=== PATIENT | female | born 1945 | race Caucasian/White ===

== ENCOUNTER 2019-11-04 15:42 | Outpatient (REF) | payer SELFPAY ==
[2019-11-04 19:14] LABS: Chol HDL Ratio 5.92 mg/dL (0.0-4.40); Cholesterol 284 mg/dL (0-200); Glucose 203 mg/dL (65-115); HDL Cholesterol 48 mg/dL (60-100); Triglycerides 559 mg/dL (0-150)
[2019-11-04 21:07] LABS: Estmated Average Glucose 160; Hemoglobin A1C 7.2 % (4.0-6.0)
[2019-11-04 21:08] LABS: LDL Cholesterol Direct 175 mg/dL (0-100)
== END 2019-11-04 15:43 | disposition home or self-care (01) ==
LOC: LAB 15:42
PROVIDERS: Family Provider Nurse Practitioner Family; PCP Nurse Practitioner Family; Visit Provider Dermatology
DX: Z13.9 Encounter for screening, unspecified (principal)
CPT/HCPCS: 80061; 82947; 83036; 83721

== ENCOUNTER → 2019-11-27 15:26 | Outpatient (BNVA) | payer MEDICARE, SELFPAY | PROVIDERS: Family Provider Nurse Practitioner Family; PCP Nurse Practitioner Family; Visit Provider Nurse Practitioner Family | DX: M25.532 Pain in left wrist (principal); M19.032 Primary osteoarthritis, left wrist | CPT/HCPCS: 73110 ==

== ENCOUNTER → 2019-12-08 10:17 | Outpatient (BNVA) | payer MEDICARE, SELFPAY | PROVIDERS: Family Provider Nurse Practitioner Family; PCP Nurse Practitioner Family; Visit Provider Nurse Practitioner Family | DX: D64.9 Anemia, unspecified (principal); E03.9 Hypothyroidism, unspecified; G56.02 Carpal tunnel syndrome, left upper limb; W57.XXXA Bitten or stung by nonvenomous insect and other nonvenomous arthropods, initial encounter | CPT/HCPCS: 80053; 81001; 83540; 84443; 85025 ==

== ENCOUNTER → 2020-01-28 09:37 | Outpatient (BNVA) | payer MEDICARE, SELFPAY | PROVIDERS: Family Provider Nurse Practitioner Family; PCP Nurse Practitioner Family; Visit Provider Nurse Practitioner Family | DX: R20.0 Anesthesia of skin (principal); E11.59 Type 2 diabetes mellitus with other circulatory complications | CPT/HCPCS: 72040; 83036 ==

== ENCOUNTER 2020-02-26 09:57 | Outpatient (CLI) | payer MEDICARE, SELFPAY ==
--- NOTE | 2020-02-26 10:30 | CT_ITS ---
WS: [id number] CT CERVICAL SPINE TECHNIQUE: Noncontrast CT of the cervical spine with coronal and sagittal reformatted images. CLINICAL INFORMATION: neck pain and arm numbness COMPARISON: None. DLP: 1446.[address] scans at [facility] use at least one of these dose optimization techniques: automat ed exposure control; mA and/or kV adjustment per patient size (includes targeted exams where dose is matched to clinical indication); or iterative reconstruction. FINDINGS: Exaggeration the normal cervical lordosis. Normal C1-2 articulation. No high-grade central canal sten osis. Mild spondylitic changes worse at C4-C6 with osteophytic ridging. C2-C3: Normal. C3-C4: Mild disc osteophytic ridging. Spinal canal and foramen are patent. C4-C5: Mild disc osteophytic ridging. Moderate to severe left and no significant right bony foraminal narrowing. Moderate facet arthropathy. Mild central canal stenosis. C5-C6: Disc osteophytic ridging with severe left and moderate right bony foraminal narrowing. Moderat e facet arthropathy. Mild central canal stenosis. C6-C7: Left eccentric disc osteophyte ridging. Moderate to severe left and no significant right jose inal narrowing. Mild facet arthropathy. Mild central canal stenosis with a small left pericentral dis c osteophyte protrusion. C7-T1: No significant disc bulging. Spinal canal and foramen are patent. Visualized posterior nasopharynx: Normal. Prevertebral soft tissues: Normal. CT/CT cervical spin wo con* [id number] IMPRESSION: 1. Slight exaggeration of the normal cervical lordosis. Mild spondylitic smith es. 2. Disc osteophyte complexes at C4-C5, C5-C6, and C6-C7 with mild central stacey l stenosis at these levels. 3. Moderate to severe bony foraminal narrowing left C4-C5, left C5-C6 ,and lef t C6-C7. 4. Left pericentral disc osteophyte protrusion left C6-C7 with mild central ca nal stenosis.
== END 2020-02-26 09:58 | disposition home or self-care (01) ==
PROVIDERS: Family Provider Nurse Practitioner Family; PCP Nurse Practitioner Family; Visit Provider Nurse Practitioner Family
DX: M54.2 Cervicalgia (principal); R20.0 Anesthesia of skin; M25.78 Osteophyte, vertebrae; M48.02 Spinal stenosis, cervical region
CPT/HCPCS: 72125

== ENCOUNTER → 2020-03-02 11:21 | Outpatient (BNVA) | payer MEDICARE, SELFPAY | PROVIDERS: Family Provider Nurse Practitioner Family; PCP Nurse Practitioner Family; Visit Provider Nurse Practitioner Family | DX: D64.9 Anemia, unspecified (principal); R53.83 Other fatigue | CPT/HCPCS: 82728; 82746; 83540; 85025 ==

== ENCOUNTER → 2020-03-21 11:31 | Outpatient (BNVA) | payer MEDICARE, SELFPAY | PROVIDERS: Family Provider Nurse Practitioner Family; PCP Nurse Practitioner Family; Referring Provider Licensed Practical Nurse; Visit Provider Specialist | DX: M50.020 Cervical disc disorder with myelopathy, mid-cervical region, unspecified level (principal); G56.02 Carpal tunnel syndrome, left upper limb | CPT/HCPCS: 95908 ==

== ENCOUNTER 2020-03-24 07:07 | Outpatient (CLI) | payer MEDICARE, SELFPAY ==
--- NOTE | 2020-03-24 07:19 | NMCV_ITS ---
NM darby perf SPECT r/s* [id number] Dai Ross Age: 74 Gender: F : 1945 Exam Date: 03/24/2020 08:16 Ordering Phys: Rosemary Szymanski MD ([email or web address]) Technologist: FLORY Hatfield Exam Location: [facility] Indications: CORONARY ARTERY DISEASE, CHEST PAIN, FATIGUE, SHORTNESS OF BREATH STRESS TEST Please [facility] IMAGE PROTOCOL Rest/Stress 1 Lexiscan Day Radiopharmaceutical Dose (mCi) Administration Site Administered by Rest: Tc-99m 10.8 IV FLORY Ribeiro Sestamibi Stress:Tc-99m 32.4 IV FLORY Hatfield Sestamiandrae Rest: 24-Mar-2020 60 Discovery 630 Stress: 24-Mar-2020 30 Discovery 630 0.4mg Lexiscan. Images obtained in supine and prone position. SPECT RESULTS Technical Quality: Excellent Raw Data Analysis: Normal Image Corrections: No attenuation or motion correction applied Summed Stress Score: 3 Summed Rest Score: 0 Summed Difference Score: 3 PERFUSION FINDINGS Small area of reversibility noted in the apical region of the left ventricle in the absence of wall motion abnormality it could be apical thinning artifact. This study is negative for ischemia. EKG segment will be documented separately. FUNCTIONAL RESULTS (calculated via Gated SPECT) Stress Image LV EF (%): 72 Stress EDV (mL):60 TID: 1.06 Stress ESV (mL):17 Rest Image LV EF (%): 72 FUNCTIONAL FINDINGS: There is normal left ventricular systolic function. IMPRESSIONS Small area of reversibility noted in the apical region of the left ventricle in the absence of wall motion abnormality it could be apical thinning artifact. This study is negative for ischemia. EKG segment will be documented separately. Rosemary Szymanski MD (Electronically Signed) Final Date: 25 March 2020 13:58 S
--- NOTE | 2020-03-24 07:19 | ECG_ITS ---
[facility] Test Date: 2020-03-24 Pat Name: Dai Ross Department: Room: Gender: Female Card Grader: : 1945 Requested By: Rosemary Szymanski Order Number: [id number] Twila MD: Rosemary Szymanski M.D. Interpretive Statements NAME OF STUDY: LEXISCAN SESTAMIBI STRESS TEST INDICATION: CAD/CHEST PAIN, NOTE: Please note that this is the electrocardiogram portion of the Lexiscan/Sestamibi stress test. The perfusion scan will be documented separately. DATA: Baseline heart rate was 49 beats per minute. Baseline blood pressure was 196/88 millimeters of mercury. Target heart rate was 148. Maximum heart rate achieved was 100. which was 67 % of the predicted target heart rate. Maximum blood pressure was 219/101 millimeters of mercury. The reason for ending the test was completion of the protocol. The patient did not experience any symptoms. ELECTROCARDIOGRAM: BASELINE: Sinus bradycardia. Normal axis. Inferolateral ST-T changes nonspecific abnormal. No arrhythmia noted. EXERCISE: After Lexiscan injection, no ST-T changes suggestive of ischemic noted. No arrhythmia noted. CONCLUSION: Please note due to baseline abnormality of the EKG specificity and sensitivity of the EKG portion of LexiScan MIBI stress test will be low 1. EKG not suggestive of ischemia 2. Lexiscan injection unremarkable. 3. Perfusion scan will be documented separately. Electronically Signed On 03-31-2020 22:21:58 CDT by Rosemary Szymanski M.D. [id number]
[2020-03-24 07:29] VITALS: BMI 27.6
[2020-03-24] MEDS: regadenoson 0.4 Mg/5 ml Syringe IVP (08:57)
[2020-03-24 09:13] VITALS: BP 182/83; PULSE 97
== END 2020-03-24 07:08 | disposition home or self-care (01) ==
PROVIDERS: Family Provider Nurse Practitioner Family; PCP Nurse Practitioner Family; Visit Provider Internal Medicine Cardiovascular Disease
DX: I25.10 Atherosclerotic heart disease of native coronary artery without angina pectoris (principal); R07.9 Chest pain, unspecified; R53.83 Other fatigue; R06.02 Shortness of breath
CPT/HCPCS: 78452; 93017; A9500; J2785

== ENCOUNTER 2020-04-05 12:40 | Outpatient (CLI) | payer MEDICARE, SELFPAY ==
--- NOTE | 2020-04-05 13:00 | MR_ITS ---
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 COMPARISON: 02/26/2020 Mild increase in the cervical lordosis. No marrow edema or fracture. Increased T2 signal in the central cervical cord begins at the mid C2 level. Intermittently visualize d increased T2 signal of the cervical cord into the upper thoracic cord. Increased signal extends at least to T5. Increased signal measures up to 2 mm in diameter and is most significant at the C5-T1 le tremaine. Craniocervical junction, C1 and C2 relationship, odontoid process and soft tissues are normal. C2-C3: Normal. C3-C4: Normal. C4-C5: Small central disc protrusion. Osteophytic ridging and mild central and bilateral foraminal st enosis. C5-C6: Diffuse osteophytic ridging and disc bulging. Quality of examination is limited which is proba larry due to lordosis of the patient. There is at least mild central and bilateral foraminal stenosis. Suspect moderate stenosis at the foramen but is difficult to quantify. C6-C7: Diffuse osteophytic ridging and annular disc bulging. Disc osteophyte complex LEFT paracentral extends into the foramen. There is at least moderate central and foraminal stenosis. C7-T1: No stenosis appreciated. Limited evaluation of the paraspinal soft tissues. MR/MR cervical spin wo con* [id number] IMPRESSION: 1. Quality of this examination is limited. 2. 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 The ent tommie syrinx is not evident as it extends into the thoracic cord. 3. Multilevel central and foraminal stenoses beginning at C4-5 through C6-7. M ost significant stenosis appears to be at C5-6 and C6-7. Stenosis difficult to quantify due to quality of examination.
--- NOTE | 2020-04-05 13:45 | XR_ITS ---
WS: [id number] LATERAL CERVICAL SPINE: 3 view. Lateral radiographs are performed in upright neutral, flexion and extension to the patient's toleranc e. HISTORY: Neck pain COMPARISON: 01/28/2020 Marked increase in cervical lordosis. Mild disc space narrowing throughout. Endplate osteophytes at a ll levels. Diffuse osteopenia. With flexion and extension no instability. XR/XR cervical spine fl/ex [id number] IMPRESSION: Increase in cervical lordosis with no instability.
== END 2020-04-05 12:41 | disposition home or self-care (01) ==
LOC: RADWPI 12:43
PROVIDERS: Family Provider Nurse Practitioner Family; PCP Nurse Practitioner Family; Visit Provider Licensed Practical Nurse
DX: M50.020 Cervical disc disorder with myelopathy, mid-cervical region, unspecified level (principal); M40.50 Lordosis, unspecified, site unspecified; M48.02 Spinal stenosis, cervical region
CPT/HCPCS: 72040; 72141

== ENCOUNTER → 2020-04-20 10:52 | Outpatient (BNVA) | payer MEDICARE, SELFPAY | PROVIDERS: Family Provider Nurse Practitioner Family; PCP Nurse Practitioner Family; Visit Provider Licensed Practical Nurse | DX: M50.020 Cervical disc disorder with myelopathy, mid-cervical region, unspecified level (principal); G95.0 Syringomyelia and syringobulbia; M48.02 Spinal stenosis, cervical region; M47.12 Other spondylosis with myelopathy, cervical region; G56.02 Carpal tunnel syndrome, left upper limb | CPT/HCPCS: 99214 ==

== ENCOUNTER 2020-04-28 08:25 | Outpatient (CLI) | payer MEDICARE, SELFPAY ==
--- NOTE | 2020-04-28 08:45 | MR_ITS ---
WS: [id number] MRI CERVICAL SPINE, with and without contrast. HISTORY: Multilevel syrinx COMPARISON: 04/05/2020. MRI cervical spine performed with and without contrast. Moderate increase in cervical lordosis. Multilevel facet joint arthritis, disc space narrowing and os teophytosis. Syrinx beginning in the central cord at the C2 level is intermittently visualized throughout the cerv ical cord into the upper thoracic cord at least to the level of T3-4. The syrinx is very small calibe r at the T2 level and better visualized on the prior study. Slightly lobulated syrinx posterior to th e C4-5 and C5-6 levels is the area widest diameter near 3 mm. Diameter of 3 mm is noted C5 level and also T1. No interval progression. No mass or abnormal enhancement. Craniocervical junction, C1 and C2 relationship, odontoid process and soft tissues are normal. C2-C3: Normal. C3-C4: Normal. C4-C5: Mild osteophytic ridging and small central disc protrusion. Mild bilateral foraminal and centr al stenosis. C5-C6: Diffuse osteophytic ridging with annular disc bulging and a central protrusion. Mild central a nd bilateral foraminal stenosis. C6-C7: Diffuse osteophytic ridging and annular disc bulging. LEFT paracentral disc osteophyte complex with mild encroachment upon the thecal sac. Moderate central and bilateral foraminal stenosis. C7-T1: Normal. Paraspinal soft tissue are normal. Mild ectopia the cerebellar tonsils. Normal enhancement. MR/MR cervical spine wo/w [id number] IMPRESSION: 1. Multifocal syrinx beginning at the level of C2 into the upper thoracic cord is similar to the prior study of 04/05/2020. No mass or abnormal enhancement. L argest diameter 3 mm. 2. Multilevel mild to moderate central and bilateral foraminal stenosis with n o progression. Most significant stenosis at C5-6 and C6-7 as described on the p rior study also.
--- NOTE | 2020-04-28 09:30 | MR_ITS ---
WS: [id number] MRI THORACIC SPINE with and without contrast. HISTORY: Multilevel Syrinx COMPARISON: None available. TECHNIQUE: Multiplanar sequences are performed in sagittal and axial planes. Study performed with and without contrast. Scoliosis and RIGHT convex curvature of the mid to upper thoracic spine. Increase in kyphosis. Multilevel syrinx extending through the cervical cord continues into the thoracic cord. 5 mm diameter of the the syrinx which continues from T1 to T4. Syrinx is reidentified at the T4-5 level through T6 . There is a very small amount of increased signal centrally in the cord at T7 and T8 and also distal ly at the T11 level which I believe is extension of the syrinx throughout nearly the entire cord. Zeb y small caliber syrinx distally. No abnormal enhancement or tumor is identified. Conus tapers normall y and ends at the L1 level. T1-2: Facet arthropathy with no stenosis. T2-3: Facet arthropathy with no stenosis. T3-4: Normal. T4-5: Normal. T5-6: Normal. T6-7: Central to LEFT paracentral moderate-sized disc protrusion encroaching upon the ventral thecal sac with no cord contact. T7-8: Facet arthritis without stenosis. T8-9: Moderate-sized RIGHT paracentral disc protrusion without cord contact. Moderate bilateral fora alphonse stenosis. T9-10: Facet joint arthritis. Moderate bilateral foraminal stenosis. T10-11: Normal. T11-12: Mild annular disc bulging and facet arthritis. Disc osteophyte disease at L1-2 and L2-3 without significant central stenosis. Large hiatal hernia. T he entire stomach is nearly intrathoracic. Mild atherosclerosis and ectasia thoracic aorta. MR/MR thoracic spine wo/w [id number] IMPRESSION: 1. Nearly contiguous multilevel thoracic cord syrinx. Multifocal areas of syri nx noted with the largest component in the upper thoracic cord measuring 5 mm d iameter. 2. No severe central stenosis. 3. Moderate bilateral foraminal stenosis at T8-9 and T9-10. 4. No enhancing tumor. 5. Moderate-sized LEFT paracentral disc protrusion at T6-7 without cord contac t. 6. Moderate size RIGHT paracentral disc protrusion at T8-9 without cord contac t.
[2020-04-28 09:39] LABS: Blood Urea Nitrogen 17 mg/dL (8-23)
== END 2020-04-28 08:26 | disposition home or self-care (01) ==
PROVIDERS: PCP Nurse Practitioner Family; Visit Provider Licensed Practical Nurse
DX: G95.0 Syringomyelia and syringobulbia (principal); M48.04 Spinal stenosis, thoracic region; M51.24 Other intervertebral disc displacement, thoracic region; M48.02 Spinal stenosis, cervical region
CPT/HCPCS: 36415; 72156; 72157; 82565; 84520; A9579

== ENCOUNTER → 2020-05-03 11:59 | Outpatient (BNVA) | payer MEDICARE, SELFPAY | PROVIDERS: PCP Nurse Practitioner Family; Visit Provider Licensed Practical Nurse | DX: M19.90 Unspecified osteoarthritis, unspecified site (principal); G95.0 Syringomyelia and syringobulbia; M50.020 Cervical disc disorder with myelopathy, mid-cervical region, unspecified level; M48.02 Spinal stenosis, cervical region; M47.12 Other spondylosis with myelopathy, cervical region; G56.02 Carpal tunnel syndrome, left upper limb | CPT/HCPCS: 99214 ==

== ENCOUNTER 2020-06-09 06:00 | Outpatient (RCR) | payer MEDICARE, SELFPAY | END 2020-07-09 23:59 | disposition home or self-care (01) | LOC: WPT 06:00 | PROVIDERS: PCP Nurse Practitioner Family; Referring Provider Licensed Practical Nurse; Visit Provider Licensed Practical Nurse | DX: M50.020 Cervical disc disorder with myelopathy, mid-cervical region, unspecified level (principal); M48.02 Spinal stenosis, cervical region; M47.892 Other spondylosis, cervical region | CPT/HCPCS: 97163; 97530 ==

== ENCOUNTER → 2020-06-29 14:33 | Outpatient (BNVA) | payer MEDICARE, SELFPAY | PROVIDERS: PCP Nurse Practitioner Family; Visit Provider Nurse Practitioner Family | DX: I10 Essential (primary) hypertension (principal); F41.9 Anxiety disorder, unspecified; E11.59 Type 2 diabetes mellitus with other circulatory complications; E78.2 Mixed hyperlipidemia; E55.9 Vitamin D deficiency, unspecified; F32.9 Major depressive disorder, single episode, unspecified | CPT/HCPCS: 80053; 80061; 81003; 82306; 83036; 84443; 85025 ==

== ENCOUNTER → 2020-07-08 10:31 | Outpatient (BNVA) | payer MEDICARE, SELFPAY | PROVIDERS: PCP Nurse Practitioner Family; Visit Provider Nurse Practitioner Family | DX: Z11.59 Encounter for screening for other viral diseases (principal) | CPT/HCPCS: 87635 ==

== ENCOUNTER → 2020-08-12 08:46 | Outpatient (BNVA) | payer MEDICARE, SELFPAY | PROVIDERS: PCP Nurse Practitioner Family; Visit Provider Nurse Practitioner Family | DX: E55.9 Vitamin D deficiency, unspecified (principal); I10 Essential (primary) hypertension; E78.2 Mixed hyperlipidemia; E11.59 Type 2 diabetes mellitus with other circulatory complications | CPT/HCPCS: 80053; 80061; 81003; 82306; 83036; 84443; 85025 ==

== ENCOUNTER 2020-10-03 09:38 | Outpatient (CLI) | payer MEDICARE, SELFPAY ==
--- NOTE | 2020-10-03 09:45 | CT_ITS ---
WS: [id number] CT HEAD NONCONTRAST HISTORY: J32.9 - Chronic sinusitis, unspecified TECHNIQUE: Contiguous axial imaging performed through the brain in 2.5 mm imaging. Bone and soft tiss ue windows. Sagittal and coronal reformats reviewed. All CT scans at [facility] use at le ast one of these dose optimization techniques: automated exposure control; mA and/or kV adjustment pe r patient size (includes targeted exams where dose is matched to clinical indication); or iterative r econstruction. DLP: 856.13 mGy.cm COMPARISON: 12/15/2005 No acute intracranial hemorrhage, midline shift or mass effect. Very mild atrophy and mild chronic microvascular ischemic disease. Mild progression of microvascular disease since 2005. No large infarcts. Ventricles: Normal size with no hydrocephalus. Paranasal sinuses: As visualized are clear. Mastoid air cells: Well pneumatized. Calvarium and scalp: Skull is intact with no soft tissue edema or swelling. CT/CT head wo con* [id number] IMPRESSION: 1. No acute intracranial hemorrhage or edema. 2. Mild atrophy and mild chronic microvascular ischemic disease. 3. No significant sinus disease.
== END 2020-10-03 09:39 | disposition home or self-care (01) ==
LOC: RAD 09:42
PROVIDERS: PCP Nurse Practitioner Family; Visit Provider Nurse Practitioner Family
DX: J32.9 Chronic sinusitis, unspecified (principal); I67.82 Cerebral ischemia; G31.9 Degenerative disease of nervous system, unspecified
CPT/HCPCS: 70450

== ENCOUNTER → 2020-12-01 00:01 | Outpatient (BNVA) | payer MEDICARE, SELFPAY | PROVIDERS: PCP Nurse Practitioner Family; Visit Provider Nurse Practitioner Family | DX: E03.9 Hypothyroidism, unspecified (principal); I10 Essential (primary) hypertension; E55.9 Vitamin D deficiency, unspecified; E78.2 Mixed hyperlipidemia; D64.9 Anemia, unspecified; E11.59 Type 2 diabetes mellitus with other circulatory complications | CPT/HCPCS: 80053; 80061; 81003; 82306; 82607; 82746; 83036; 83550; 84443; 85025 ==

== ENCOUNTER 2021-02-03 22:51 | Emergency (ER) | payer MEDICARE, SELFPAY ==
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
[2021-02-03 23:01] VITALS: BP 158/103; PULSE 75; RESP 18; TEMP 36.2; O2SAT 97; BMI 25.4
[2021-02-03 23:14] LABS: Basophils # 0.1 10^3/uL (0.0-0.1); Basophils % 0.7 %; Eosinophils # 0.4 10^3/uL (0.0-0.8); Eosinophils % 5.9 %; Hematocrit 40.4 % (37.0-47.0); Lymphocytes # 1.8 10^3/uL (0.8-4.8); Lymphocytes % 24.7 %; Mean Corpuscular HGB Conc 32.2 g/dL (30.0-36.0); Mean Corpuscular Hemoglobin 26.7 pg (28.0-34.0); Mean Platelet Volume 9.4 fL (7.4-10.4); Monocytes # 0.7 10^3/uL (0.2-0.9); Neutrophils # 4.25 10^3/uL (1.8-7.7); Neutrophils % 58.7 %; Nucleated Red Blood Cells % 0 %; Platelet Count 286 10^3/cmm (130-400); Red Blood Count 4.87 10^6/uL (4.1-5.3); Red Cell Distribution Width 17.2 % (12.1-15.1); White Blood Count 7.2 10^3/uL (4.0-10.0)
[2021-02-03] MEDS: iodixanol 320 mg/mL 100mL Btl IV (23:17)
[2021-02-03 23:30] LABS: Alanine Aminotransferase 18 U/L (0-33); Albumin Level 4.6 g/dL (3.5-5.2); Alkaline Phosphatase 113 IU/L (35-105); Anion Gap 17.9 (5-19); Aspartate Amino Transferase 22 U/L (0-32); Blood Urea Nitrogen 21 mg/dL (8-23); Calcium 9.2 mg/dL (8.5-10.5); Carbon Dioxide 22 mmol/L (22-29); Chloride 104 mmol/L (98-107); Globulin 2.4 g/dL (1.3-4.6); Glucose 191 mg/dL (65-115); Osmolality Calculated 298 mOsm/kg (285-295); Potassium 3.9 mmol/L (3.5-5.1); Sodium 140 mmol/L (136-145); Total Bilirubin 0.2 mg/dL (0.15-1.2)
[2021-02-03 23:59] VITALS: BP 145/93; PULSE 79; RESP 18; O2SAT 97
== END 2021-02-04 00:01 | disposition home or self-care (01) ==
PROVIDERS: Emergency Provider Emergency Medicine; PCP Nurse Practitioner Family
DX: S13.4XXA Sprain of ligaments of cervical spine, initial encounter (principal); Z79.02 Long term (current) use of antithrombotics/antiplatelets; Z79.84 Long term (current) use of oral hypoglycemic drugs; I25.10 Atherosclerotic heart disease of native coronary artery without angina pectoris; E11.9 Type 2 diabetes mellitus without complications; I10 Essential (primary) hypertension; E78.2 Mixed hyperlipidemia; V89.2XXA Person injured in unspecified motor-vehicle accident, traffic, initial encounter
CPT/HCPCS: 70450; 71045; 71260; 72125; 74177; 80053; 85025; 99283; Q9967

== ENCOUNTER → 2021-02-10 11:57 | Outpatient (BNVA) | payer MEDICARE, SELFPAY | PROVIDERS: PCP Nurse Practitioner Family; Visit Provider Nurse Practitioner Family | DX: D64.9 Anemia, unspecified (principal); J02.9 Acute pharyngitis, unspecified; H65.93 Unspecified nonsuppurative otitis media, bilateral; I25.10 Atherosclerotic heart disease of native coronary artery without angina pectoris; E55.9 Vitamin D deficiency, unspecified; E78.2 Mixed hyperlipidemia; E03.9 Hypothyroidism, unspecified; E11.9 Type 2 diabetes mellitus without complications | CPT/HCPCS: 80053; 82728; 83550; 85025; 87070 ==

== ENCOUNTER 2021-04-05 14:29 | Outpatient (CLI) | payer MEDICARE, SELFPAY ==
[2021-04-06 13:07] LABS: Lyme AB Screen <0.90 index
[2021-04-09 15:22] LABS: E. Chaffeensis AB IGG <1:64; E. Chaffeensis AB IGM <1:20
[2021-04-11 17:16] LABS: RMSF IGG NOT DETECTED; RMSF IGM NOT DETECTED
[2021-04-12 17:32] LABS: Francisella Tularensis DA <1:20 titer
== END 2021-04-05 14:30 | disposition home or self-care (01) ==
PROVIDERS: PCP Nurse Practitioner Family; Visit Provider Nurse Practitioner Family
DX: T14.8XXA Other injury of unspecified body region, initial encounter (principal); W57.XXXA Bitten or stung by nonvenomous insect and other nonvenomous arthropods, initial encounter
CPT/HCPCS: 36415; 86000; 86618; 86666; 86757

== ENCOUNTER 2021-04-06 13:01 | Emergency (ER) | payer MEDICARE, SELFPAY ==
[2021-04-06 13:50] VITALS: BP 131/74; PULSE 70; RESP 16; TEMP 37.1; O2SAT 98; BMI 24.3
[2021-04-06 16:54] LABS: Basophils % 0.6 %; Eosinophils # 0.5 10^3/uL (0.0-0.8); Eosinophils % 8.3 %; Hemoglobin 13.1 g/dL (11.5-15.3); Lymphocytes # 2.1 10^3/uL (0.8-4.8); Lymphocytes % 33.5 %; Mean Corpuscular Hemoglobin 27.8 pg (28.0-34.0); Mean Corpuscular Volume 86.9 fL (81-99); Mean Platelet Volume 9.5 fL (7.4-10.4); Monocytes # 0.6 10^3/uL (0.2-0.9); Monocytes % 9.4 %; Neutrophils # 3.03 10^3/uL (1.8-7.7); Nucleated Red Blood Cells % 0 %; Platelet Count 318 10^3/cmm (130-400); Red Blood Count 4.72 10^6/uL (4.1-5.3); Red Cell Distribution Width 14.4 % (12.1-15.1); White Blood Count 6.3 10^3/uL (4.0-10.0)
[2021-04-06 17:03] LABS: Alanine Aminotransferase 11 U/L (0-33); Albumin Level 4.4 g/dL (3.5-5.2); Alkaline Phosphatase 104 IU/L (35-105); Anion Gap 16.3 (5-19); Aspartate Amino Transferase 15 U/L (0-32); Blood Urea Nitrogen 12 mg/dL (8-23); Calcium 9.8 mg/dL (8.5-10.5); Carbon Dioxide 25 mmol/L (22-29); Chloride 101 mmol/L (98-107); Globulin 3.1 g/dL (1.3-4.6); Glucose 108 mg/dL (65-115); Osmolality Calculated 286 mOsm/kg (285-295); Potassium 4.3 mmol/L (3.5-5.1); Sodium 138 mmol/L (136-145); Total Bilirubin 0.4 mg/dL (0.15-1.2); Total Protein 7.5 g/dL (6.6-8.7)
--- NOTE | 2021-04-06 21:11 | ED_ITS ---
HPI - General Adult General: Chief complaint: General Medical Stated complaint: HTN Time Seen by Provider: 04/06/21 21:11 History of Present Illness: HPI narrative: Patient is a 75-year-old female comes to the ED with high blood pressure. Patient says that her blood pressure medications were changed yesterday and that last night she was having high blood pressure and was unable to sleep or rest well. She was getting blood pressure readings of a systolic around 200 and a diastolic around 100 at home. Patient says she has been struggling with elevated blood pressures for months now and her doctors are dry to get it under control. She has similar episodes like this over the past couple months and they usually occur at night where she has an elevated blood pressure and she starts feeling a little bit of chest pressure and nausea. Yesterday she was prescribed carvedilol and she took her first dose of it last night that is when she started feeling sick to her stomach. Here in the ED she feels nauseous and has a headache and is also complaining of some mild chest pain. She says the chest pain started last night and she describes it as a pressure on the left lateral side of chest. She rates the chest pain a 5 out of 10 currently. Patient took her daily 81 mg aspirin today and she also takes Plavix. She says the chest pain has been going on for couple days and started when she was at rest. She has some clonidine that she is supposed to take it home whenever she gets elevated blood pressure but she did not take it today. Patient says she did take her nightly dose of valsartan while in the ED waiting to be seen. Associated symptoms: Reports chest pain, headache(s) and nausea; Deny dyspnea, rash, palpitations or vomiting Review of Systems Const: Denies: fever(s), chills or fatigue Eyes: Denies: change in vision or eye discomfort ENMT: Denies: throat pain, odynophagia, nasal discharge or nasal congestion Card: Reports: chest pain; Denies: palpitations, edema, swelling of feet/ankles, dyspnea on exertion or orthopnea Resp: Denies: dyspnea, productive cough or non-productive cough GI: Reports: nausea; Denies: abdominal pain, vomiting, diarrhea, constipation or hematochezia : Denies: flank pain, dysuria or hematuria Musc: Denies: neck pain, back pain or extremity swelling Skin/Breast: Denies: rash or new lesions Neuro: Reports: headache(s); Denies: numbness in extremities or weakness in extremities PFSH ED PFSH: Medical History Anemia Anxiety and depression Patient has been taking Xanax BID for a few months. This was started to help with anxiety that may be associated with elevated blood pressures. She is doing well with blood pressures now, and wants to work on cutting back on Xanax. She is concerned about the medication's risk of becoming habit forming. Arteriosclerotic heart disease Bronchitis CAD (coronary artery disease) Cervical disc disorder with myelopathy of mid-cervical region Chest pain Chronic sinusitis Diabetes mellitus, type II Essential hypertension Patient has cardiac history and has in the past several months had episodes with elevated BP. The spikes occur mainly at night. She was given Xanax to help with anxiety related to blood pressure and this has helped. Fatigue Hiatal hernia Hypothyroid Patient has history of hypothyroid and takes daily Levothyroxine. She lenard washington takes 25mcg daily. Mixed hyperlipidemia Patient has CAD and history of elevated lipids. She is taking medications as ordered. Oral herpes simplex infection Osteoarthritis cervical spine Otitis media Pharyngitis Stenosis of cervical spine with myelopathy Symptoms of urinary tract infection Syrinx of spinal cord Tick bite Tick bite Vitamin D deficiency Patient has history of Vitamin D deficiency. Surgical History H/O heart artery stent Angioplasty with placement of 3 stents in the mid and left anterior descending. History of colonoscopy S/P hemorrhoidectomy S/P hysterectomy S/P tonsillectomy Family History Mother Diabetes Hypertension Father Hypertension Other Cancer H/O heart artery stent Social History Alcohol intake: never Household members: spouse Marital status: Current occupational status: retired History of recent travel: No Elizabeth/Spiritism: Sabianism Physical Exam Const: COMMON NORMALS: no acute distress, patient oriented x3 and alert GENERAL APPEARANCE: cooperative and comfortable HENMT: COMMON NORMALS: normocephalic HEAD & SCALP: normocephalic MOUTH: Normal oral and palatal mucosa present THROAT: posterior oropharynx normal and uvula midline Neck/C-Spine: COMMON NORMALS: supple GENERAL: Yes normal visual inspection Resp: COMMON NORMALS: normal respiratory effort, No retractions, No use of accessory muscles and clear to auscultation bilaterally EFFORT & INSPECTION: Yes able to speak in complete sentences, No tachypneic, No respiratory distress and No labored AUSCULTATION: clear to auscultation bilaterally Cardio: COMMON NORMALS: regular rate, regular rhythm, S1 normal heart sound present, S2 normal heart sound present, No gallops present (Cardio), No clicks present (Cardio), No murmurs present (Cardio) and Peripheral pulses 2+ throughout RATE: regular rate RHYTHM: regular rhythm HEART SOUNDS: S1 normal heart sound present and S2 normal heart sound present PERIPHERAL PULSES: Peripheral pulses 2+ throughout GI: COMMON NORMALS: Normal to inspection, nondistended, normoactive bowel sounds present, Soft to palpation, non-tender and no masses PALPATION: Yes Soft to palpation : COMMON NORMALS: Yes no CVA tenderness BLADDER/KIDNEY EXAM: Yes no CVA tenderness Back/Pelvis: COMMON NORMALS: no CVA tenderness Extremity: COMMON NORMALS: normal to inspection Neuro: COMMON NORMALS: patient oriented x3 and moves all extremities SENSORIUM/ORIENTATION: Yes alert Skin: GENERAL SKIN EXAM: dry skin Course Reevaluation(s): Reevaluation #1: Patient's blood pressure went down to 139/89 she says her symptoms resolved and she feels a lot better. Patient was not given any meds while here in the ED, but states she took her nightly dose of valsartan while in the waiting room just before she was called back into the ED. Time: 22:07 Vital Signs: Vital signs: Vital Signs Temperature 97.7 F 04/06/21 21:22 Pulse Rate 60 04/06/21 22:53 Respiratory Rate 15 04/06/21 22:53 Blood Pressure 131/62 04/06/21 22:53 Pulse Oximetry 97 04/06/21 22:53 MDM - General Adult MDM Narrative: Medical decision making narrative: Patient is a 75-year-old female comes to the ED with an episode of elevated blood pressure. Patient says PCP has been struggling to get her blood pressure controlled. When she has elevated blood pressure she feels a headache, nausea and some mild chest pain. Exam showed a nontoxic and healthy appearing female no acute distress or pain. Her blood pressure when she got back into her room here in the ED was 203/100. Rest of her vitals are stable. Exam was benign. CBC and CMP were unremarkable. Troponin negative. EKG showed normal sinus rhythm with no ST segment elevation or depression seen. CT of head showed no acute findings. Chest x-ray showed no acute findings. Patient took her nightly dose of valsartan while in the waiting room of the ED before she was called back into the room. Her blood pressure dropped back down and was 139/89 while she was in the ED room and she said her symptoms had completely resolved. Patient diagnosed with hypertensive urgency and noncardiac chest pain. She was told to contact her PCP tomorrow morning to discuss blood pressure medication management. She does have some clonidine to use as needed for elevated blood pressure and I told her to make sure to use that if her blood pressure starts getting significantly elevated. Return ED precautions given. Patient understood and agree with plan. Lab Data: Attestation: I reviewed the patient's lab results. Labs: Lab Results 04/06/21 04/06/21 04/06/21 Range/Units 16:22 16:22 16:22 WBC 6.3 (4.0-10.0) 10^3/ uL RBC 4.72 (4.1-5.3) 10^6/u L Hgb 13.1 (11.5-15.3) g/dL Hct 41.0 (37.0-47.0) % MCV 86.9 (81-99) fL MCH 27.8 L (28.0-34.0) pg MCHC 32.0 (30.0-36.0) g/dL RDW 14.4 (12.1-15.1) % Plt Count 318 (130-400) 10^3/c mm MPV 9.5 (7.4-10.4) fL Neut % (Auto) 48.0 % Lymph % (Auto) 33.5 % Kaufman % (Auto) 9.4 % Eos % (Auto) 8.3 % Baso % (Auto) 0.6 % Neut # (Auto) 3.03 (1.8-7.7) 10^3/u L Lymph # (Auto) 2.1 (0.8-4.8) 10^3/u L Kaufman # (Auto) 0.6 (0.2-0.9) 10^3/u L Eos # (Auto) 0.5 (0.0-0.8) 10^3/u L Baso # (Auto) 0.0 (0.0-0.1) 10^3/u L Nucleated RBC % (a uto) 0 % Nucleated RBCs # 0.0 /100WBC Sodium 138 (136-145) mmol/L Potassium 4.3 (3.5-5.1) mmol/L Chloride 101 (98-107) mmol/L Carbon Dioxide 25 (22-29) mmol/L Anion Gap 16.3 (5-19) BUN 12 (8-23) mg/dL Creatinine 0.7 (0.5-0.9) mg/dL GFR Calculation Not Reportable Glucose 108 (65-115) mg/dL Calculated Osmolal ity 286 (285-295) mOsm/k g Calcium 9.8 (8.5-10.5) mg/dL Total Bilirubin 0.4 (0.15-1.2) mg/dL AST 15 (0-32) U/L ALT 11 (0-33) U/L Alkaline Phosphata se 104 (35-105) IU/L Troponin T Gen 5 n g/L 8 (0-10) ng/L Total Protein 7.5 (6.6-8.7) g/dL Albumin 4.4 (3.5-5.2) g/dL Globulin 3.1 (1.3-4.6) g/dL 04/06/21 Range/Units 21:28 WBC (4.0-10.0) 10^3/ uL RBC (4.1-5.3) 10^6/u L Hgb (11.5-15.3) g/dL Hct (37.0-47.0) % MCV (81-99) fL MCH (28.0-34.0) pg MCHC (30.0-36.0) g/dL RDW (12.1-15.1) % Plt Count (130-400) 10^3/c mm MPV (7.4-10.4) fL Neut % (Auto) % Lymph % (Auto) % Kaufman % (Auto) % Eos % (Auto) % Baso % (Auto) % Neut # (Auto) (1.8-7.7) 10^3/u L Lymph # (Auto) (0.8-4.8) 10^3/u L Kaufman # (Auto) (0.2-0.9) 10^3/u L Eos # (Auto) (0.0-0.8) 10^3/u L Baso # (Auto) (0.0-0.1) 10^3/u L Nucleated RBC % (a uto) % Nucleated RBCs # /100WBC Sodium (136-145) mmol/L Potassium (3.5-5.1) mmol/L Chloride (98-107) mmol/L Carbon Dioxide (22-29) mmol/L Anion Gap (5-19) BUN (8-23) mg/dL Creatinine (0.5-0.9) mg/dL GFR Calculation Glucose (65-115) mg/dL Calculated Osmolal ity (285-295) mOsm/k g Calcium (8.5-10.5) mg/dL Total Bilirubin (0.15-1.2) mg/dL AST (0-32) U/L ALT (0-33) U/L Alkaline Phosphata se (35-105) IU/L Troponin T Gen 5 n g/L 10 (0-10) ng/L Total Protein (6.6-8.7) g/dL Albumin (3.5-5.2) g/dL Globulin (1.3-4.6) g/dL Imaging Data^: CT Head: Attestation: I personally reviewed and interpreted this imaging study as follows: Radiologist's impression: [address] [address] [address] Scan Report Signed Patient: Dai Ross V Unit #: [id number] : 1945 Age/Sex: 75 / F ADM Date: 04/06/21 Loc: ER Room/Bed: Attending Dr: Ordering Provider/Ordering MD: Stone Jennings Date of Service: 04/06/21 Procedure(s): CT head wo con* [id number] Accession Number(s): [id number] Report Number: [id number] PROCEDURE INFORMATION: Exam: CT Head Without Contrast Exam date and time: 04/06/2021 9:26 PM Age: 75 years old Clinical indication: Pain; Headache; Patient HX: LOPEZ with hypertension. ; Additional info: Hypertensive urgency with headache TECHNIQUE: Imaging protocol: Computed tomography of the head without contrast. Radiation optimization: All CT scans at this facility use at least one of these dose optimization techniques: automated exposure control; mA and/or kV adjustment per patient size (includes targeted exams where dose is matched to clinical indication); or iterative reconstruction. COMPARISON: 1. CT head wo con* [id number] 2021-02-03 23:[address] head wo con* [id number] 2020-10-03 10:50 RADIATION DOSE METRICS: Total DLP (mGy-cm): 919.72 FINDINGS: Brain: Normal. No hemorrhage. Unremarkable white matter. No mass effect. Cerebral ventricles: No ventriculomegaly. Paranasal sinuses: Visualized sinuses are unremarkable. No fluid levels. Mastoid air cells: Visualized mastoid air cells are well aerated. Bones/joints: Unremarkable. No acute fracture. Soft tissues: Unremarkable. CT/CT head wo con* [id number] IMPRESSION: No acute intracranial abnormality. Radiation Dose CTDIVOL = (mGy): DLP = 919.72 (mGy-cm) Dictated By: Navarro Richardson MD Signed By: Navarro Richardson MD Signed Date/Time: 04/06/212158 DD/ 56 CXR: Attestation: I personally reviewed and interpreted this imaging study as follows: Radiologist's impression: [address] [address] XRay Report Signed Patient: Dai Ross V Unit #: [id number] : 1945 Age/Sex: 75 / F ADM Date: 04/06/21 Loc: ER Room/Bed: Attending Dr: Ordering Provider/Ordering MD: Stone Jennings Date of Service: 04/06/21 Procedure(s): XR chest 1V portable [id number] Accession Number(s): [id number] Report Number: [id number] PROCEDURE INFORMATION: Exam: XR Chest Exam date and time: 04/06/2021 9:34 PM Age: 75 years old Clinical indication: Pain; Chest pressure; Prior surgery; Surgery type: Stents; Additional info: Central chest pressure. Hypertension TECHNIQUE: Imaging protocol: XR of the chest. Views: 1 view. COMPARISON: 1. CT chest abd pel w con* 2021-02-03 23:18 2. CR XR chest 1V portable [id number] 2021-02-03 23:04 3. CR Chest 1 [place] [id number] 2019-05-12 16:13 4. CR Chest 2 views* [id number] 2017-07-22 13:52 FINDINGS: Lungs: Bilateral medial lower lobe atelectasis adjacent to the hernia. Pleural spaces: Unremarkable. No pleural effusion. No pneumothorax. Heart/Mediastinum: Large hiatal hernia. Bones/joints: Unremarkable. XR/XR chest 1V portable [id number] IMPRESSION: Large hiatal hernia. Dictated By: Navarro Richardson MD Signed By: Navarro Richardson MD Signed Date/Time: 04/06/212203 DD/ 01 EKG Data^: EKG 1: Attestation: I personally reviewed and interpreted this EKG as follows: EKG interpretation date: 04/06/21 Interpretation: Normal sinus rhythm, 75 bpm, no ST segment elevation or depression seen. Computer generated interpretation: Head CT 04/06/21 21:26 IMPRESSION: No acute intracranial abnormality. Radiation Dose CTDIVOL = (mGy): DLP = 919.72 (mGy-cm) Chest X-Ray 04/06/21 21:34 IMPRESSION: Large hiatal hernia. Discharge Plan Discharge Patient Disposition: Home Clinical Impression: Hypertensive urgency, Non-cardiac chest pain Condition: Stable Prescriptions: No Action clonidine HCl 0.1 mg tablet 0.1 mg PO .PRN 30 Days Qty: 10 RF: 0 gabapentin 100 mg capsule 100 mg PO TID RF: 0 doxycycline monohydrate 100 mg capsule 100 mg PO BID 10 Days Qty: 20 RF: 0 pravastatin 80 mg tablet 80 mg PO DAILY Qty: 90 RF: 3 levothyroxine 25 mcg tablet 25 mcg PO DAILY Qty: 90 RF: 1 clopidogrel 75 mg tablet 75 mg PO DAILY Qty: 90 RF: 1 naproxen [Naprosyn] 500 mg tablet 500 mg PO BID PRN (Reason: pain) Qty: 20 RF: 0 levocetirizine 5 mg tablet 5 mg PO DAILY RF: 0 turmeric 400 mg Capsule 400 mg PO DAILY RF: 0 metformin 500 mg tablet 500 mg PO BID RF: 0 carvedilol 3.125 mg tablet 3.125 mg PO BID RF: 0 valsartan 160 mg tablet 160 mg PO DAILY RF: 0 Discharge Orders: Discharge ED (Routine); Ordered 04/06/21 Ordered By: Stone Jennings Referrals: SANJAY Frye, B[facility]ER [Primary Care Provider] - Discharge Diet: Regular Discharge Activity: Increase activity as tolerated Patient Instructions: Hypertensive Crisis (ED), Noncardiac Chest Pain (ED) Activity Restrictions/Additional Instructions: Contact your PCP tomorrow morning to discuss your blood pressure meds and the newly prescribed Carvedilol and symptoms after taking it. Continue taking all home medications as prescribed. Return to the ER or your medical provider if condition worsens. Please read and understand discharge instructions. Thank you for choosing [facility] for your healthcare needs today. Please realize this is an emergency room and that we are providing you with a medical screening exam and this may not be complete and all inclusive of all the testing and or work up that you may need to determine your ailment or severity of your illness. It is very important that you follow up as instructed or that you return to the Emergency Department should you have concerns or if your condition changes or worsens in any way. Coding Level of Care Code ED Teletypewriter Installer for Alessandro Medina Exam Comprehensive
[2021-04-06 21:12] VITALS: BP 208/107; PULSE 72; RESP 18; O2SAT 98
[2021-04-06 21:22] VITALS: BP 203/100; PULSE 72; RESP 16; TEMP 36.5; O2SAT 96
--- NOTE | 2021-04-06 21:26 | CTR_ITS ---
PROCEDURE INFORMATION: Exam: CT Head Without Contrast Exam date and time: 04/06/2021 9:26 PM Age: 75 years old Clinical indication: Pain; Headache; Patient HX: LOPEZ with hypertension. ; Additional info: Hypertensive urgency with headache TECHNIQUE: Imaging protocol: Computed tomography of the head without contrast. Radiation optimization: All CT scans at this facility use at least one of these dose optimization techniques: automated exposure control; mA and/or kV adjustment per patient size (includes targeted exams where dose is matched to clinical indication); or iterative reconstruction. COMPARISON: 1. CT head wo con* [id number] 2021-02-03 23:[address] head wo con* [id number] 2020-10-03 10:50 RADIATION DOSE METRICS: Total DLP (mGy-cm): 919.72 FINDINGS: Brain: Normal. No hemorrhage. Unremarkable white matter. No mass effect. Cerebral ventricles: No ventriculomegaly. Paranasal sinuses: Visualized sinuses are unremarkable. No fluid levels. Mastoid air cells: Visualized mastoid air cells are well aerated. Bones/joints: Unremarkable. No acute fracture. Soft tissues: Unremarkable. CT/CT head wo con* [id number] IMPRESSION: No acute intracranial abnormality. Radiation Dose CTDIVOL = (mGy): DLP = 919.72 (mGy-cm)
--- NOTE | 2021-04-06 21:34 | XRR_ITS ---
PROCEDURE INFORMATION: Exam: XR Chest Exam date and time: 04/06/2021 9:34 PM Age: 75 years old Clinical indication: Pain; Chest pressure; Prior surgery; Surgery type: Stents; Additional info: Central chest pressure. Hypertension TECHNIQUE: Imaging protocol: XR of the chest. Views: 1 view. COMPARISON: 1. CT chest abd pel w con* 2021-02-03 23:18 2. CR XR chest 1V portable [id number] 2021-02-03 23:04 3. CR Chest 1 [place] [id number] 2019-05-12 16:13 4. CR Chest 2 views* [id number] 2017-07-22 13:52 FINDINGS: Lungs: Bilateral medial lower lobe atelectasis adjacent to the hernia. Pleural spaces: Unremarkable. No pleural effusion. No pneumothorax. Heart/Mediastinum: Large hiatal hernia. Bones/joints: Unremarkable. XR/XR chest 1V portable [id number] IMPRESSION: Large hiatal hernia.
[2021-04-06] MEDS: ondansetron 2 mg/ML SDV 2 mL 4 MG IVP (21:43)
[2021-04-06 21:47] LABS: Troponin T (5th) Once 8 ng/L (0-10)
[2021-04-06 21:53] VITALS: BP 139/89; PULSE 62; RESP 20; O2SAT 98
[2021-04-06 21:55] LABS: Troponin T (5th) Once 10 ng/L (0-10)
[2021-04-06 22:53] VITALS: BP 131/62; PULSE 60; RESP 15; O2SAT 97
== END 2021-04-06 22:59 | disposition home or self-care (01) ==
PROVIDERS: Physician Assistant; Absent Provider Internal Medicine Cardiovascular Disease; Emergency Provider Physician Assistant; PCP Nurse Practitioner Family
DX: I16.0 Hypertensive urgency (principal); R07.89 Other chest pain; I25.10 Atherosclerotic heart disease of native coronary artery without angina pectoris; E11.9 Type 2 diabetes mellitus without complications; I10 Essential (primary) hypertension; E03.9 Hypothyroidism, unspecified; E78.2 Mixed hyperlipidemia; Z79.84 Long term (current) use of oral hypoglycemic drugs; Z95.5 Presence of coronary angioplasty implant and graft
CPT/HCPCS: 36415; 70450; 71045; 80053; 84484; 85025; 96374; 99284; J2405

== ENCOUNTER 2021-06-13 07:43 | Outpatient (CLI) | payer MEDICARE, SELFPAY ==
[2021-06-13 07:56] VITALS: BMI 24.0
--- NOTE | 2021-06-13 08:42 | ECG_ITS ---
[facility] Test Date: 2021-06-13 Pat Name: Dai Ross Department: Room: Gender: Female Flavorings Compounder: : 1945 Requested By: Sammie Tovar Order Number: [id number] Twila MD: Rina Akhtar M.D. Interpretive Statements NAME OF STUDY: LEXISCAN SESTAMIBI STRESS TEST INDICATION: Fatigue and angina PROCEDURE: At the baseline, the blood pressure was 131/86 mmHg with a heart rate of 52 bpm. The electrocardiogram showed sinus bradycardia, normal axis. Baseline artifact. Nonspecific ST depression. The Lexiscan was infused over a period of 20 seconds. A total of 0.4 milligrams of Lexiscan was infused. The stress phase was continued for a total of 5 minutes. Heart rate at the end of the stress phase was 77 bpm with a blood pressure of 135/73 mmHg. The EKG at the peak infusion revealed sinus rhythm with no significant ST-T wave changes. The study was terminated due to protocol completion. Sestamibi was injected 20 seconds after the Lexiscan infusion. Blood pressure at the end of the recovery phase was 143/61 mmHg with a heart rate of 66 beats per minute. CONCLUSION: 1. No significant EKG changes with the LexiScan infusion. 2. No LexiScan induced chest pain or cardiac arrhythmia. 3. Normal blood pressure and heart rate response. 4. Sestamibi/sestamibi perfusion scan pending; see separate report. Electronically Signed On 06-14-2021 17:01:27 CDT by Rina Akhtar M.D. [id number]
--- NOTE | 2021-06-13 08:43 | NMCV_ITS ---
NM darby perf SPECT r/s* [id number] Dai Ross Age: 75 Gender: F : 1945 Exam Date: 06/13/2021 09:01 Ordering Phys: Sammie Tovar Technologist: FLORY Hatfield Exam Location: [facility] Indications: SHORTNESS OF BREATH STRESS TEST Please see separate stress test report in [facility] for full findings IMAGE PROTOCOL Rest/Stress 1 Lexiscan Day Radiopharmaceutical Dose (mCi) Administration Site Administered by Rest: Tc-99m 11.0 IV FLORY Hatfield Sestamibi Stress:Tc-99m 32.3 IV Keli Coppola, FLORY Sestamibi Rest: 13-Jun-2021 60 Discovery 630 Stress: 13-Jun-2021 30 Discovery 630 0.4mg Lexiscan. Images obtained in supine and prone position. SPECT RESULTS Technical Quality: Excellent Raw Data Analysis: Normal Image Corrections: No attenuation or motion correction applied Summed Stress Score: 1 Summed Rest Score: 0 Summed Difference Score: 1 PERFUSION FINDINGS Very small size perfusion abnormality of mild severity of apical inferior wall on stress images. FUNCTIONAL RESULTS (calculated via Gated SPECT) Stress Image LV EF (%): 83 Stress EDV (mL):53 TID: 1.07 Stress ESV (mL):9 FUNCTIONAL FINDINGS: The left ventricle is normal in size. Transient Ischemia Dilatation of 1.1. There is normal left ventricular systolic function. The left ventricular ejection fraction is normal with a value of 83%. There is normal left ventricular wall thickening with no regional wall motion abnormality. IMPRESSIONS 1. Very small sized reversible perfusion abnormality of mild severity of apical inferior wall. 2. This may represent small area of ischemia in LAD/RCA artery territory. However attenuation artifact cannot be completely ruled out. 3. Overall left ventricular systolic function is normal without regional wall motion abnormalities. 4. The left ventricular ejection fraction is normal with a value of 83%. 5. Scan indicates low risk for cardiac events. Rina Akhtar MD (Electronically Signed) Final Date: 14 June 2021 17:22 S
[2021-06-13] MEDS: regadenoson 0.4 Mg/5 ml Syringe IVP (09:49)
[2021-06-13 09:50] VITALS: BP 143/61; PULSE 66
== END 2021-06-13 07:44 | disposition home or self-care (01) ==
PROVIDERS: PCP Nurse Practitioner Family; Visit Provider Nurse Practitioner Family
DX: R53.83 Other fatigue (principal); R06.02 Shortness of breath
CPT/HCPCS: 78452; 93017; A9500; J2785

== ENCOUNTER → 2021-10-09 13:33 | Outpatient (BNVA) | payer MEDICARE, SELFPAY | PROVIDERS: PCP Nurse Practitioner Family; Visit Provider Nurse Practitioner Family | DX: R05.9 Cough, unspecified (principal) | CPT/HCPCS: 87635 ==

== ENCOUNTER → 2021-11-16 11:01 | Outpatient (BNVA) | payer MEDICARE, SELFPAY | PROVIDERS: PCP Nurse Practitioner Family; Visit Provider Nurse Practitioner Family | DX: E55.9 Vitamin D deficiency, unspecified (principal); E78.2 Mixed hyperlipidemia; E03.9 Hypothyroidism, unspecified; I10 Essential (primary) hypertension; E11.9 Type 2 diabetes mellitus without complications | CPT/HCPCS: 80053; 80061; 81003; 82306; 83036; 84443; 85025 ==

== ENCOUNTER → 2022-01-31 10:21 | Outpatient (BNVA) | payer MEDICARE, SELFPAY | PROVIDERS: PCP Nurse Practitioner Family; Visit Provider Family Medicine | DX: Z11.59 Encounter for screening for other viral diseases (principal); Z13.820 Encounter for screening for osteoporosis; G95.0 Syringomyelia and syringobulbia; M48.00 Spinal stenosis, site unspecified; M54.9 Dorsalgia, unspecified | CPT/HCPCS: 80074 ==

== ENCOUNTER → 2022-04-17 09:14 | Outpatient (BNVA) | payer MEDICARE, SELFPAY | PROVIDERS: PCP Nurse Practitioner Family; Visit Provider Nurse Practitioner Family | DX: E03.9 Hypothyroidism, unspecified (principal); E11.59 Type 2 diabetes mellitus with other circulatory complications; U09.9 Post COVID-19 condition, unspecified; R53.83 Other fatigue | CPT/HCPCS: 80053; 83036; 84443; 85025 ==

== ENCOUNTER → 2022-05-09 10:05 | Outpatient (BNVA) | payer MEDICARE, SELFPAY | PROVIDERS: Visit Provider Nurse Practitioner | DX: R30.0 Dysuria (principal); R53.83 Other fatigue | CPT/HCPCS: 81000; 85651; 86038; 86140; 86431; 87086 ==

== ENCOUNTER → 2022-06-05 11:35 | Outpatient (BNVA) | payer MEDICARE, SELFPAY | PROVIDERS: Visit Provider Podiatrist Foot & Ankle Surgery | DX: B35.1 Tinea unguium (principal); M79.671 Pain in right foot; E78.2 Mixed hyperlipidemia; E11.8 Type 2 diabetes mellitus with unspecified complications; Z79.84 Long term (current) use of oral hypoglycemic drugs | CPT/HCPCS: 36415; 82977; 83615; 84450; 84460; 99204 ==

== ENCOUNTER 2022-12-27 09:18 | Outpatient (CLI) | payer MEDICARE, SELFPAY ==
--- NOTE | 2022-12-27 09:30 | MR_ITS ---
WS: [id number] MRI THORACIC SPINE WITHOUT CONTRAST TECHNIQUE: Sagittal T1, T2 and STIR imaging. Axial T2 imaging. Noncontrast imaging obtained. CLINICAL INFORMATION: G95.0 - Syringomyelia and syringobulbia COMPARISON: MRI April 28, 2020 FINDINGS: Moderate thoracic kyphosis. Mild thoracic curve. No acute compression. No high-grade central canal st enosis. Stable syrinx visualized in the thoracic cord. This originates in the cervical cord and exten ds to the T4 level. Short segment of normal cord with additional syrinx at the T5 level extending thr ough T6. Small amount of signal in the central cord extending through T11. Syrinx measures 4-5 mm in maximum dimension in the upper thoracic cord T1-T4. A few small disc protrusions are unchanged. LEFT pericentral protrusion T6-T7 and RIGHT pericentral p rotrusion at T8-T9 are unchanged. Moderate bony foraminal narrowing bilateral T8-T9, LEFT T9-T10, and LEFT T10-T11.Moderate facet arthr opathy lower thoracic spine. Large esophageal hiatal hernia. Intrathoracic stomach. Anterior wedging at T10 with mild loss vertebral body height anteriorly. This is new from previous bu t has a chronic appearance with endplate Schmorl's node. Mild disc osteophyte complexes T12-L2. Elyse l caliber thoracic aorta. Adrenal glands are normal. Lobulated lesion adjacent to the spleen and adre nal gland appears stable since 2011 and may represent a small splenule or a thrombosed splenic artery aneurysm. This measures approximately 15 mm. MR/MR thoracic spin wo con* [id number] IMPRESSION: 1. Stable thoracic cord syrinx most prominent in the upper thoracic cord measu ring 4-5 mm in maximum dimension at T1-T4 is unchanged. 2. Discontinuous syrinx at T4-T6 level with central signal abnormalities exten ding to T11 is unchanged. 3. Small disc protrusions at T6-T7 and T8-T9 are stable. 4. Anterior wedging with mild chronic compression at T10 vertebral body is new from previous but has a chronic appearance with endplate Schmorl's node. 5. No other significant changes. 6. Large esophageal hiatal hernia with intrathoracic stomach.
== END 2022-12-27 09:19 | disposition home or self-care (01) ==
PROVIDERS: Visit Provider Nurse Practitioner
DX: G95.0 Syringomyelia and syringobulbia (principal); R29.898 Other symptoms and signs involving the musculoskeletal system; M51.24 Other intervertebral disc displacement, thoracic region; M51.04 Intervertebral disc disorders with myelopathy, thoracic region
CPT/HCPCS: 72146; 80053; 80061; 85025

== ENCOUNTER → 2023-03-18 14:07 | Outpatient (BNVA) | payer MEDICARE, SELFPAY | PROVIDERS: PCP Nurse Practitioner; Visit Provider Nurse Practitioner | DX: E11.9 Type 2 diabetes mellitus without complications (principal); E03.9 Hypothyroidism, unspecified; N39.0 Urinary tract infection, site not specified | CPT/HCPCS: 81000; 83036; 84443; 85025 ==

== ENCOUNTER → 2023-04-01 16:27 | Outpatient (BNVA) | payer MEDICARE, SELFPAY | PROVIDERS: PCP Nurse Practitioner; Visit Provider Nurse Practitioner | DX: N39.0 Urinary tract infection, site not specified (principal) | CPT/HCPCS: 81000 ==

== ENCOUNTER → 2023-04-16 16:35 | Outpatient (BNVA) | payer MEDICARE, SELFPAY | PROVIDERS: PCP Nurse Practitioner; Visit Provider Nurse Practitioner Women's Health | DX: R32 Unspecified urinary incontinence (principal); N95.2 Postmenopausal atrophic vaginitis | CPT/HCPCS: 81000; 87086 ==

== ENCOUNTER → 2023-06-07 16:37 | Outpatient (BNVA) | payer MEDICARE, SELFPAY | PROVIDERS: PCP Nurse Practitioner; Visit Provider Nurse Practitioner | DX: R30.9 Painful micturition, unspecified (principal) | CPT/HCPCS: 81000 ==

== ENCOUNTER → 2023-07-08 13:34 | Outpatient (BNVA) | payer MEDICARE, SELFPAY | PROVIDERS: PCP Nurse Practitioner; Referring Provider Nurse Practitioner; Visit Provider Surgery | DX: K52.9 Noninfective gastroenteritis and colitis, unspecified (principal); R10.9 Unspecified abdominal pain | CPT/HCPCS: 99204 ==

== ENCOUNTER 2023-07-11 15:44 | Outpatient (CLI) | payer MEDICARE, SELFPAY | END 2023-07-11 15:45 | disposition home or self-care (01) | PROVIDERS: PCP Nurse Practitioner; Visit Provider Surgery | DX: K52.9 Noninfective gastroenteritis and colitis, unspecified (principal) | CPT/HCPCS: 82274 ==

== ENCOUNTER 2023-07-16 09:12 | Day surgery (SDC) | payer MEDICARE, SELFPAY ==
[2023-07-16 09:31] VITALS: BP 133/78; PULSE 70; RESP 17; TEMP 36.4; O2SAT 96
[2023-07-16 09:32] VITALS: BMI 24.0
[2023-07-16] MEDS: sodium chloride 0.9% 1,000 ML 30 ML IV (09:36)
--- NOTE | 2023-07-16 09:55 | W.PM.OPSUD ---
Surgery/Procedure H&P Update DATE OF PROCEDURE: July 16, 2023 DATE H&P PERFORMED: 07/08/23 H&P UPDATE INFORMATION: I have reviewed H&P completed within last 30 days, Changes to prior documentation as noted here, H&P to be scanned into chart and H&P is in [facility] [place] on date indicated PLANNED PROCEDURE: Operation Date: 07/16/23 10:35 Proposed Procedures p Colonoscopy g0121,Z12.11(Not Applicable) - Navarro Sepulveda MD
--- NOTE | 2023-07-16 09:59 | ANES.PREANE2 ---
Pre-Anesthetic Assessment Height/Weight: Height 1.63 m Weight 63.503 kg Temp Pulse Resp BP Pulse Ox O2 Del Method 97.6 F 70 17 133/78 96 Room Air 07/16/23 09:31 07/16/23 09:31 07/16/23 09:31 07/16/23 09:31 07/16/23 09:31 07/16/23 09:31 Preop Diagnosis: screening Operation Date: 07/16/23 10:35 Proposed Procedures p Colonoscopy [id number],Z12.11(Not Applicable) - Navarro Sepulveda MD Was Beta Mustapha taken within 24 hours: N/A Was Clonidine taken within 24 hours: N/A Last intake: Intake Last Liquid Date 07/15/23 Last Liquid Time 00:00 Last Solid Date 07/14/23 Last Solid Time 18:00 Social No alcohol and No tobacco Exam alert, oriented x 3, clear to auscultation bilaterally and regular rate & rhythm Airway Submandibular: within normal limits Cervical ROM: within normal limits Mallampati: Class II Dentition: chipped Pulmonary Sleep Apnea bronchitis havent had any issues in a while CV/HEM Coronary Artery Disease and Hypertension stents x2 18 years ago None reported Hepatic None reported GI None reported Metabolic Diabetes Mellitus (II), Hyperlipidemia and Thyroid Disease [facility] None reported Neuropsych Anxiety Anesthetic Plan ASA status: 3 Anesthesia: MAC Risk of > 500 ml blood loss (7ml/kg in children): No Medications/Allergies Home Medications Medication Instructions Recorded Confirmed Last Taken Type gabapentin 100 mg capsule 100 mg PO BID 03/31/21 07/16/23 07/15/23 History cpap #1 ea 04/17/21 07/08/23 Unknown Rx nitroglycerin 0.4 mg sublingual 0.4 mg sublingual Q5M PRN Chest 04/20/21 07/16/23 Unknown History tablet Pain blood sugar diagnostic #50 ea 04/17/22 07/08/23 Unknown Rx blood-glucose meter #1 ea 04/17/22 07/08/23 Unknown Rx pravastatin 80 mg tablet 80 mg PO DAILY #90 tabs 10/10/22 07/16/23 07/15/23 Rx buspirone 5 mg tablet 5 mg PO BID 07/12/23 07/16/23 07/15/23 History clopidogrel 75 mg tablet 75 mg PO DAILY 07/12/23 07/16/2307/12/23 History levothyroxine 25 mcg tablet 25 mcg PO DAILY 07/12/23 07/16/23 07/15/23 History metformin 500 mg tablet 500 mg PO DAILY 07/12/23 07/16/23 07/14/23 History valsartan 160 mg tablet 160 mg PO BID 07/12/23 07/16/23 07/15/23 History Allergies Allergy/AdvReac Type Severity Reaction Status Date / Time erythromycin base Allergy Mild RASH Verified 07/16/23 09:27 Penicillins Allergy Mild rash Verified 07/16/23 09:27 Current Medications Generic Name Dose Route Start Last Admin Trade Name Freq PRN Reason Stop Dose Admin Sodium Chloride 1,000 mls @ 30 mls/hr 07/16/23 09:30 07/16/23 09:36 Sodium Chloride 0.9% IV 30 mls/hr .Q24H PRAVIN Administration PFSH Anesthesia Medical History Acute bacterial sinusitis Acute carpal tunnel syndrome of left wrist Anemia Anxiety about health Anxiety and depression Arteriosclerotic heart disease Bronchitis CAD (coronary artery disease) Carpal tunnel syndrome Cervical disc disorder with myelopathy of mid-cervical region Chest pain Chronic sinusitis Diabetes mellitus, type II Essential hypertension Fatigue Hiatal hernia Hypothyroid Lower respiratory infection Mixed hyperlipidemia Patient has CAD and history of elevated lipids. She is taking medications as ordered. Oral herpes simplex infection Osteoarthritis cervical spine Otitis media Pharyngitis Sleep apnea Stenosis of cervical spine with myelopathy Symptoms of urinary tract infection Syrinx of spinal cord Tick bite Tick bite Vitamin D deficiency Patient has history of Vitamin D deficiency. Surgical History H/O heart artery stent Angioplasty with placement of 3 stents in the mid and left anterior descending. History of colonoscopy S/P hemorrhoidectomy S/P hysterectomy S/P tonsillectomy Family History Mother Diabetes Hypertension Father Hypertension Other Cancer H/O heart artery stent Social History Smoking and tobacco/nicotine status: never used tobacco/nicotine Alcohol intake: never Substance/Drug Use: never Household members: spouse Marital status: Current occupational status: retired Do you think of yourself as: Straight/Heterosexual Elizabeth/Uatsdin: Restorationist Data Anesthesia Cardiac Studies: Sestamibi Stress Test (Cardiology) 06/13/21
[2023-07-16 11:09] VITALS: BP 99/59; PULSE 56; RESP 12; TEMP 36.1; O2SAT 99
[2023-07-16 11:23] VITALS: BP 124/67; PULSE 55; RESP 16; O2SAT 98
--- NOTE | 2023-07-16 12:14 | ANE.PACU2 ---
Inpatient post-anesthesia follow up: Airway intact: Yes Vital signs: Temperature 97 F Pulse Rate 55 Respiratory Rate 16 Blood Pressure 124/67 Pulse Oximetry 98 Oxygen Delivery Me thod Room Air Oxygen Flow Rate Fraction of Inspir ed Oxygen Hydration adequate: Yes Nausea and vomiting: No Pain level: 1 Mental status: Baseline
== END 2023-07-16 11:40 | disposition home or self-care (01) ==
PROVIDERS: PCP Nurse Practitioner; Visit Provider Surgery
PROC: 0DJD8ZZ Inspection of Lower Intestinal Tract, Via Natural or Artificial Opening Endoscopic (ICD-10-PCS; CPT 45378; principal; 2023-07-16 10:35)
DX: Z12.11 Encounter for screening for malignant neoplasm of colon (principal); K64.8 Other hemorrhoids; K62.1 Rectal polyp; G47.30 Sleep apnea, unspecified; I25.10 Atherosclerotic heart disease of native coronary artery without angina pectoris; I10 Essential (primary) hypertension; Z95.5 Presence of coronary angioplasty implant and graft; E11.9 Type 2 diabetes mellitus without complications; E78.5 Hyperlipidemia, unspecified; Z79.84 Long term (current) use of oral hypoglycemic drugs; E78.2 Mixed hyperlipidemia
CPT/HCPCS: 45380; 88305; J2704; J7030

== ENCOUNTER 2023-07-22 07:58 | Outpatient (CLI) | payer MEDICARE, SELFPAY ==
--- NOTE | 2023-07-22 08:30 | US_ITS ---
WS: [id number] Complete ABDOMINAL ULTRASOUND HISTORY: abdominal pain COMPARISON: None available. Liver: 13.7 cm in length. Normal size with mild coarse echotexture. No mass or bile duct dilatation. Portal Vein: Normal hepatopetal flow with monophasic waveform. Gallbladder: Mildly contracted gallbladder. No stones or wall thickening. CBD: 0.3 cm Pancreas: Partially obscured. Right kidney: 9.8 cm x 3.9 x 4.4 cm. Cortex: 1.3 cm. Normal size and echogenicity. No hydronephrosis or mass. Left kidney: 9.1 cm x 3.5 cm x 3.8 cm. Cortex: 1.2 cm. Normal size and echogenicity. No hydronephrosis or mass. Spleen: 10.2 cm in length. Normal. Aorta and IVC: Unremarkable abdominal aorta and IVC. Impression: 1. Negative gallbladder. 2. No renal obstruction. 3. No abnormality identified.
== END 2023-07-22 07:59 | disposition home or self-care (01) ==
LOC: RAD 08:04
PROVIDERS: PCP Nurse Practitioner; Visit Provider Surgery
DX: R10.9 Unspecified abdominal pain (principal)
CPT/HCPCS: 76700

== ENCOUNTER → 2023-07-30 10:48 | Outpatient (BNVA) | payer MEDICARE, SELFPAY | PROVIDERS: PCP Nurse Practitioner; Visit Provider Surgery | DX: Z09 Encounter for follow-up examination after completed treatment for conditions other than malignant neoplasm (principal) | CPT/HCPCS: 99213 ==

== ENCOUNTER → 2023-09-24 14:42 | Outpatient (BNVA) | payer MEDICARE, SELFPAY | PROVIDERS: PCP Nurse Practitioner Family; Visit Provider Nurse Practitioner Family | DX: J06.9 Acute upper respiratory infection, unspecified (principal); J22 Unspecified acute lower respiratory infection; R39.89 Other symptoms and signs involving the genitourinary system; R31.9 Hematuria, unspecified | CPT/HCPCS: 81003; 87086 ==

== ENCOUNTER → 2023-09-27 13:28 | Outpatient (BNVA) | payer MEDICARE, SELFPAY | PROVIDERS: PCP Nurse Practitioner Family; Visit Provider Nurse Practitioner Family | DX: R06.2 Wheezing (principal); H10.10 Acute atopic conjunctivitis, unspecified eye; J22 Unspecified acute lower respiratory infection; K44.9 Diaphragmatic hernia without obstruction or gangrene | CPT/HCPCS: 71046 ==

== ENCOUNTER → 2023-10-15 12:51 | Outpatient (BNVA) | payer MEDICARE, SELFPAY | PROVIDERS: PCP Nurse Practitioner Family; Visit Provider Podiatrist Foot & Ankle Surgery | DX: E11.59 Type 2 diabetes mellitus with other circulatory complications (principal); B35.3 Tinea pedis; B35.1 Tinea unguium; M79.671 Pain in right foot; Z79.84 Long term (current) use of oral hypoglycemic drugs | CPT/HCPCS: 36415; 83036; 99213 ==

== ENCOUNTER → 2023-10-22 12:24 | Outpatient (BNVA) | payer MEDICARE, SELFPAY | PROVIDERS: PCP Nurse Practitioner Family; Visit Provider Podiatrist Foot & Ankle Surgery | DX: B35.1 Tinea unguium (principal); L60.0 Ingrowing nail | CPT/HCPCS: 11750; A6219 ==

== ENCOUNTER → 2023-11-05 11:08 | Outpatient (BNVA) | payer MEDICARE, SELFPAY | PROVIDERS: PCP Nurse Practitioner Family; Visit Provider Podiatrist Foot & Ankle Surgery | DX: B35.1 Tinea unguium (principal) | CPT/HCPCS: 99213 ==

== ENCOUNTER → 2023-12-17 08:41 | Outpatient (BNVA) | payer MEDICARE, SELFPAY | PROVIDERS: PCP Nurse Practitioner Family; Visit Provider Nurse Practitioner Family | DX: R53.83 Other fatigue (principal); E55.9 Vitamin D deficiency, unspecified; E78.2 Mixed hyperlipidemia; E03.9 Hypothyroidism, unspecified; I10 Essential (primary) hypertension; E11.59 Type 2 diabetes mellitus with other circulatory complications; E11.9 Type 2 diabetes mellitus without complications | CPT/HCPCS: 80053; 80061; 81003; 82306; 83036; 84443; 85025 ==

== ENCOUNTER 2023-12-30 06:00 | Outpatient (RCR) | payer MEDICARE, SELFPAY | END 2024-01-07 23:59 | disposition home or self-care (01) | LOC: WPT 06:00 | PROVIDERS: PCP Nurse Practitioner Family; Visit Provider Nurse Practitioner Family | DX: S22.000D Wedge compression fracture of unspecified thoracic vertebra, subsequent encounter for fracture with routine healing (principal); X58.XXXD Exposure to other specified factors, subsequent encounter | CPT/HCPCS: 97161 ==

== ENCOUNTER 2024-02-12 13:34 | Outpatient (CLI) | payer MEDICARE, SELFPAY ==
--- NOTE | 2024-02-12 14:00 | XR_ITS ---
WS: [id number] DEXA (DUAL ENERGY X-RAY ABSORPTIOMETRY) Bone mineral density was performed using a Unight machine. HISTORY: Z13.820 - Encounter for screening for osteoporosis COMPARISON: None available. Lumbar spine BMD (L1-L4): 1.443 g/cm2 T score: 2.2 Z score: 4.1 Total hip BMD: Left: 0.805 g/cm2. T score: -1.6 Z score: 0.3 Right: 0.766 g/cm2. T score: -1.9 Z score: 0.0 10 year probability of a major osteoporotic fracture is XR/XR DEXA axial skeleton* 58035 IMPRESSION: OSTEOPENIA based upon the WHO classification for females.
== END 2024-02-12 13:35 | disposition home or self-care (01) ==
LOC: RAD 13:34
PROVIDERS: PCP Nurse Practitioner Family; Visit Provider Nurse Practitioner Family
DX: Z13.820 Encounter for screening for osteoporosis (principal); M85.80 Other specified disorders of bone density and structure, unspecified site; Z78.0 Asymptomatic menopausal state
CPT/HCPCS: 77080

== ENCOUNTER → 2024-03-11 10:05 | Outpatient (BNVA) | payer MEDICARE, SELFPAY | PROVIDERS: PCP Nurse Practitioner Family; Visit Provider Nurse Practitioner Family | DX: Z86.11 Personal history of tuberculosis (principal) | CPT/HCPCS: 71046 ==

== ENCOUNTER 2024-04-06 15:17 | Outpatient (CLI) | payer MEDICARE, SELFPAY ==
--- NOTE | 2024-04-06 15:30 | CT_ITS ---
WS: [id number] CT ABDOMEN AND PELVIS WITH CONTRAST HISTORY: R10.2 - Pelvic and perineal pain TECHNIQUE: Imaging performed of the abdomen and pelvis with IV contrast. Single phase imaging of the abdomen. Coronal and sagittal reformats are submitted. All CT scans at [facility] use at [address] one of these dose optimization techniques: automated exposure control; mA and/or kV adjustment per patient size (includes targeted exams where dose is matched to clinical indication); or iterative re construction. IV CONTRAST: Omnipaque 350; 100 mL IV. Oral contrast: Yes. DLP: 345.23 mGy.cm COMPARISON: 02/03/2021 Lower thorax: Lung bases are slightly hyperinflated. No mass or nodule. Heart is normal size. Very la rge hiatal hernia. The stomach is nearly completely intrathoracic. There is oral contrast retained wi thin the intrathoracic portion of the stomach. Does not appear to be an obstruction through the GE ju nction. Hiatal hernia has increased since the prior exam. Liver/biliary system: Normal size with no intrahepatic dilatation. Gallbladder: Gallbladder normally distended. There is slight increased attenuation towards the neck o f the gallbladder which could potentially be a stone. This is really only seen on the axial imaging. No adjacent inflammatory changes. No bile duct dilatation. Pancreas: Normal size pancreas. Pancreatic duct through the pancreatic head is very minimally promine nt but similar to 02/03/2021. No mass is identified. The common bile duct is normal. No pancreatic atr ophy. Spleen: Normal size spleen. No mass or infarct. Adrenal glands: Normal. Right kidney: Normal size kidney. Too small to characterize hypodensity lower pole. Extrarenal pelvis . Left kidney: Normal. Aorta: Mild atherosclerosis with no aneurysm. Lymphadenopathy: None. Free fluid: None. GI tract: No small bowel obstruction. Mild constipation and fecal retention. The appendix is not iden tified but there are no secondary findings of appendicitis. Minimal diverticular disease. Mild wall t hickening at the sigmoid may be due to under distention. There is no pericolonic stranding. Abdominal wall: Unremarkable abdominal wall. No hernia. Pelvis: Prior hysterectomy. No pelvic mass identified. There is no free fluid. There is some very mil d increased vascularity through the vagina which has progressed since 02/03/2021 of uncertain signific ance. This can be evaluated by pelvic examination. Bones: Advanced degenerative changes and scoliosis in the lumbar spine. 10% anterior wedging of T10 i s new since 02/03/2021. Progression of degenerative scoliosis. CT/CT abdomen pelvis w con* [id number] IMPRESSION: 1. No acute abdominal or pelvic abnormalities are identified. 2. Large hiatal hernia. The stomach is nearly completely intrathoracic. 3. No GI tract obstruction. 4. Mild atherosclerosis aorta. 5. Mild hyperemia of the vagina cuff. This can be further evaluated by pelvic exam. 6. There is no ascites or adenopathy. 7. Age-indeterminate T10 10% compression fracture. New since 02/03/2021.
[2024-04-06 16:00] LABS: Blood Urea Nitrogen 22 mg/dL (8-23)
[2024-04-06] MEDS: iohexol 350 mg/mL 500 mL Btl (per mL) PO (16:21)
[2024-04-06] MEDS: iohexol 350 mg/mL 500 mL Btl (per mL) IV (16:41)
== END 2024-04-06 15:18 | disposition home or self-care (01) ==
LOC: RAD 15:17
PROVIDERS: PCP Nurse Practitioner Family; Visit Provider Nurse Practitioner Family
DX: K44.9 Diaphragmatic hernia without obstruction or gangrene (principal); R19.8 Other specified symptoms and signs involving the digestive system and abdomen; K31.0 Acute dilatation of stomach; K59.09 Other constipation; Z90.710 Acquired absence of both cervix and uterus; N76.89 Other specified inflammation of vagina and vulva; M41.56 Other secondary scoliosis, lumbar region; M48.54XA Collapsed vertebra, not elsewhere classified, thoracic region, initial encounter for fracture
CPT/HCPCS: 74177; 82565; 84520; Q9967

== ENCOUNTER → 2024-05-25 15:53 | Outpatient (BNVA) | payer MEDICARE, SELFPAY | PROVIDERS: PCP Nurse Practitioner Family; Visit Provider Nurse Practitioner Family | DX: R30.0 Dysuria (principal) | CPT/HCPCS: 81003; 87086 ==

== ENCOUNTER → 2024-10-22 08:44 | Outpatient (BNVA) | payer MEDICARE, SELFPAY | PROVIDERS: PCP Nurse Practitioner Family; Visit Provider Student in an Organized Health Care Education/Training Program | DX: K46.9 Unspecified abdominal hernia without obstruction or gangrene (principal); R03.0 Elevated blood-pressure reading, without diagnosis of hypertension; R12 Heartburn | CPT/HCPCS: 99204 ==

== ENCOUNTER 2024-11-03 08:09 | Day surgery (SDC) | payer MEDICARE, SELFPAY ==
--- NOTE | 2024-11-03 08:30 | ECG_ITS ---
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
[2024-11-03 08:33] VITALS: BP 158/73; PULSE 61; RESP 17; TEMP 36.2; O2SAT 98; BMI 23.6
--- NOTE | 2024-11-03 08:45 | W.PM.OPSUD ---
Surgery/Procedure H&P Update DATE OF PROCEDURE: November 03, 2024 DATE H&P PERFORMED: 10/22/24 H&P UPDATE INFORMATION: I have reviewed H&P completed within last 30 days, I have examined patient prior to procedure and No changes to prior documentation PLANNED PROCEDURE: Operation Date: 11/03/24 09:30 Proposed Procedures p EGD [id number], R12(Not Applicable) - Felipe Escobedo MD
--- NOTE | 2024-11-03 08:52 | P.ANESASSM_ITS ---
Pre-Anesthetic Assessment Height/Weight: Height 1.63 m Weight 62.596 kg Temp Pulse Resp BP Pulse Ox O2 Del Method 97.1 F L 61 17 158/73 98 Room Air 11/03/24 08:33 11/03/24 08:33 11/03/24 08:33 11/03/24 08:33 11/03/24 08:33 11/03/24 08:33 Operation Date: 11/03/24 09:30 Proposed Procedures p EGD [id number], R12(Not Applicable) - Felipe Escobedo MD Familial anesthetic complications: none Was Clonidine taken within 24 hours: N/A Last intake: Intake Last Liquid Date 11/02/24 Last Liquid Time 20:00 Last Solid Date 11/02/24 Last Solid Time 20:00 Exam alert, oriented x 3, clear to auscultation bilaterally and regular rate & rhythm Airway Mallampati: Class II Dentition: chipped Comments: Comments: Pt. states teeth break easily. Pulmonary Sleep Apnea Pt. unable to tolerate CPAP CV/HEM Coronary Artery Disease, Hypertension and Myocardial Infarction (Cardiac stents in 19 yrs ago. Denies CP/SOB w/exertion. ) None reported Hepatic None reported GI Hernia Metabolic Diabetes Mellitus and Thyroid Disease (Hypothyroid) [facility] Osteoarthritis/DJD Neuropsych Anxiety and Depression Anesthetic Plan ASA status: 3 Anesthesia: MAC Risk of > 500 ml blood loss (7ml/kg in children): No Medications/Allergies Home Medications ?Medication ?Instructions ?Recorded ?Confirmed ?Last Taken ?Type blood sugar diagnostic #50 ea 04/17/22 10/22/24 Unk nown Rx blood-glucose meter #1 ea 04/17/22 10/22/24 Unkn own Rx inhalational spacing device (Chava #1 ea 10/04/23 Unknown Rx Aerosol [place] Enhancer spacer) blood sugar diagnostic #50 ea 10/18/23 10/22/24 Unk nown Rx pravastatin 80 mg tablet 80 mg PO DAILY #90 tabs 04/0 06/0211/03/24 11/02/24 Rx estradiol 0.01% (0.1 mg/gram) 1 appful vaginal DAILY # 42.5 grams 05/20/24 11/03/24 2 Weeks Ago Rx vaginal cream (Estrace) ~10/20/24 valacyclovir 1 gram tablet 1,000 mg PO DAILY PRN fever 09/10/24 11/03/24 Unknown Rx blister 30 days #30 tabs clopidogrel 75 mg tablet 75 mg PO DAILY 11/02/2410/1110/28/24 History levocetirizine 5 mg tablet 5 mg PO DAILY PRN Allergy S ymptoms 11/02/24 11/03/24 11/02/24 History levothyroxine 25 mcg tablet 25 mcg PO DAILY 11/02/24 0 11/03/24 11/02/24 History metformin 500 mg tablet 500 mg PO DAILY 11/02/2411/01/24 History valsartan 160 mg tablet 160 mg PO DAILY 11/02/2411/02/24 History Allergies Allergy/AdvReac Type Severity Reaction Status Date / Time erythromycin base Allergy Mild RASH Verified 10/22/24 08:45 Penicillins Allergy Mild rash Verified 10/22/24 08:45 [facility] Anesthesia Medical History (Updated 10/22/24 @ 09:43 by Felipe Escobedo MD) Enrolled in chronic care management Influenza vaccine needed Pharyngitis Chest pressure Recurrent cold sores Nasal sore Large hiatal hernia Hyperemia Pelvic pain History of treatment for tuberculosis Post-menopausal Weakness Palpitations Generalized weakness Chronic back pain Compression fracture of thoracic vertebra Deformity of toenail Allergic conjunctivitis Wheezing Lower respiratory infection Upper respiratory infection Sensation of pressure in bladder area Acute bacterial sinusitis Anxiety about health Sleep apnea Tick bite Tick bite Otitis media Bronchitis Oral herpes simplex infection Chronic sinusitis Symptoms of urinary tract infection Syrinx of spinal cord Chest pain CAD (coronary artery disease) Osteoarthritis cervical spine 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 Diabetes mellitus, type II Mixed hyperlipidemia Patient has CAD and history of elevated lipids. She is taking medications as ordered. Arteriosclerotic heart disease Hypothyroid Hiatal hernia Essential hypertension Anxiety and depression (~04/10/24) Surgical History (Updated 10/22/24 @ 08:50 by ANGELES Champagne) History of cataract surgery Status post cataract surgery History of colonoscopy S/P tonsillectomy S/P hysterectomy S/P hemorrhoidectomy H/O heart artery stent Angioplasty with placement of 3 stents in the mid and left anterior descending. Family History Mother Diabetes Hypertension Father Hypertension Other Cancer H/O heart artery stent Social History Smoking and tobacco/nicotine status: former use of tobacco/nicotine Data Anesthesia 11/03/24 08:30 11/03/24 08:30 Cardiac Studies: 2 Sestamibi Stress Test (Cardiology) 06/13
[2024-11-03 08:55] LABS: Basophils # 0.1 10^3/uL (0.0-0.1); Basophils % 0.7 %; Eosinophils # 0.4 10^3/uL (0.0-0.8); Eosinophils % 4.3 %; Hematocrit 44.2 % (36-47); Lymphocytes % 23.2 %; Mean Corpuscular HGB Conc 33.3 g/dL (30-55); Mean Corpuscular Hemoglobin 30.5 pg (27-33); Mean Corpuscular Volume 91.7 fl (85-98); Mean Platelet Volume 10.4 fL (7.4-10.4); Monocytes # 0.8 10^3/uL (0.2-0.9); Monocytes % 9.8 %; Neutrophils % 61.7 %; Nucleated Red Blood Cells % 0 %; Platelet Count 198 10^3/cmm (157-399); Red Blood Count 4.82 10^6/uL (3.85-5.65); Red Cell Distribution Width 13.5 % (12.1-15.1); White Blood Count 8.59 10^3/uL (3.29-11.43)
[2024-11-03 10:02] LABS: Blood Urea Nitrogen 25 mg/dL (8-23); Calcium 9.4 mg/dL (8.5-10.5); Carbon Dioxide 24 mmol/L (22-29); Chloride 105 mmol/L (98-107); Creatinine Clr Calc Pharmacy 53.7902; Glucose 123 mg/dL (65-115); Osmolality Calculated 294 mOsm/kg (285-295); Sodium 139 mmol/L (136-145)
[2024-11-03 10:05] LABS: Anion Gap 14.6 (5-19); Potassium 4.6 mmol/L (3.5-5.1)
[2024-11-03 10:46] VITALS: BP 150/77; PULSE 70; RESP 16; TEMP 36.2; O2SAT 100
[2024-11-03 11:15] VITALS: BP 124/59; PULSE 65; RESP 16; O2SAT 99
== END 2024-11-03 11:21 | disposition home or self-care (01) ==
PROVIDERS: Anesthesiology; PCP Nurse Practitioner Family; Visit Provider Student in an Organized Health Care Education/Training Program
PROC: 0DJ08ZZ Inspection of Upper Intestinal Tract, Via Natural or Artificial Opening Endoscopic (ICD-10-PCS; principal; 2024-11-03 09:30)
DX: K29.50 Unspecified chronic gastritis without bleeding (principal); K44.9 Diaphragmatic hernia without obstruction or gangrene; G47.30 Sleep apnea, unspecified; I25.10 Atherosclerotic heart disease of native coronary artery without angina pectoris; I10 Essential (primary) hypertension; R12 Heartburn; Z95.5 Presence of coronary angioplasty implant and graft; I25.2 Old myocardial infarction; E11.9 Type 2 diabetes mellitus without complications; E03.9 Hypothyroidism, unspecified; E78.2 Mixed hyperlipidemia; F41.9 Anxiety disorder, unspecified; F32.A Depression, unspecified; Z79.899 Other long term (current) drug therapy; Z79.84 Long term (current) use of oral hypoglycemic drugs; Z88.0 Allergy status to penicillin; Z88.1 Allergy status to other antibiotic agents; Z79.890 Hormone replacement therapy; Z87.891 Personal history of nicotine dependence
CPT/HCPCS: 36415; 43239; 80048; 85025; 88305; 93005; J2704

== ENCOUNTER → 2024-11-16 11:19 | Outpatient (BNVA) | payer MEDICARE, SELFPAY | PROVIDERS: PCP Nurse Practitioner Family; Visit Provider Student in an Organized Health Care Education/Training Program | DX: Z09 Encounter for follow-up examination after completed treatment for conditions other than malignant neoplasm (principal) | CPT/HCPCS: 99213 ==

== ENCOUNTER → 2024-11-26 08:11 | Outpatient (BNVA) | payer MEDICARE, SELFPAY | PROVIDERS: PCP Nurse Practitioner Family; Visit Provider Nurse Practitioner Family | DX: D64.9 Anemia, unspecified (principal); F41.9 Anxiety disorder, unspecified; F32.9 Major depressive disorder, single episode, unspecified; I10 Essential (primary) hypertension; I25.10 Atherosclerotic heart disease of native coronary artery without angina pectoris; E78.2 Mixed hyperlipidemia; E11.59 Type 2 diabetes mellitus with other circulatory complications; E03.9 Hypothyroidism, unspecified; E55.9 Vitamin D deficiency, unspecified; Z78.0 Asymptomatic menopausal state; M85.80 Other specified disorders of bone density and structure, unspecified site | CPT/HCPCS: 80053; 80061; 81003; 82306; 82728; 83036; 83550; 84443; 85025; 87086 ==

== ENCOUNTER → 2024-12-01 11:52 | Outpatient (BNVA) | payer MEDICARE, SELFPAY | PROVIDERS: PCP Nurse Practitioner Family; Visit Provider Nurse Practitioner Family | DX: D64.9 Anemia, unspecified (principal); F32.9 Major depressive disorder, single episode, unspecified; F41.9 Anxiety disorder, unspecified; E55.9 Vitamin D deficiency, unspecified; Z78.0 Asymptomatic menopausal state; M85.80 Other specified disorders of bone density and structure, unspecified site | CPT/HCPCS: 82306; 83550; 84443 ==

== ENCOUNTER → 2024-12-02 10:05 | Outpatient (BNVA) | payer MEDICARE, SELFPAY | PROVIDERS: PCP Nurse Practitioner Family; Visit Provider Internal Medicine Cardiovascular Disease | DX: I25.118 Atherosclerotic heart disease of native coronary artery with other forms of angina pectoris (principal); I10 Essential (primary) hypertension; E78.2 Mixed hyperlipidemia; E11.59 Type 2 diabetes mellitus with other circulatory complications; F41.9 Anxiety disorder, unspecified; F32.9 Major depressive disorder, single episode, unspecified; R53.83 Other fatigue; Z87.891 Personal history of nicotine dependence; Z79.84 Long term (current) use of oral hypoglycemic drugs | CPT/HCPCS: 99214 ==

== ENCOUNTER 2025-01-15 08:28 | Outpatient (CLI) | payer MEDICARE, SELFPAY ==
[2025-01-15 08:33] VITALS: BMI 23.5
--- NOTE | 2025-01-15 08:33 | ECG_ITS ---
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 Interpretive Statements Lung unchanged pre/post procedure; Intraprocedure shortess of breath; Symptoms resoled by discharge PROCEDURE: At the baseline, the EKG revealed normal sinus rhythm with a diffuse nonspecific T wave changes.. The baseline heart was 64 bpm with a blood pressue of 154/85 mm of Hg Lexiscan was infused over a period of 20 seconds. A total of 0.4 milligrams of Lexiscan was infused. The stress phase was continued for a total of 5 minutes. Heart rate at the end of the stress phase was 75 bpm with a blood pressure 147/69 mm of Hg. The EKG at the peak infusion revealed no significant changes. Sestamibi was injected 20 seconds after the Lexiscan infusion. Heart rate at the end of the recovery phase was 69 bpm with a blood pressure of 153/65 mm of Hg. CONCLUSION: 1. No significant EKG changes with the LexiScan infusion 2. No LexiScan induced chest pain or cardiac arrhythmia 3. Normal blood pressure and heart rate response 4. Sestamibi/sestamibi perfusion scan pending; see separate report. Electronically Signed On 01-18-2025 11:30:43 CDT by Rambo Pete M.D. [email or web address] [id number]
--- NOTE | 2025-01-15 08:34 | NMCV_ITS ---
NM darby perf SPECT r/s* [id number] Dai Ross Age: 79 Gender: F : 1945 Exam Date: 01/15/2025 09:54 Ordering Phys: Rambo Pete MD ([email or web address]) Technologist: FLORY Mueller Exam Location: [facility] Indications: cp STRESS TEST [facility] IMAGE PROTOCOL Rest/Stress 1 Lexiscan Day Radiopharmaceutical Dose (mCi) Administration Site Administered by Rest: Tc-99m 11 IV eVro Maldonado SURGICAL PATHOLOGIST Sestamibi Stress:Tc-99m 32.8 IV Vero Maldonado SURGICAL PATHOLOGIST Sestamibi Rest: 15-Jan-2025 60 Discovery 630 Stress: 15-Jan-2025 30 Discovery 630 0.4mg Lexiscan. Supine position only as patient was unable to lay prone. SPECT RESULTS Technical Quality: Good Raw Data Analysis: Normal Image Corrections: No attenuation or motion correction applied Summed Stress Score: 6 Summed Rest Score: 2 Summed Difference Score: 4 PERFUSION FINDINGS Moderate area of moderately decreased tracer uptake involving the apical inferior, apical septal and LV apex with significant reversibility FUNCTIONAL RESULTS (calculated via Gated SPECT) Stress Image LV EF (%): 88 Stress EDV (mL):42 TID: 0.91 Stress ESV (mL):5 FUNCTIONAL FINDINGS: Segmental wall motion analysis revealing no gross wall motion abnormalities IMPRESSIONS 1. Myocardial perfusion imaging revealing moderate area of reversible defect involving the apical inferior, apical septal and LV apex suggesting myocardial scarring with ischemia in distribution of the distal LAD/right coronary artery. 2. Normal LV ejection fraction of 88% 3. LV wall motion analysis revealing no gross wall motion abnormalities. 4. Normal LV volume. Compared to the study from 06/13/2021, the ischemic burden appears to be more Dr Rambo Pete MD [facility] (Electronically Signed) Final Date: 15 Jan 2025 23:50 S
[2025-01-15] MEDS: regadenoson 0.4 Mg/5 ml Syringe IVP (10:18)
[2025-01-15 10:31] VITALS: BP 153/65; PULSE 69
--- NOTE | 2025-01-15 13:30 | USCV_ITS ---
Dai Ross Age: 79 Gender: F : 1945 Exam Date: 01/15/2025 09:04 Ordering Phys: Rambo Pete MD ([email or web address]) Technologist: Exam Location: [facility] Indication: cp sob BP: 125 / 70 HR: 800 Rhythm: Sinus Technical Quality: MEASUREMENTS (Male / Female) Normal Values 2D ECHO LV Diastolic Diameter PLAX 3.3 cm 4.2 - 5.9 / 3.9 - 5.3 cm IVS Diastolic Thickness 1.4 cm 0.6 - 1.0 / 0.6 - 0.9 cm IVS Systolic Thickness 1.4 cm LVPW Diastolic Thickness 1.1 cm 0.6 - 1.0 / 0.6 - 0.9 cm LVPW Systolic Thickness 1.7 cm LVOT Diameter 2.0 cm LV Ejection Fraction 2D Teich 61.9 % LV Ejection Fraction MOD 4C 66.6 % LV Ejection Fraction MOD 2C 78.1 % LV Ejection Fraction 2C AL 77.9 % LA Diameter 2.8 cm RA Systolic Volume 4C AL 14.9 ml RA Systolic Volume 4C MOD 14.3 ml LA Sys Volume AL 32.1 cm cubed LA Sys Volume Index AL 19.0 cm cubed/m squared Aorta at Sinotubular Diameter 2.3 cm IVC Diameter 1.3 cm M-MODE LA Ao Ratio MM 1.0 AV Cusp Separation MM 1.7 cm DOPPLER AV Peak Velocity 101.7 cm/s LVOT Peak Velocity 92.0 cm/s AV Area Cont Eq vti 4.6 cm squared AV Area Cont Eq pk 2.8 cm squared MV Peak Velocity 107.0 cm/s MV Area PHT 3.8 cm squared Mitral E to A Ratio 0.9 TV Peak Velocity 200.5 cm/s TR Peak Velocity 277.0 cm/s TR Peak Gradient 30.7 mmHg TV Peak E Velocity 63.0 cm/s PV Peak Velocity 101.0 cm/s FINDINGS Left Ventricle Normal left ventricular size and systolic function, EF 78%. Mild left ventricular hypertrophy. No regional wall motion abnormalities. Grade I/IV diastolic dysfunction (abnormal relaxation filling pattern), normal to mildly elevated filling pressures. Right Ventricle The right ventricle is normal in size and function. Right Atrium The right atrium is normal in size. Left Atrium Mildly increased left atrial size. Mitral Valve Structurally normal mitral valve. Aortic Valve Mild aortic valve regurgitation. Tricuspid Valve No gross abnormalities noted Pulmonic Valve Trace pulmonary valve regurgitation. Pericardium Normal pericardium without effusion. Aorta Normal ascending aorta dimension. IVC Normal inferior vena cava. CONCLUSIONS Normal left ventricular size and systolic function, EF 78%. Mild left ventricular hypertrophy. No regional wall motion abnormalities. Grade I/IV diastolic dysfunction (abnormal relaxation filling pattern), normal to mildly elevated filling pressures. Mildly increased left atrial size. Mild aortic valve regurgitation. Trace pulmonary valve regurgitation. There is no pericardial effusion. There are no intracardiac masses. Compared to the study from 06/02/2019, there is no significant change Dr Rambo Pete MD [facility] (Electronically Signed) Final Date: 18 Jan 2025 09:53 S
== END 2025-01-15 08:29 | disposition home or self-care (01) ==
LOC: CDL 08:29
PROVIDERS: PCP Nurse Practitioner Family; Visit Provider Internal Medicine Cardiovascular Disease
DX: R07.9 Chest pain, unspecified (principal); R06.09 Other forms of dyspnea; I25.118 Atherosclerotic heart disease of native coronary artery with other forms of angina pectoris; I51.7 Cardiomegaly; R93.1 Abnormal findings on diagnostic imaging of heart and coronary circulation; I35.1 Nonrheumatic aortic (valve) insufficiency
CPT/HCPCS: 36415; 78452; 93017; 93306; 96374; A9500; J2785

== ENCOUNTER → 2025-04-05 08:14 | Outpatient (BNVA) | payer MEDICARE, SELFPAY | PROVIDERS: PCP Nurse Practitioner Family; Visit Provider Nurse Practitioner Family | DX: E11.59 Type 2 diabetes mellitus with other circulatory complications (principal); I10 Essential (primary) hypertension; E78.2 Mixed hyperlipidemia; E03.9 Hypothyroidism, unspecified; E55.9 Vitamin D deficiency, unspecified; R53.83 Other fatigue; D64.9 Anemia, unspecified; Z78.0 Asymptomatic menopausal state; M85.80 Other specified disorders of bone density and structure, unspecified site; I25.118 Atherosclerotic heart disease of native coronary artery with other forms of angina pectoris | CPT/HCPCS: 80053; 80061; 81003; 82306; 82607; 82728; 82746; 83036; 83550; 83735; 84100; 84443; 85025; 87086 ==

== ENCOUNTER → 2025-04-13 11:43 | Outpatient (BNVA) | payer MEDICARE, SELFPAY | PROVIDERS: PCP Nurse Practitioner Family; Visit Provider Nurse Practitioner Family | DX: R39.9 Unspecified symptoms and signs involving the genitourinary system (principal) | CPT/HCPCS: 81003 ==

== ENCOUNTER → 2025-04-23 11:19 | Outpatient (BNVA) | payer MEDICARE, SELFPAY | PROVIDERS: PCP Nurse Practitioner Family; Referring Provider Nurse Practitioner Family; Visit Provider Internal Medicine | DX: E11.59 Type 2 diabetes mellitus with other circulatory complications (principal); E03.9 Hypothyroidism, unspecified; E55.9 Vitamin D deficiency, unspecified | CPT/HCPCS: 99204 ==

== ENCOUNTER → 2025-07-15 13:55 | Outpatient (BNVA) | payer MEDICARE, SELFPAY | PROVIDERS: PCP Nurse Practitioner Family; Visit Provider Internal Medicine Cardiovascular Disease | DX: I10 Essential (primary) hypertension (principal); R94.39 Abnormal result of other cardiovascular function study; R58 Hemorrhage, not elsewhere classified | CPT/HCPCS: 36415; 80048; 85025; 85610 ==

== ENCOUNTER 2025-07-20 13:09 | Observation (INO) | payer MEDICARE, SELFPAY ==
[2025-07-20] VITALS (9 sets, daily range): BP systolic 99–180; BP diastolic 65–85; PULSE 56–72; RESP 17–19; TEMP 36.4–36.7; O2SAT 95–100; BMI 24.3; BMI 24.5
--- NOTE | 2025-07-20 13:10 | XRR_ITS ---
PROCEDURE INFORMATION: Exam: XR Chest Exam date and time: 07/20/2025 01:21 PM Age: 80 years old Clinical indication: Pain; Angina pectoris; Additional info: Chest pain TECHNIQUE: Imaging protocol: Radiologic exam of the chest. Views: 1 view. COMPARISON: CR XR chest 2V* [id number] 03/11/2024 11:01 AM FINDINGS: Lungs: Low lung volumes. Pleural spaces: Unremarkable. No pleural effusion. No pneumothorax. Heart/Mediastinum: Large hiatal hernia with air-fluid level. Vasculature: Atherosclerotic vascular disease. Bones/joints: Osteopenia. Degenerative changes of the spine. XR/XR chest 1V portable [id number] IMPRESSION: 1. Large hiatal hernia with air-fluid level. 2. No airspace disease.
--- NOTE | 2025-07-20 13:10 | ECG_ITS ---
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 Measurements Intervals [place] Rate: 61 P: 33 KS: 163 QRS: 31 QRSD: 90 T: 66 QT: 385 QTc: 388 Interpretive Statements SINUS RHYTHM Compared to ECG 11/03/2024 09:00:48 Sinus bradycardia no longer present Electronically Signed On 07-21-2025 20:20:50 SPEECH AND HEARING CLINIC DIRECTOR by oLn Woodard M.D. [id number]
--- OUTSIDE RECORDS SUMMARY | 2025-07-20 13:16 | XMS_ITS | Encounter Summary ---
Author Organization [facility] Address [address] [place] [address] Care Team Providers Care Boiler House Operator Name Role Phone Be Frye SERVICE SHOP FOREMAN Primary Care Provider [phone] Encounter Details Date Type Department Care Team (Late st Contact Info) Description 09/11/2023 Telephone [facility] Neurology [address] [place] [id number] Terrance Pal MD [address] [place] [address] Social History Tobacco Use Types Packs/Day Years Used Date Smoking Tobacco: Never Smokeless Tobacco: Never Alcohol Use Standard Drinks/Week Comments No 0 (1 standard drink = 0.6 oz pur e alcohol) Comments Unknown Sex and Gender Information Value Date Recorded Sex Assigned at Not on file Legal Sex Female 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
--- OUTSIDE RECORDS SUMMARY | 2025-07-20 13:16 | XMS_ITS | Clinical Summary ---
Author Organization Jailyn Medrano [facility] Address [address] [place] [address] Phone Care Team Providers Care Lockstitch Waistband Setter Name Role Phone Uday Be MURDOCK Primary Care Provider [phone] Allergies Active Allergy Reactions Criticality Noted Date Comments Penicillins Anaphylaxis High 03/25/2013 Medications clopidogrel (PLAVIX) 75 mg Oral Tab Take 75 mg by mouth daily. Active levothyroxine 50 mcg Oral tablet Take 50 mcg by mouth daily tacker elastic band. Active aspirin (ECOTRIN EC) 81 mg Tablet, Delayed Release (E.C.) Take 81 mg by mouth daily. Active valsartan (DIOVAN) 80 mg tablet Take 80 mg by mouth 2 times daily. Active metFORMIN (GLUCOPHAGE) 500 mg tablet Take 500 mg by mouth 2 times daily with meals. Active gabapentin (NEURONTIN) 100 mg capsuleIndicati ons:Syrinx of spinal cord (CMS/HCC) Take 1 Capsule (100 mg) by mouth 3 times daily. 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 01/26/2017 Acquired hypothyroidism 01/26/2017 Social History Tobacco Use Types Packs/Day Years Used Date Smoking Tobacco: Never Smokeless Tobacco: Never Alcohol Use Standard Drinks/Week Comments No 0 (1 standard drink = 0.6 oz pur e alcohol) Comments No Sex and Gender Information Value Date Recorded Sex Assigned at Not on file Legal Sex 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 Gender Identity Not on file Sexual Orientation Not on file Last Filed Vital Signs Vital Sign Reading Time Taken Comments Blood Pressure 165/79 03/07/2021 11:00 AM CDT Pulse 68 03/07/2021 11:00 AM CDT Temperature 35.9 C (96.6 F) 03/07/2021 11:00 AM CDT Respiratory Rate 18 03/07/2021 11:00 AM CDT Oxygen Saturation 100% 03/07/2021 11:00 AM CDT Inhaled Oxygen Concentration - - Weight 66.9 kg (147 lb 6.4 oz) 03/07/2021 11:00 AM CDT Height 162.6 cm (5' 4 ) 03/07/2021 11:00 AM CDT Body Mass Index 25.3 03/07/2021 11:00 AM CDT Plan of Treatment Health Maintenance Due Date Last Done Comments DIABETES ANNUAL FOOT EXAM 1965 DIABETES ANNUAL RETINAL EXAM 1965 DIABETES HBA1C Q 6 MONTHS 1965 DIABETES MICROALBUMIN ANNUAL SCREEN 1965 LDL CHOLESTEROL ANNUAL 1965 DTAP/TDAP/TD VACCINES (1 - Tdap) 1966 PNEUMOCOCCAL VACCINE 50+ YEARS (1 of 2 - PCV) 06/20/19 66 ZOSTER VACCINE (1 of 2) 1997 OSTEOPOROSIS SCREENING 2012 RSV VACCINE (60+ or ) (1 - 1-dose 75+ series) 2022 INFLUENZA VACCINE (#1) 2025 [place] [address] Advance Directives For more information, please contact: [phone] * Full Code (Latest Code Status on File) Date Activated Date Inactivated Comments 01/26/2017 4:09 PM 01/27/2017 7:22 PM Care Teams Lockstitch Waistband Setter Relationship Specialty Start Date End Date Be Frye APRN PCP - General Nurse Practitioner Family 05/09/19
--- OUTSIDE RECORDS SUMMARY | 2025-07-20 13:16 | XMS_ITS | Clinical Summary ---
Author Organization Jailyn Med[facility] Address [address] [facility] [address] [place] [address] Phone Care Team Providers Care Wind Turbine Design Engineer Name Role Phone Be Frye APRN Primary Care Provider [phone] Allergies Active Allergy Reactions Criticality Noted Date Comments Penicillins Anaphylaxis High 03/25/2013 Medications clopidogreL (PLAVIX) 75 mg Tablet Take 75 mg by mouth daily. Active levothyroxine 50 mcg tablet Take 50 mcg by mouth daily in the morning. Active pravastatin (PRAVACHOL) 80 mg tablet Take 80 mg by mouth daily with supper. Active pantoprazole sodium (PROTONIX ORAL) Take by mouth. Active aspirin (ANKITA CHEWABLE) 81 mg Tablet, Chewable Take 81 mg by mouth daily. Active SITagliptin phosphate (JANUVIA) 25 mg Tablet Take 25 mg by mouth daily with breakfast. Active valsartan (DIOVAN) 160 mg tablet Take 160 mg by mouth daily. 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 Gender Identity Not on file Sexual Orientation Not on file Last Filed Vital Signs Vital Sign Reading Time Taken Comments Blood Pressure 123/102 04/01/2025 5:15 PM CDT Pulse 65 04/01/2025 5:15 PM CDT Temperature 36.1 C (97 F) 04/01/2025 4:00 PM CDT Respiratory Rate 17 04/01/2025 5:15 PM CDT Oxygen Saturation 96% 04/01/2025 5:15 PM CDT Inhaled Oxygen Concentration - - Weight 65 kg (143 lb 6.4 oz) 04/01/2025 4:00 PM CDT Height 162.6 cm (5' 4 ) 04/01/2025 4:00 PM CDT Body Mass Index 24.61 04/01/2025 4:00 PM CDT Plan of Treatment Health Maintenance Due Date Last Done Comments DIABETES ANNUAL FOOT EXAM 1965 DIABETES ANNUAL RETINAL EXAM 1965 DIABETES HBA1C Q 6 MONTHS 1965 DIABETES MICROALBUMIN ANNUAL SCREEN 1965 LDL CHOLESTEROL ANNUAL 1965 DTAP/TDAP/TD VACCINES (1 - Tdap) 1966 PNEUMOCOCCAL VACCINE 50+ YEA RS (1 of 2 - PCV) 1966 ZOSTER VACCINE (1 of 2) 1997 OSTEOPOROSIS SCREENING 2012 RSV VACCINE (60+ or ) (1 - 1-dose 75+ series) 2022 INFLUENZA VACCINE (#1) 2025 09/18/2023, 2021 COVID-19 Vaccine (3 - season) 2025, 11/23/2020 Medical Devices Implanted Type Area Lease Operator Device Identifier Shelf Expiration Date Model / Serial / Lot Iol Tecnix Eyhance 17.5/Bcnvx Hdrphb Acrl Hill Edge Implanted:Qty: 1 on 11/22/2021 by Lion Soto MD at [facility] Lens Right: Posterior Chamber 03/03/2024 [id number] / [id number] / Description:Joelle vasquez Vision Tecnis Eyhance IOL with Tecnis Simplicity Delivery System. DIB00. [employer] Iol Tecnis Eyhance 18.0/ Bcnvx Hdrphb Acrl Hill Edge Implanted:Qty: 1 on 12/27/2021 by Lion Soto MD at [facility] Lens Left: Eye 07/06/2024 / [id number] / Description:IOL TECNIS EYHAN CE 26.5/ BCNVX HDRPHB ACRL HILL EDGE/MODEL DIB00/MANUFACTURED BY [employer] VISION/DIOPTER +18/[id number] Stent Stent Heart Insurance [address] MEDICARE HMO Advance Directives For more information, please contact: [phone] * Full Code (Latest Code Status on File) Date Activated Date Inactivated Comments 12/27/2021 1:26 PM 12/27/2021 5:16 PM * Full Code Date Activated Date Inactivated Comments 11/22/2021 9:45 AM 11/22/2021 2:08 PM Care Teams Wind Turbine Design Engineer Relationship Specialty Start Date End Date Be Frye APRN PCP - General Nurse Practitioner Family 05/09/19
--- OUTSIDE RECORDS SUMMARY | 2025-07-20 13:16 | XMS_ITS | Encounter Summary ---
Author Organization [facility] Address [address] [place] [address] Care Team Providers Care Natural Remedy Consultant Name Role Phone Be Fyre APRN Primary Care Provider [phone] Encounter Details Date Type Department Care Team (Latest Contact Info) Description 07/10/2002 Outpatient Historical [facility] [address] [place] [address] Non-Staff, Physician NO ADDRESS ON FILE DIZZINESS AND GIDDINESS (Primary Dx) Social History Tobacco Use Types Packs/Day Years Used Date Smoking Tobacco: Never Assessed Comments Unknown Sex and Gender Information Value Date Recorded Sex Assigned at Not on file Legal Sex Female 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
--- NOTE | 2025-07-20 13:50 | ED_ITS ---
HPI - Chest Pain 2 General: Chief Complaint: Chest Pain Stated Complaint: CP and High Blood Pressure Time Seen by Provider: 07/20/25 13:34 History of Present Illness: 80-year-old female presents emergency ro om with intermittent chest pain. She said her intermittent progressive worsening chest pain for the last several days it was constant last night she gets a feeling of pressure worsened by exertion. She had a positive stress test earlier this year and she tells me she is scheduled to have an angiogram in about 3 weeks. She states the symptoms have gotten progressively worse. She has a known history of coronary disease has previously had stents placed in the past she is currently taking Plavix and aspirin despite this is having his escalating episodes of chest pain. She did get relief with sublingual nitro. Pain last night which had become intense enough at 1 point felt like she was going to pass out. She this mostly resolved at this time. Associated symptoms: Deny abdominal pain, dyspnea or fever(s) Related Data Home Medications ?Medication ?Instructions ?Recorded ?Confirmed levocetirizine 5 mg tablet 5 mg PO DAILY PRN allergies 07/20/25 07/20/25 levothyroxine 25 mcg tablet 25 mcg PO QAM 07/20/2508/03 sitagliptin phosphate 25 mg tablet 25 mg PO DAILY 07/1007/20/25 (Janna) Previous Rx's ?Medication ?Instructions ?Recorded blood sugar diagnostic #50 ea 04/17/22 blood-glucose meter #1 ea 04/17/22 inhalational spacing device (Chava #1 ea 10/04/23 Aerosol Yancey Enhancer spacer) blood sugar diagnostic (OneTouch #50 ea 04/06/25 Verio test strips) estradiol 0.01% (0.1 mg/gram) See Rx Instructions .Rou te 06/28/25 vaginal cream .COMPLEX #42.5 grams nitroglycerin 0.4 mg sublingual 0.4 mg sublingual Q5M PRN chest 07/15/25 tablet pain #25 tabs valsartan 80 mg tablet 80 mg PO DAILY 30 days #30 t abs 07/21/25 aspirin 81 mg tablet,delayed 81 mg PO DAILY 90 days #9 0 tabs 07/22/25 release atorvastatin 40 mg tablet 80 mg (2 x 40 mg) PO DAILY 9 0 days 07/22/25 #90 tabs clopidogrel 75 mg tablet 75 mg PO DAILY 90 days #90 t abs 07/22/25 Allergies Allergy/AdvReac Type Severity Reaction Status Date / Time erythromycin base Allergy Mild RASH Verified 07/20/25 13:24 Penicillins Allergy Mild rash Verified 07/20/25 13:24 Review of Systems 2 Const: Denies: fever(s) or chills Card: Reports: chest pain and dyspnea on exertion; Denies: edema or swelling of feet/ankles Resp: Denies: dyspnea GI: Denies: abdominal pain : Denies: dysuria, urinary frequency or urinary urgency Musc: Denies: neck pain or back pain Skin/Breast: Denies: rash PFSH ED 2 PFSH: Medical History Otitis media Symptoms of urinary tract infection Disorder of right eustachian tube Bronchitis Enrolled in chronic care management Influenza vaccine needed Pharyngitis Chest pressure Recurrent cold sores Nasal sore Large hiatal hernia Hyperemia Pelvic pain History of treatment for tuberculosis Post-menopausal Weakness Palpitations Generalized weakness Chronic back pain Compression fracture of thoracic vertebra Deformity of toenail Allergic conjunctivitis Wheezing Lower respiratory infection Upper respiratory infection Sensation of pressure in bladder area Acute bacterial sinusitis Anxiety about health Sleep apnea Tick bite Tick bite Oral herpes simplex infection Chronic sinusitis Syrinx of spinal cord Chest pain CAD (coronary artery disease) 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 Type 2 diabetes mellitus with other circulatory complication, without long-term current use of insulin Mixed hyperlipidemia Patient has CAD and history of elevated lipids. She is taking medications as ordered. Arteriosclerotic heart disease Hypothyroidism, unspecified type Hiatal hernia Essential hypertension Anxiety and depression (~04/10/24) Surgical History History of cataract surgery Status post cataract surgery History of colonoscopy S/P tonsillectomy S/P hysterectomy S/P hemorrhoidectomy H/O heart artery stent Angioplasty with placement of 3 stents in the mid and left anterior descending. Family History Mother Diabetes Hypertension Father Hypertension Other Cancer H/O heart artery stent Social History Smoking and tobacco/nicotine status: former use of tobacco/nicotine Physical Exam 2 Const: GENERAL APPEARANCE: cooperative ORIENTATION/CONSCIOUSNESS: Yes awake, Yes oriented to person, Yes oriented to place and Yes oriented to time HENMT: COMMON NORMALS: normocephalic, atraumatic and hearing grossly normal bilaterally HEAD & SCALP: normocephalic and atraumatic Resp: COMMON NORMALS: normal respiratory effort, No retractions, No use of accessory muscles and clear to auscultation bilaterally AUSCULTATION: clear to auscultation bilaterally Cardio: COMMON NORMALS: regular rate, regular rhythm and No murmurs present (Cardio) RATE: regular rate RHYTHM: regular rhythm GI: COMMON NORMALS: Soft to palpation and No hepatosplenomegaly present A USCULTATION: Yes normoactive bowel sounds PALPATION: Yes Soft to palpation, No Tenderness to palpation present (GI), No Guarding due to palpation present (GI) and Yes No hepatosplenomegaly present Extremity: COMMON NORMALS: normal to inspection, capillary refill normal, no clubbing, cyanosis or edema, no calf tenderness and no pedal edema Neuro: SENSORIUM/ORIENTATION: Yes oriented to person, Yes oriented to place and Yes oriented to time Skin: COMMON NORMALS: no rashes or lesions noted GENERAL SKIN EXAM: no rashes or lesions noted Course 2 Vital Signs: Vital signs: Vital Signs Temperature 98.0 F 07/22/25 07:39 Pulse Rate 69 07/22/25 10:13 Respiratory Rate 14 07/22/25 10:13 Blood Pressure 118/42 07/22/25 10:13 Pulse Oximetry 96 07/22/25 10:13 Oxygen Delivery Me thod Room Air 07/22/25 04:00 MDM - Chest Pain Medical Decision Making No acute ST changes noted on EKG troponins are normal. Patient's symptoms are very concerning she describes an escalating angina with unstable angina at rest now. Started on heparin and topical nitro discussed with hospitalist and discussed with cardiology will admit consult cardiology. She is evidently scheduled for an upcoming angiogram but probably will need to have it done sooner. Orders written. Medical Records I reviewed the patient's medical records. Lab Data I reviewed the patient's lab results. 07/22/25 05:55 07/22/25 05:55 Radiology Impressions Chest X-Ray 07/20/25 13:10 IMPRESSION: 1. Large hiatal hernia with air-fluid level. 2. No airspace disease. Laboratory Results WBC 5.95 10^3/uL (3.29-11.43) 07/20/25 13:40 RBC 4.71 10^6/uL (3.85-5.65) 07/20/25 13:40 Hgb 13.90 g/dL (11.27-16.99) 07/20/25 13:40 Hct 41.8 % (36-47) 07/20/25 13:40 MCV 88.7 fl (85-98) 07/20/25 13:40 MCH 29.5 pg (27-33) 07/20/25 13:40 MCHC 33.3 g/dL (30-55) 07/20/25 13:40 RDW 13.2 % (12.1-15.1) 07/20/25 13:40 Plt Count 286 10^3/cmm (157-399) 07/20/25 13:40 MPV 9.2 fL (7.4-10.4) 07/20/25 13:40 Neut % (Auto) 53.7 % 07/20/25 13:40 Lymph % (Auto) 26.6 % 07/20/25 13:40 Weston % (Auto) 11.1 % 07/20/25 13:40 Eos % (Auto) 7.1 % 07/20/25 13:40 Baso % (Auto) 1.0 % 07/20/25 13:40 Neut # (Auto) 3.20 10^3/uL (1.8-7.7) 07/20/25 13:40 Lymph # (Auto) 1.6 10^3/uL (0.8-4.8) 07/20/25 13:40 Weston # (Auto) 0.7 10^3/uL (0.2-0.9) 07/20/25 13:40 Eos # (Auto) 0.4 10^3/uL (0.0-0.8) 07/20/25 13:40 Baso # (Auto) 0.1 10^3/uL (0.0-0.1) 07/20/25 13:40 Nucleated RBC % (auto) 0 % 07/20/25 13:40 Nucleated RBCs # 0.0 /100WBC 07/20/25 13:40 Sodium 139 mmol/L (136-145) 07/20/25 13:40 Potassium 4.2 mmol/L (3.5-5.1) 07/20/25 13:40 Chloride 105 mmol/L (98-107) 07/20/25 13:40 Carbon Dioxide 21 mmol/L (22-29) L 07/20/25 13:40 Anion Gap 17.2 (5-19) 07/20/25 13:40 BUN 19 mg/dL (8-23) 07/20/25 13:40 Creatinine 0.8 mg/dL (0.5-0.9) 07/20/25 13:40 GFR Calculation Not Reportable 07/20/25 13:40 Glucose 157 mg/dL (65-115) H 07/20/25 13:40 Estimat Average Glucose 143 07/20/25 13:40 Hemoglobin A1c 6.6 % (4.0-6.0) H 07/20/25 13:40 Calculated Osmolality 294 mOsm/kg (285-295) 07/20/25 13:40 Calcium 9.7 mg/dL (8.5-10.5) 07/20/25 13:40 Total Bilirubin 0.3 mg/dL (0.15-1.2) 07/20/25 13:40 AST 17 U/L (0-32) 07/20/25 13:40 ALT 14 U/L (0-33) 07/20/25 13:40 Alkaline Phosphatase 96 U/L (35-105) 07/20/25 13:40 Troponin T Baseline 11 ng/L (0-10) H 07/20/25 13:40 Troponin T 120 Minute 10.02 ng/L (0-10) H 07/20/25 15:27 Delta Troponin T -0.98 ABS# (0-10) L 07/20/25 15:27 Total Protein 7.0 g/dL (6.6-8.7) 07/20/25 13:40 Albumin 4.7 g/dL (3.5-5.2) 07/20/25 13:40 Globulin 2.3 g/dL (1.3-4.6) 07/20/25 13:40 Triglycerides 347 mg/dL (0-150) H 07/20/25 13:40 Cholesterol 274 mg/dL (0-200) H 07/20/25 13:40 LDL Cholesterol, Calc 152 mg/dL (50-129) H 07/20/25 13:40 HDL Cholesterol 53 mg/dL (60-100) L 07/20/25 13:40 LDL/HDL Ratio 2.87 RATIO (0.00-3.22) 07/20/25 13:40 Cholesterol/HDL Ratio 5.17 mg/dL (0.0-4.40) H 07/20/25 13:40 TSH 4.34 uIU/mL (0.27-4.20) H 07/20/25 13:40 All radiology interpretation(s) finalized by discharge EKG Data EKG 1: I personally reviewed and interpreted this EKG as follows: Prior EKG tracings: available for review Interpretation: EKG 07/20/2025 1349. Sinus rhythm rate of 61. Poth 163 QTc [address] changes noted no ST depression or elevation. Compared to EKG 11/03/2024 no significant change Discharge Plan Discharge Patient Disposition: Admitted As Inpatient Admit Provider: Lawson Bell Clinical Impression: Unstable angina, Abnormal cardiovascular stress test Condition: Stable Coding Level of Care Code ED Propulsion Systems Engineer for Chg Fwd Heart Score HEART Score Components History: Highly Suspicious EKG: Non-specific Changes Age: 65 or more yrs Risk Factors: >/=3 Risk Factors Troponin: Baseline Trop <16 ng/L HEART Score RESULT HEART Score: 7
[2025-07-20 13:52] LABS: Hematocrit 41.8 % (36-47); Hemoglobin 13.90 g/dL (11.27-16.99); Mean Corpuscular HGB Conc 33.3 g/dL (30-55); Mean Corpuscular Hemoglobin 29.5 pg (27-33); Mean Corpuscular Volume 88.7 fl (85-98); Nucleated Red Blood Cells % 0 %; Platelet Count 286 10^3/cmm (157-399); Red Blood Count 4.71 10^6/uL (3.85-5.65); White Blood Count 5.95 10^3/uL (3.29-11.43)
[2025-07-20 14:12] LABS: Alanine Aminotransferase 14 U/L (0-33); Albumin Level 4.7 g/dL (3.5-5.2); Alkaline Phosphatase 96 U/L (35-105); Anion Gap 17.2 (5-19); Aspartate Amino Transferase 17 U/L (0-32); Blood Urea Nitrogen 19 mg/dL (8-23); Calcium 9.7 mg/dL (8.5-10.5); Carbon Dioxide 21 mmol/L (22-29); Chloride 105 mmol/L (98-107); Creatinine Clr Calc Pharmacy 53.6003; Globulin 2.3 g/dL (1.3-4.6); Glucose 157 mg/dL (65-115); Osmolality Calculated 294 mOsm/kg (285-295); Potassium 4.2 mmol/L (3.5-5.1); Sodium 139 mmol/L (136-145); Total Protein 7.0 g/dL (6.6-8.7)
[2025-07-20 14:13] LABS: Troponin(5th) Baseline 11 ng/L (0-10)
[2025-07-20] MEDS: nitroglycerin 1 gm/inch oint Pkt 1 INCH TOPICAL (14:58)
--- NOTE | 2025-07-20 15:10 | ECG_ITS ---
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 Measurements Intervals [place] Rate: 58 P: 47 WI: 172 QRS: 36 QRSD: 85 T: 66 QT: 417 QTc: 412 Interpretive Statements SINUS BRADYCARDIA Compared to ECG 07/20/2025 13:49:56 NO SIGNIFICANT CHANGE Electronically Signed On 07-25-2025 17:48:24 MANAGER CARDIOLOGY by Lon Woodard M.D. [email or web address]
[2025-07-20 15:58] LABS: Troponin 5 2HR 10.02 ng/L (0-10); Troponin 5 2HR Delta -0.98 ABS# (0-10)
--- NOTE | 2025-07-20 16:06 | PM.HP ---
Documented by User: Nita Smith NP 07/20/25 17:07 Providers/Chief Complaint Admitting Physician: Lawson Bell MD Primary Care Provider: ANTONI Griffin Chief Complaint: CP and High Blood Pressure History of Present Illness Dai Ross is a 80 year old female with known past medical history of atherosclerotic heart disease w/PCI of left and descending artery in 2001, CAD, HTN, hyperlipidemia, hypothyroidism, DM2, and GERD. Ms. Ross presents to [facility] ED with a chief complaint of chest pain and elevated blood pressure. Patient states that she has been having chest pressure over the past few days and reports that it has been noticeably worse with exertion. She also states she has been having an increase in anxiety over the last few months. Patient states that she had severe chest pain over night and was relieved slightly with sublingual nitro. Patient currently on plavix and aspirin. Patient noted to have a positive stress test in December and was scheduled for an cardiac angiogram in 3 weeks. Patient received nitro paste, PO aspirin, and a heparin drip was started while in ED. Cardiolody consulted. CBC, Troponin, CMP,EKG obtained and reviewed. Patient to be transferred to cardiac step down unit for continued care. Review of Systems Const: Denies: fever(s) or chills Card: Reports: chest pain and dyspnea on exertion; Denies: edema or swelling of feet/ankles Resp: Denies: dyspnea GI: Denies: abdominal pain, nausea, vomiting or diarrhea : Denies: dysuria, urinary frequency or urinary urgency Musc: Denies: neck pain or back pain Skin/Breast: Denies: rash Psych: Reports: anxiety All/Imm: Denies: acute wheezing Medications/Allergies Home Medications ?Medication ?Instructions ?Recorded ?Confirmed ?Last Taken ?Type blood sugar diagnostic #50 ea 04/17/22 07/20/25 Unknown Rx blood-glucose meter #1 ea 04/17/22 07/20/25 Unknown Rx inhalational spacing device (Chava #1 ea 10/04/23 07/20/25 Unknown Rx Aerosol Tama Enhancer spacer) blood sugar diagnostic (OneTouch #50 ea 04/06/25 07/20/25 Unknown Rx Verio test strips) valsartan 80 mg tablet 80 mg PO DAILY 30 days #30 tabs 05/26/25 07/20/25 07/20/25 Rx pravastatin 80 mg tablet 80 mg PO DAILY #90 tabs 05/28/25 07/20/25 07/20/25 Rx estradiol 0.01% (0.1 mg/gram) See Rx Instructions .Route 06/28/25 07/20/25 Unknown Rx vaginal cream .COMPLEX #42.5 grams nitroglycerin 0.4 mg sublingual 0.4 mg sublingual Q5M PRN chest 07/15/25 07/20/25 Unknown Rx tablet pain #25 tabs clopidogrel 75 mg tablet 75 mg PO DAILY 07/20/25 07/20/25 07/20/25 History levocetirizine 5 mg tablet 5 mg PO DAILY PRN allergies 07/20/25 07/20/25 Unknown History levothyroxine 25 mcg tablet 25 mcg PO QAM 07/20/25 07/20/25 07/20/25 History sitagliptin phosphate 25 mg tablet 25 mg PO DAILY 07/20/25 07/20/25 07/20/25 History (Janna) Allergies Allergy/AdvReac Type Severity Reaction Status Date / Time erythromycin base Allergy Mild RASH Verified 07/20/25 13:24 Penicillins Allergy Mild rash Verified 07/20/25 13:24 PFSH Acute PFSH: Medical History Otitis media Symptoms of urinary tract infection Disorder of right eustachian tube Bronchitis Enrolled in chronic care management Influenza vaccine needed Pharyngitis Chest pressure Recurrent cold sores Nasal sore Large hiatal hernia Hyperemia Pelvic pain History of treatment for tuberculosis Post-menopausal Weakness Palpitations Generalized weakness Chronic back pain Compression fracture of thoracic vertebra Deformity of toenail Allergic conjunctivitis Wheezing Lower respiratory infection Upper respiratory infection Sensation of pressure in bladder area Acute bacterial sinusitis Anxiety about health Sleep apnea Tick bite Tick bite Oral herpes simplex infection Chronic sinusitis Syrinx of spinal cord Chest pain CAD (coronary artery disease) 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 Type 2 diabetes mellitus with other circulatory complication, without long-term current use of insulin Mixed hyperlipidemia Patient has CAD and history of elevated lipids. She is taking medications as ordered. Arteriosclerotic heart disease Hypothyroidism, unspecified type Hiatal hernia Essential hypertension Anxiety and depression (~04/10/24) Surgical History History of cataract surgery Status post cataract surgery History of colonoscopy S/P tonsillectomy S/P hysterectomy S/P hemorrhoidectomy H/O heart artery stent Angioplasty with placement of 3 stents in the mid and left anterior descending. Family History Mother Diabetes Hypertension Father Hypertension Other Cancer H/O heart artery stent Social History Smoking and tobacco/nicotine status: never used tobacco/nicotine Vitals/I&O/Wt Last Vital Signs Temp 97.6 F 07/20/25 13:20 Pulse 61 07/20/25 15:49 Resp 17 07/20/25 13:20 BP 169/75 07/20/25 15:49 Pulse Ox 100 07/20/25 15:49 07/20/25 07/20/25 07/20/25 06:59 14:59 22:59 Intake Total 0 / 0 Balance 0 / 0 Weight last 48 hrs Weight 64.41 kg Physical Exam Const: COMMON NORMALS: no acute distress, patient oriented x3, healthy appearing and well nourished HENMT: COMMON NORMALS: normocephalic and moist oral mucous membranes HEAD & SCALP: normocephalic Eye: COMMON NORMALS: Equal, round and reactive pupils present PUPIL: Yes Equal, round and reactive pupils present Neck/C-Spine: COMMON NORMALS: no JVD Lymph: LYMPHATIC: no lymphadenopathy noted Resp: COMMON NORMALS: normal respiratory effort and clear to auscultation bilaterally AUSCULTATION: clear to auscultation bilaterally Cardio: COMMON NORMALS: no JVD, regular rate, regular rhythm, S1 normal heart sound present, S2 normal heart sound present and Peripheral pulses 2+ throughout RATE: regular rate RHYTHM: regular rhythm HEART SOUNDS: S1 normal heart sound present and S2 normal heart sound present PERIPHERAL PULSES: Peripheral pulses 2+ throughout GI: COMMON NORMALS: Normal to inspection, nondistended, normoactive bowel sounds present Extremity: COMMON NORMALS: normal to inspection, full ROM and no clubbing, cyanosis or edema Neuro: COMMON NORMALS: patient oriented x3 and CN's II-XII intact bilaterally Psych: COMMON NORMALS: cooperative, normal affect and speech normal SPEECH: Yes normal speech Skin: COMMON NORMALS: no rashes or lesions noted and turgor normal GENERAL SKIN EXAM: no rashes or lesions noted and turgor normal Data 07/20/25 13:40 07/20/25 13:40 A&P Assessment and plan 1. Unstable angina: 2. Essential hypertension: 3. Mixed hyperlipidemia: 4. Type 2 diabetes mellitus with other circulatory complication, without long-term current use of insulin: 5. Hypothyroid: 6. Anxiety and depression: Plan: Unstable Angina -Abnormal stress test 01/31, anticipated cardio angiogram in 3 weeks. -Cardiology consulted, heart catheterization planned for tomorrow morning -NPO -Cardiac monitoring, Serial troponins -Heparin drip initiated -As needed nitro, morphine, ordered Hypertension, uncontrolled - Admitting blood pressure 160/77 - Resume home medications: May auto substitute losartan 25 mg daily. - As needed hydralazine for SBP greater than 160 Mixed hyperlipidemia CAD - Continue cardioprotective medication including statin, plavix, and aspirin - Pending lipid panel - History of cardiac stent x 3 in 2001 DM type II, [id number] - Holding home medications - History of hypoglycemia - Low-dose sliding scale insulin, POC, hypoglycemic protocols - Pending A1c Hypothyroidism - Continue home medication levothyroxine - TSH pending Anxiety/depression - Not currently on home medication history of buspirone use -As needed hydroxyzine CODE STATUS: Full code VTE prophylaxis: Heparin drip GI prophylaxis: PPI PDMP PDMP Reviewed: Not Reviewed Coding Level of Care Code Acute Code for Chg Fwd Diagnoses Unstable angina I20.0 Essential hypertension I10 Mixed hyperlipidemia E78.2 Type 2 diabetes mellitus with other circulatory complication, without long-term current use of insulin E11.59 Diabetes mellitus complication detail: with other circulatory complications Diabetes mellitus complication status: with circulatory complication Diabetes mellitus intermediate insulin use: without manager terminal use Hypothyroid E03.9 Anxiety and depression F41.9; F32.A Documented by User: Beth Pean NP 07/20/25 17:11 Providers/Chief Complaint Chief Complaint: CP and High Blood Pressure Medications/Allergies Home Medications ?Medication ?Instructions ?Recorded ?Confirmed ?Last Taken ?Type blood sugar diagnostic #50 ea 04/17/22 07/20/25 Unknown Rx blood-glucose meter #1 ea 04/17/22 07/20/25 Unknown Rx inhalational spacing device (Chava #1 ea 10/04/23 07/20/25 Unknown Rx Aerosol Tama Enhancer spacer) blood sugar diagnostic (OneTouch #50 ea 04/06/25 07/20/25 Unknown Rx Verio test strips) valsartan 80 mg tablet 80 mg PO DAILY 30 days #30 tabs 05/26/25 07/20/25 07/20/25 Rx pravastatin 80 mg tablet 80 mg PO DAILY #90 tabs 05/28/25 07/20/25 07/20/25 Rx estradiol 0.01% (0.1 mg/gram) See Rx Instructions .Route 06/28/25 07/20/25 Unknown Rx vaginal cream .COMPLEX #42.5 grams nitroglycerin 0.4 mg sublingual 0.4 mg sublingual Q5M PRN chest 07/15/25 07/20/25 Unknown Rx tablet pain #25 tabs clopidogrel 75 mg tablet 75 mg PO DAILY 07/20/25 07/20/25 07/20/25 History levocetirizine 5 mg tablet 5 mg PO DAILY PRN allergies 07/20/25 07/20/25 Unknown History levothyroxine 25 mcg tablet 25 mcg PO QAM 07/20/25 07/20/25 07/20/25 History sitagliptin phosphate 25 mg tablet 25 mg PO DAILY 07/20/25 07/20/25 07/20/25 History (Januvia) Allergies Allergy/AdvReac Type Severity Reaction Status Date / Time erythromycin base Allergy Mild RASH Verified 07/20/25 13:24 Penicillins Allergy Mild rash Verified 07/20/25 13:24 PFSH Acute PFSH: Medical History Otitis media Symptoms of urinary tract infection Disorder of right eustachian tube Bronchitis Enrolled in chronic care management Influenza vaccine needed Pharyngitis Chest pressure Recurrent cold sores Nasal sore Large hiatal hernia Hyperemia Pelvic pain History of treatment for tuberculosis Post-menopausal Weakness Palpitations Generalized weakness Chronic back pain Compression fracture of thoracic vertebra Deformity of toenail Allergic conjunctivitis Wheezing Lower respiratory infection Upper respiratory infection Sensation of pressure in bladder area Acute bacterial sinusitis Anxiety about health Sleep apnea Tick bite Tick bite Oral herpes simplex infection Chronic sinusitis Syrinx of spinal cord Chest pain CAD (coronary artery disease) 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 Type 2 diabetes mellitus with other circulatory complication, without long-term current use of insulin Mixed hyperlipidemia Patient has CAD and history of elevated lipids. She is taking medications as ordered. Arteriosclerotic heart disease Hypothyroidism, unspecified type Hiatal hernia Essential hypertension Anxiety and depression (~04/10/24) Surgical History History of cataract surgery Status post cataract surgery History of colonoscopy S/P tonsillectomy S/P hysterectomy S/P hemorrhoidectomy H/O heart artery stent Angioplasty with placement of 3 stents in the mid and left anterior descending. Family History Mother Diabetes Hypertension Father Hypertension Other Cancer H/O heart artery stent Social History Smoking and tobacco/nicotine status: never used tobacco/nicotine Data 07/20/25 13:40 07/20/25 13:40 A&P Assessment and plan 1. Unstable angina: 2. Essential hypertension: 3. Mixed hyperlipidemia: 4. Type 2 diabetes mellitus with other circulatory complication, without long-term current use of insulin: 5. Hypothyroid: 6. Anxiety and depression: Plan: Unstable Angina -Abnormal stress test 01/31, anticipated cardio angiogram in 3 weeks. - Admitting Troponin T 11 - Cardiology consulted, heart catheterization planned for tomorrow morning - NPO - Cardiac monitoring, Serial troponins - Heparin drip initiated - As needed nitro, morphine, ordered Hypertension, uncontrolled - Admitting blood pressure 160/77 - Resume home medications: May auto substitute losartan 25 mg daily. - As needed hydralazine for SBP greater than 160 Mixed hyperlipidemia CAD - Continue cardioprotective medication including statin, plavix, and aspirin - Pending lipid panel - History of cardiac stent x 3 in 2001 DM type II, [id number] - Holding home medications - History of hypoglycemia - Low-dose sliding scale insulin, POC, hypoglycemic protocols - Pending A1c Hypothyroidism - Continue home medication levothyroxine - TSH pending Anxiety/depression - Not currently on home medication history of buspirone use - As needed hydroxyzine CODE STATUS: Full code VTE prophylaxis: Heparin drip GI prophylaxis: PPI PDMP PDMP Reviewed: Not Reviewed Attestations Medical Necessity Statement*: Admitting for unstable angina, Cardiology consultation, and heart cath Coding Level of Care Code Acute Code for [facility] Fwd Diagnoses Unstable angina I20.0 Essential hypertension I10 Mixed hyperlipidemia E78.2 Type 2 diabetes mellitus with other circulatory complication, without long-term current use of insulin E11.59 Diabetes mellitus complication detail: with other circulatory complications Diabetes mellitus complication status: with circulatory complication Diabetes mellitus intermediate insulin use: without intermediate use Hypothyroid E03.9 Anxiety and depression F41.9; F32.A
--- NOTE | 2025-07-20 17:03 | P.CONIM_ITS ---
<Statement entered by Lon Woodard MD - 07/20/25 19:59> Patient was evaluated and cared for in conjunction with an advanced practice practitioner. I personally examined the patient and reviewed the chart and all pertinent data including imaging, telemetry, and laboratory results. I discussed the patient in detail with the advanced practice practitioner. Please see their note for complete consult note, testing results and agreed upon plan of care for the patient. Patient still chest pain free this evening on my exam. [facility] in am. for UA Providers/Reason For Consult 2 Consulting Physician/Specialty*: Dr. Woodard, cardiology Reason for Consult*: Chest pain, abnormal stress test Attending Physician: Beth Pena NP Primary Care Provider: ANTONI Griffin History of Present Illness History of Present Illness Dai Ross is a 80 year old female with past medical history of CAD (PCI to the LAD in 2001), hypertension, type 2 diabetes, YASH. She presented to the emergency room this afternoon due to chest pain that has been exertional intermittent over the last several days. She notes substernal chest pain described as pressure, sometimes present on awakening from sleep, tightness in her jaws with diaphoresis and nausea during exertion. She is currently chest pain-free. EKG shows sinus rhythm with no ischemic ST or T wave changes. Normal renal function. She has an EGD this past November that did not show any pathology or bleeding. She underwent Lexiscan stress test in January of this year which showed moderate ischemia in the distal LAD/RCA territory, echocardiogram showed LVEF 78% at that time. She was recently seen by Dr. Szymanski a few days ago, coronary angiogram was planned. Due to worsening severity and frequency of her symptoms she came to the emergency room. Troponin series: 11?>10. Medications/Allergies Home Medications ?Medication ?Instructions ?Recorded ?Confirmed ?Last Taken ?Type blood sugar diagnostic #50 ea 04/17/22 07/20/25 Unk nown Rx blood-glucose meter #1 ea 04/17/22 07/20/25 Unkn own Rx inhalational spacing device (Chava #1 ea 10/04/23 Unknown Rx Aerosol [place] Enhancer spacer) blood sugar diagnostic (OneTouch #50 ea 04/06/2507/20 Unknown Rx Verio test strips) valsartan 80 mg tablet 80 mg PO DAILY 30 days #30 t abs 05/26/25 07/20/25 07/20/25 Rx pravastatin 80 mg tablet 80 mg PO DAILY #90 tabs 05/1007/20/25 07/20/25 Rx estradiol 0.01% (0.1 mg/gram) See Rx Instructions .Rou te 06/28/25 07/20/25 Unknown Rx vaginal cream .COMPLEX #42.5 grams nitroglycerin 0.4 mg sublingual 0.4 mg sublingual Q5M PRN chest 07/15/25 07/20/25 Unknown Rx tablet pain #25 tabs clopidogrel 75 mg tablet 75 mg PO DAILY 07/20/2507/1007/20/25 History levocetirizine 5 mg tablet 5 mg PO DAILY PRN allergies 07/20/25 07/20/25 Unknown History levothyroxine 25 mcg tablet 25 mcg PO QAM 07/20/2508/0307/20/25 History sitagliptin phosphate 25 mg tablet 25 mg PO DAILY 07/1007/20/25 07/20/25 History (Bruceuvia) Allergies Allergy/AdvReac Type Severity Reaction Status Date / Time erythromycin base Allergy Mild RASH Verified 07/20/25 13:24 Penicillins Allergy Mild rash Verified 07/20/25 13:24 PFSH Acute 2 PFSH: Medical History Otitis media Symptoms of urinary tract infection Disorder of right eustachian tube Bronchitis Enrolled in chronic care management Influenza vaccine needed Pharyngitis Chest pressure Recurrent cold sores Nasal sore Large hiatal hernia Hyperemia Pelvic pain History of treatment for tuberculosis Post-menopausal Weakness Palpitations Generalized weakness Chronic back pain Compression fracture of thoracic vertebra Deformity of toenail Allergic conjunctivitis Wheezing Lower respiratory infection Upper respiratory infection Sensation of pressure in bladder area Acute bacterial sinusitis Anxiety about health Sleep apnea Tick bite Tick bite Oral herpes simplex infection Chronic sinusitis Syrinx of spinal cord Chest pain CAD (coronary artery disease) 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 Type 2 diabetes mellitus with other circulatory complication, without long-term current use of insulin Mixed hyperlipidemia Patient has CAD and history of elevated lipids. She is taking medications as ordered. Arteriosclerotic heart disease Hypothyroidism, unspecified type Hiatal hernia Essential hypertension Anxiety and depression (~04/10/24) Surgical History History of cataract surgery Status post cataract surgery History of colonoscopy S/P tonsillectomy S/P hysterectomy S/P hemorrhoidectomy H/O heart artery stent Angioplasty with placement of 3 stents in the mid and left anterior descending. Family History Mother Diabetes Hypertension Father Hypertension Other Cancer H/O heart artery stent Social History Smoking and tobacco/nicotine status: never used tobacco/nicotine Vitals/I&O/Wt Last Vital Signs Temp 98.0 F 07/20/25 16:07 Pulse 58 L 07/20/25 16:07 Resp 19 H 07/20/25 16:07 BP 168/77 07/20/25 16:07 Pulse Ox 96 07/20/25 16:07 07/20/25 07/20/25 07/20/25 06:59 14:59 22:59 Intake Total 0 / 0 Balance 0 / 0 Weight last 48 hrs Weight 142 lb Physical Exam 2 Const: COMMON NORMALS: no acute distress and patient oriented x3 GENERAL APPEARANCE: cooperative and comfortable ORIENTATION/CONSCIOUSNESS: Yes awake, Yes oriented to person, Yes oriented to place and Yes oriented to time Chest: COMMONS NORMALS: normal inspection of the chest and normal palpation of entire chest wall CHEST: Yes Symmetrical chest wall rise Resp: COMMON NORMALS: normal respiratory effort, No retractions, No use of accessory muscles and clear to auscultation bilaterally EFFORT & INSPECTION: Yes symmetric chest movement AUSCULTATION: clear to auscultation bilaterally Cardio: COMMON NORMALS: regular rate, regular rhythm, S1 normal heart sound present, S2 normal heart sound present, No gallops present (Cardio), No clicks present (Cardio), No murmurs present (Cardio) and No rub (Cardio) RATE: r egular rate RHYTHM: regular rhythm HEART SOUNDS: S1 normal heart sound present and S2 normal heart sound present PERIPHERAL PULSES: radial pulses present Extremity: COMMON NORMALS: no pedal edema Neuro: COMMON NORMALS: patient oriented x3 and moves all extremities S ENSORIUM/ORIENTATION: Yes oriented to person, Yes oriented to place and Yes oriented to time Data 07/20/25 13:40 07/20/25 13:40 A&P Assessment and plan 1. Unstable angina: 2. CAD (coronary artery disease): 3. Mixed hyperlipidemia: 4. Essential hypertension: 5. Type 2 diabetes mellitus with other circulatory complication, without long- term current use of insulin: 6. Hypothyroidism, unspecified type: Plan: She has unstable angina, discussed her case with Dr. Kothari the outside machinist apprentice, plan for coronary gram tomorrow morning at 10 AM. N.p.o. after midnight tonight. Will give a dose of Lovenox 1 mg/kg SQ tonight rather than heparin infusion. She was loaded with aspirin earlier today, and given Nitropaste. Coronary angiogram discussed with the patient and she is in agreement to proceed. Currently chest pain-free, may start nitroglycerin infusion overnight if she develops recurrence of chest pain. PDMP PDMP Reviewed: Not Reviewed Coding Level of Care Code Acute Code for Chg Fwd Diagnoses Unstable angina I20.0 CAD (coronary artery disease) I25.10 Mixed hyperlipidemia E78.2 Essential hypertension I10 Type 2 diabetes mellitus with other circulatory complication, without long-term current use of insulin E11.59 Diabetes mellitus longterm insulin use: without lobsterman use Diabetes mellitus complication status: with circulatory complication Diabetes mellitus complication detail: with other circulatory complications Hypothyroidism, unspecified type E03.9 Hypothyroidism type: unspecified
--- NOTE | 2025-07-20 17:27 | USCV_ITS ---
Dai Ross Age: 80 Gender: F : 1945 Exam Date: 07/20/2025 22:23 Ordering Phys: Beth Pena NP Technologist: MAGUI [place] [facility] [place]: unstable angina, HTN, CAD s/p PCI 2001, HL, DM2, GERD BP: 168 / 77 HR: 55 Rhythm: Sinus bradycardia Technical Quality: Adequate MEASUREMENTS (Male / Female) Normal Values 2D ECHO LV Diastolic Diameter PLAX 3.6 cm 4.2 - 5.9 / 3.9 - 5.3 cm IVS Diastolic Thickness 1.5 cm 0.6 - 1.0 / 0.6 - 0.9 cm IVS Systolic Thickness 1.7 cm LVPW Diastolic Thickness 1.5 cm 0.6 - 1.0 / 0.6 - 0.9 cm LVPW Systolic Thickness 1.7 cm LVOT Diameter 1.9 cm LV Ejection Fraction 2D Teich 71.4 % LV Ejection Fraction MOD 4C 68.8 % LV Ejection Fraction MOD 2C 81.3 % LV Ejection Fraction 2C AL 82.4 % LA Diameter 1.8 cm Aorta at Sinotubular Diameter 2.1 cm IVC Diameter 1.6 cm M-MODE LA Ao Ratio MM 1.2 AV Cusp Separation MM 1.5 cm DOPPLER AV Peak Velocity 160.0 cm/s LVOT Peak Velocity 102.0 cm/s AV Area Cont Eq vti 1.9 cm squared AV Area Cont Eq pk 1.8 cm squared MV Peak Velocity 102.0 cm/s MV Area PHT 2.3 cm squared Mitral E to A Ratio 0.8 TV Peak E Velocity 52.0 cm/s PV Peak Velocity 104.0 cm/s FINDINGS Left Ventricle Normal left ventricular cavity size. Moderate left ventricular hypertrophy. Normal left ventricular systolic function. Grade II/IV diastolic dysfunction, moderately elevated filling pressures. Left ventricular ejection fraction is 68%. Right Ventricle Normal right ventricular size and systolic function. RVSP could not be calculated due to incomplete tricuspid regurgitation velocity profile. Right Atrium Normal right atrial size. Left Atrium Normal left atrial size. IA Septum Normal appearance of the interatrial septum. Mitral Valve Mildly thickened mitral valve leaflets. No mitral valve stenosis or regurgitation. Aortic Valve Normal aortic valve structure. No aortic valve stenosis. Mild aortic valve regurgitation. Tricuspid Valve Normal tricuspid valve structure. No tricuspid valve stenosis or regurgitation. Normal pulmonary pressure. Pulmonic Valve Normal pulmonic valve structure. <ild pulmonic valve regurgitation. Pericardium No pericardial effusion. Aorta Normal diameter of the aortic root and ascending thoracic aorta. IVC Normal IVC diameter. CONCLUSIONS Normal left ventricular cavity size. Moderate left ventricular hypertrophy. Normal left ventricular systolic function. Grade II/IV diastolic dysfunction, moderately elevated filling pressures. Left ventricular ejection fraction is 68%. Normal right ventricular size and systolic function. Mild aortic valve regurgitation Lon Woodard MD, FACC (Electronically Signed) Final Date: 20 July 2025 23:41 S
[2025-07-20] MEDS: pantoprazole 40 mg SDV IVP (17:54)
[2025-07-20 18:26] LABS: Cholesterol 274 mg/dL (0-200); HDL Cholesterol 53 mg/dL (60-100); Thyroid Stimulating Hormone 4.34 uIU/mL (0.27-4.20); Triglycerides 347 mg/dL (0-150)
[2025-07-20 18:38] LABS: Estmated Average Glucose 143; Hemoglobin A1C 6.6 % (4.0-6.0)
[2025-07-20 20:22] LABS: Troponin 5 6HR 10.16 ng/L (0-10)
--- NOTE | 2025-07-20 20:23 | ECG_ITS ---
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 Measurements Intervals [place] Rate: 71 P: 58 WI: 177 QRS: 36 QRSD: 80 T: 74 QT: 377 QTc: 410 Interpretive Statements SINUS RHYTHM Compared to ECG 07/20/2025 15:21:11 Sinus bradycardia no longer present Electronically Signed On 07-25-2025 16:48:32 ENERGY SPECIALIST by Lon Woodard M.D. [email or web address]
[2025-07-20 20:26] LABS: Troponin 5 6HR Delta -0.84 ng/L (0-12)
--- NOTE | 2025-07-20 20:51 | PC.NURSE ---
lispro held per charge due to pt scheduled to have cardiac cath in the morning and will be NPO after midnight
[2025-07-21] VITALS (25 sets, daily range): BP systolic 102–177; BP diastolic 50–89; PULSE 50–82; RESP 13–18; TEMP 36.1–36.6; O2SAT 96–98
[2025-07-21] MEDS: LOSARTAN 25 MG TABLET PO (04:41)
[2025-07-21] MEDS: ATORVASTATIN 20 MG TABLET PO (04:41)
[2025-07-21 05:34] LABS: Hematocrit 40.0 % (36-47); Hemoglobin 13.40 g/dL (11.27-16.99); Mean Corpuscular HGB Conc 33.5 g/dL (30-55); Mean Corpuscular Hemoglobin 29.7 pg (27-33); Mean Corpuscular Volume 88.7 fl (85-98); Nucleated Red Blood Cells % 0 %; Platelet Count 260 10^3/cmm (157-399); Red Blood Count 4.51 10^6/uL (3.85-5.65); White Blood Count 7.26 10^3/uL (3.29-11.43)
[2025-07-21 05:56] LABS: Alanine Aminotransferase 11 U/L (0-33); Albumin Level 4.0 g/dL (3.5-5.2); Alkaline Phosphatase 73 U/L (35-105); Anion Gap 14.2 (5-19); Aspartate Amino Transferase 15 U/L (0-32); Blood Urea Nitrogen 20 mg/dL (8-23); Calcium 9.1 mg/dL (8.5-10.5); Carbon Dioxide 24 mmol/L (22-29); Chloride 106 mmol/L (98-107); Globulin 2.7 g/dL (1.3-4.6); Glucose 121 mg/dL (65-115); Magnesium 2.1 mg/dL (1.7-2.3); Osmolality Calculated 294 mOsm/kg (285-295); Potassium 4.2 mmol/L (3.5-5.1); Sodium 140 mmol/L (136-145); Total Protein 6.7 g/dL (6.6-8.7)
--- NOTE | 2025-07-21 07:13 | PM.PN ---
Subjective Subjective: Patient is a very pleasant 80-year-old female seen and examined at bedside on hospital rounds today. Patient sitting up in bed stating no chest pain or shortness of breath. Patient had many questions about her upcoming catheterization, was nervous about her previous 3 stents. Reassured the patient that cardiology would be able to answer her questions prior to her proceeding with heart catheterization this morning. Patient denied new or worsening symptoms and had no other questions or concerns at the bedside today. Vital signs remained stable, negative delta on her troponin. Labs reviewed, creatinine 1.0, remaining labs within normal limits. Patient underwent heart catheterization with 3 stents after examination. Vitals/I&O/Wt Last Vital Signs Temp 97.8 F 07/21/25 04:00 Pulse 50 L 07/21/25 05:10 Resp 13 07/21/25 04:00 BP 111/59 07/21/25 04:00 Pulse Ox 97 07/21/25 04:00 O2 Del Method Room Air 07/21/25 04:00 Weight last 48 hrs Weight 64.949 kg Weight 64.41 kg Physical Exam Const: COMMON NORMALS: no acute distress and patient oriented x3 GENERAL APPEARANCE: cooperative and comfortable ORIENTATION/CONSCIOUSNESS: Yes awake, Yes oriented to person, Yes oriented to place and Yes oriented to time Chest: COMMONS NORMALS: normal inspection of the chest and normal palpation of entire chest wall CHEST: Yes Symmetrical chest wall rise Resp: COMMON NORMALS: normal respiratory effort, No retractions, No use of accessory muscles and clear to auscultation bilaterally EFFORT & INSPECTION: Yes symmetric chest movement AUSCULTATION: clear to auscultation bilaterally Cardio: COMMON NORMALS: regular rate, regular rhythm, S1 normal heart sound present, S2 normal heart sound present, No gallops present (Cardio), No clicks present (Cardio), No murmurs present (Cardio) and No rub (Cardio) RATE: regular rate RHYTHM: regular rhythm HEART SOUNDS: S1 normal heart sound present and S2 normal heart sound present PERIPHERAL PULSES: radial pulses present Extremity: COMMON NORMALS: no pedal edema Neuro: COMMON NORMALS: patient oriented x3 and moves all extremities SENSORIUM/ORIENTATION: Yes oriented to person, Yes oriented to place and Yes oriented to time Data 07/21/25 04:56 07/21/25 04:56 A&P Assessment and plan 1. Unstable angina: 2. Essential hypertension: 3. Mixed hyperlipidemia: 4. Type 2 diabetes mellitus with other circulatory complication, without long-term current use of insulin: 5. Hypothyroid: 6. Anxiety and depression: Plan: Unstable Angina - Abnormal stress test 01/31, anticipated cardio angiogram in 3 weeks. - Greatly appreciate cardiology consultation and management - Status post heart catheterization with 3 stents - Cardiac monitoring, Serial troponins - Heparin drip initiated - As needed nitro, morphine, ordered Hypertension - Admitting blood pressure 169/80 - Resume home medications: May auto substitute losartan 25 mg daily. - As needed hydralazine for SBP greater than 160 Mixed hyperlipidemia CAD - Continue cardioprotective medication including statin, plavix, and aspirin -Review statin dosing with cardiology - Triglycerides 347, cholesterol 274, LDL 152, HDL 53 - History of cardiac stent x 3 in 2001 DM type II, [id number] - Holding home medications - History of hypoglycemia - Low-dose sliding scale insulin, POC, hypoglycemic protocols - Pending A1c Hypothyroidism - Continue home medication levothyroxine - TSH pending Anxiety/depression - Not currently on home medication history of buspirone use - As needed hydroxyzine CODE STATUS: Full code VTE prophylaxis: Heparin drip GI prophylaxis: PPI PDMP PDMP Reviewed: Not Reviewed Attestations Medical Necessity Statement*: Will need greater than 2 midnights inpatient continued care for unstable angina, Cardiology consultation, status post heart stent x 3 Coding Level of Care Code 11133 Diagnoses Unstable angina I20.0 Essential hypertension I10 Mixed hyperlipidemia E78.2 Type 2 diabetes mellitus with other circulatory complication, without long-term current use of insulin E11.59 Diabetes mellitus complication detail: with other circulatory complications Diabetes mellitus complication status: with circulatory complication Diabetes mellitus [facility] insulin use: without [facility] use Hypothyroid E03.9 Anxiety and depression F41.9; F32.A
--- NOTE | 2025-07-21 07:27 | XACV_ITS ---
Exam Room: 2 Ht: 163 cm Wt: 64 kg BSA: 1.72 m2 Gender: Female : 1945 Any Known Allergies: Other Exam Priority: Routine Procedure(s): Procedure Description: Diagnostic procedure Procedure Description: PCI procedure Procedure Description: Drug Eluting Coronary Stent Procedure Description: PTCA Procedure Description: Miscellaneous Procedure Description: ACT Procedure Description: Coronary Angiography Diagnostic Cath Status: Elective Diagnostic Findings * INDICATION: Worsening angina/ abnormal stress test. * Circumflex has mild to moderate luminal irregularities. OM 1 is small to medium sized vessel with significant stenosis. Large sized OM 2 has moderate 40-50% stenosis. * Proximal Left Anterior Descending: subtotal occlusion, BREANNA: 2 flow. Proximal to mid LAD has long stents that are subtotally occluded. * Mid Left Anterior Descending: subtotal occlusion of prior stent, BREANNA: 1 flow. Distal to the stent there is severe [place] vessel stenosis as well. * Left Main has no significant disease. * Right Coronary Artery has mild to moderate diffuse disease. * Coronary angiography shows right dominance. PCI Status: Elective PCI Indication: Other Interventional Findings * Procedure detail:We engaged left main artery with XB 3.5 guide catheter. Run-through wire was used to cross subtotally occluded proximal to mid LAD stents. We predilated the stents with 2.5 x 30 mm semicompliant balloon. This was followed by placement of a 2.5 x 30 mm resolute Dilma drug-eluting stent in mid to distal vessel. We placed another overlapping 3.0 x 38 mm resolute [place] drug-eluting stent from proximal to mid vessel. In proximal vessel third overlapping 3.5 x 18 mm resolute Dilma drug-eluting stent. We post dilated disease with stents with 3.5 x 27 mm NC balloon at high pressure. At this time final angiogram showed excellent stent expansion and no residual stenosis. Guidewire and catheter were removed. Patient left the Balance Staff Staker in stable condition.. * Proximal Left Anterior Descendin% stenosis treated with a AB TREK 2.50X30 RX BALLOON, and MDT R DILMA 3.5X18 AIDE. 0% residual stenosis, BREANNA: 3 flow. * Mid Left Anterior Descendin% stenosis treated with a AB TREK 2.50X30 RX BALLOON, MDT R DILMA 2.5X30 AIDE, MDT R DILMA 3.0X38 AIDE, and MDT NC EUPHORA RX [id number] BALLOON. 0% residual stenosis, BREANNA: 3 flow. Conclusions 1. Subtotally occluded LAD s/p PCI with 3 stents. 2. Proximal Left Anterior Descending was treated with a Balloon, and Drug Eluting Stent. 3. Mid Left Anterior Descending was treated with a Balloon, Drug Eluting Stent, Drug Eluting Stent, and Balloon. Recommendations * Dual antiplatelet therapy with aspirin and plavix. * High intensity statin therapy. * Outpatient cardiology follow up in 2 weeks. Interventional RX Recommendation: PCI w/o planned CABG Diagnostic RX Recommendation: PCI w/o planned CABG Anticoagulation: Heparin Pressures Phase:Rest AO : 79 / 53 ( 66 ) @ 9:54:00 AM 94 / 55 ( 72 ) @ 10:00:00 AM 153 / 84 ( 115 ) @ 10:12:00 AM Clinical Evaluation EBL: 5mL-10mL Procedural Details Procedure Consent Obtained. Pre-Procedure Time Out. Identified patient by full name and date of as verbalized by the patient/guarantor. Does the consent match the physician's order: Yes. Accurate & Complete Informed Consent: Yes. Inpatient/Outpatient History & Physical on Chart: Yes. If H&P is completed, is and addenduem needed: No; If yes, is the addendum complete: N/A. Visualize and Verify Site with Patient/Guarantor: N/A. Relevant Radiology Images available: Yes. Pre-op teaching completed and patient verbalized understanding. The risks, benefits, and alternatives of sedation and/or procedure were discussed by physician. The patient agrees to continue. Procedure started. [facility] Clinical Fraility Score: 3: Managing Well. Balance Staff Staker Indications: Worsening Angina. Chest Pain Symptom Assessment: Atypical Angina. Correct patient, site and procedure confirmed by cath team. Current diagnosis: Chest Pain. PERRLA. 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 Lungs clear x 5 lobes. IV Site on Arrival: 18 gauge in the left anticubital. Physician arrived. IV Fluids: 0.9% NaCl at KVO. 0 mL infused prior to odd job laborer. Pre Procedural Pulses: right radial was 2+. Oxygen started at 2liters/min via nasal canula. right groin was prepped with chloroprep then draped in the usual sterile fashion. right radial was prepped with chloroprep then draped in the usual sterile fashion. Baseline sample Acquired. HR: 66 BPM. Physician scrubbed in. Immediate Pre-Procedure Time Out. Correct Patient: Yes; Correct Procedure: Yes; Correct Site: Yes; Correct Patient Position: Yes; Correct Supplies: Yes; Dried Flammable Prep: Yes; Blood Products Available: N/A;. Lidocaine 1% infiltrated to the right radial. Arterial access obtained. Wire unable to advance. Wire and needle out. Arterial access obtained. A 20 gauge IV was started in the left hand using aseptic technique. The left AC IV removed. Contrast hand injected through the catheter. A TR Band was successful obtaining hemostatsis at the Right Radial artery insertion site. Lidocaine 1% infiltrated to the right groin. Arterial access obtained with micropuncture set. A 5 [place] JL4 catheter in over wire. Multiple views taken of left coronary artery. Catheter removed over the standard wire. A 5 [place] JR4 catheter in over wire. Multiple views taken of right coronary artery. Catheter removed over the standard wire. 6 [place] XB 3 guide catheter was inserted over the wire. Runthrough guidewire was advanced through the guide catheter to lesion in the prox LAD. Inflation number : 1 A AB TREK 2.50X30 RX BALLOON was prepped and advanced across the Mid LAD , then inflated to 8 MILLI for 0:05 seconds. Inflation number: 1 The AB TREK 2.50X30 RX BALLOON was reinflated across the Mid LAD, to 20 MILLI for 0:08 seconds. Inflation number: 1 The AB TREK 2.50X30 RX BALLOON was reinflated across the Prox LAD, to 20 MILLI for 0:11 seconds. Inflation number: 2 The AB TREK 2.50X30 RX BALLOON was reinflated across the Prox LAD, to 20 MILLI for 0:12 seconds. Inflation number: 3 The AB TREK 2.50X30 RX BALLOON was reinflated across the Prox LAD, to 20 MILLI for 0:15 seconds. Balloon out. Results checked. Inflation number: 3 The AB TREK 2.50X30 RX BALLOON was reinflated across the Mid LAD, to 10 MILLI for 0:14 seconds. Balloon out. Results checked. IVUS catheter inserted OTW and advanced to the LAD. IVUS of the LAD performed. IVUS catheter out. Inflation Number : 4 A MDT R DILMA 2.5X30 AIDE -Lot Number# _[id number] EXP: 07/29/2027 was prepped and advanced across the Mid LAD. The stent was deployed at 12 MILLI for 0:12 seconds. Stent balloon out over wire. Inflation Number : 5 A MDT R DILMA 3.0X38 AIDE -Lot Number# _[id number] EXP: 11/15/2027 was prepped and advanced across the Mid LAD. The stent was deployed at 16 MILLI for 0:15 seconds. Stent balloon out over wire. Inflation Number : 4 A MDT R DILMA 3.5X18 AIDE -Lot Number# _[id number]_ EXP: 11/18/2027 was prepped and advanced across the Prox LAD. The stent was deployed at 12 MILLI for 0:13 seconds. Stent balloon out over wire. ACT drawn. Results out of range high seconds. Therapeutic limits - pre-heparin administration 90-150 seconds and monitoring heparin during a vascular procedure >250 seconds. Results checked. 3.5x27 NC Euphora Balloon inserted to lesion in the prox LAD. Balloon out. Guideliner inserted OTW. 3.5x27 NC Euphora Balloon inserted to lesion in the prox LAD. Balloon out. Inflation number: 6 The AB TREK 2.50X30 RX BALLOON was reinflated across the Mid LAD, to 20 MILLI for 0:14 seconds. Inflation number: 7 The AB TREK 2.50X30 RX BALLOON was reinflated across the Mid LAD, to 20 MILLI for 0:09 seconds. Inflation number: 5 The AB TREK 2.50X30 RX BALLOON was reinflated across the Prox LAD, to 20 MILLI for 0:09 seconds. Balloon out. Inflation number : 8 A MDT NC EUPHORA RX [id number] BALLOON was prepped and advanced across the Mid LAD , then inflated to 6 MILLI for 0:14 seconds. Inflation number: 9 The MDT NC EUPHORA RX [id number] BALLOON was reinflated across the Mid LAD, to 20 MILLI for 0:00 seconds. Inflation number: 10 The MDT NC EUPHORA RX [id number] BALLOON was reinflated across the Mid LAD, to 22 MILLI for 0:14 seconds. Inflation number: 11 The MDT NC EUPHORA RX 3.77G37GY BALLOON was reinflated across the Mid LAD, to 22 MILLI for 0:09 seconds. Balloon out. Wire out. Results checked. Guide catheter out. ACT drawn. Results out of range high seconds. Therapeutic limits - pre-heparin administration 90-150 seconds and monitoring heparin during a vascular procedure >250 seconds. A Right femoral angiogram was performed to determine safe placement of closure device. A Angio-Seal VIP ([facility] [facility]) was successful obtaining hemostatsis at the Right Femoral artery insertion site. Post Procedure: Pulses reassessed and unchanged. PERRLA. 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 No VTE prophylaxis required. Medication's Wasted: Nitro = 49.3 mcg. Medication's Wasted: Other = Fentanyl 50 mcg. Total IV fluids: 80 mL. Post-op diagnosis: Stent to LAD. Complications: None. Vital chart was stopped. Estimated blood loss: 5mL-10mL. Responsiveness - Normal response to verbal stimuli; alert and oriented, PERRLA. Airway - Unaffected, no intervention required; spontaneous ventilation. Circulation: W/N/L, pulses unchanged. Nausea/Vomiting: No. Procedure completed. Medication's Wasted: Heparin = 4000 units. Patient transferred by bed to 1st floor. Access Site Site: Right Radial artery Sheath Size: 6 Fr Hemostasis Method: TR Band Hemostasis Success: Successful Site: Right Femoral artery Sheath Size: 6 Fr Hemostasis Method: Angio-Seal VIP ([facility]) Hemostasis Success: Successful Procedure Medications Start: 9:34 AM Stop: 9:34 AM Medication: Versed Amount: 1 mg Route: I.V. Start: 9:34 AM Stop: 9:34 AM Medication: Fentanyl Amount: 50 mcg Route: I.V. Start: 9:38 AM Stop: 9:38 AM Medication: Versed Amount: 1 mg Route: I.V. Start: 9:38 AM Stop: 9:38 AM Medication: Fentanyl Amount: 50 mcg Route: I.V. Start: 9:41 AM Stop: 9:41 AM Medication: Nitrogylcerin Amount: 200 mcg Route: I.A. Start: 9:44 AM Stop: 9:44 AM Medication: Versed Amount: 1 mg Route: I.V. Start: 9:45 AM Stop: 9:45 AM Medication: Fentanyl Amount: 50 mcg Route: I.V. Start: 9:58 AM Stop: 9:58 AM Medication: Heparin Amount: 6000 units Route: I.V. Start: 10:18 AM Stop: 10:18 AM Medication: Versed Amount: 1 mg Route: I.V. Start: 10:24 AM Stop: 10:24 AM Medication: Nitrogylcerin Amount: 300 mcg Route: I.A. Start: 10:30 AM Stop: 10:30 AM Medication: Heparin Amount: 1000 units Route: I.V. Start: 10:42 AM Stop: 10:42 AM Medication: Plavix Amount: 600 mg Route: P.O. I, the attending physician, have reviewed and verified all procedure medications. Yes, all medications given per verbal order History/Risk Factors Hypertension: No Dyslipidemia: No Peripheral Arterial Disease (PAD): No Myocardial Infarction ([place]): No Obesity: No Renal Disease: No Prior Interventions PCI: No CABG: No Valve Surgery: No Report Signatures Finalized by Beny Kothari MD on 08/01/2025 12:57 PM
--- NOTE | 2025-07-21 09:21 | PC.NURSE ---
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
--- NOTE | 2025-07-21 09:35 | W.PM.OPSUD ---
Surgery/Procedure H&P Update DATE OF PROCEDURE: July 21, 2025 DATE H&P PERFORMED: 07/20/25 H&P UPDATE INFORMATION: I have reviewed H&P completed within last 30 days, I have examined patient prior to procedure and No changes to prior documentation PREOP DIAGNOSIS: Worsening angina/abnormal stress test PRIMARY INDICATION FOR PROCEDURE: Worsening angina/abnormal stress test PLANNED PROCEDURE: Left heart cath with possible percutaneous coronary intervention PATIENT REASSESSED PRIOR TO SEDATION, WITH NO CHANGE NOTED: Yes PHYSICAL EXAM: alert, oriented x 3, clear to auscultation bilaterally and regular rate & rhythm AIRWAY EVAL/ANESTHESIA PLAN: normal airway, ASA III, Local Anesthesia, Risks, benefits & alternatives of sedation and/or procedure discussed and Patient agrees to continue as planned ADDITIONAL INFORMATION: Moderate sedation
--- NOTE | 2025-07-21 11:10 | PC.NURSE ---
Patient returned from lift slab operator with a right radial. TR-band and right femoral angioseal. Per Dr. Saniya JANSEN to run at 50ml/hr for 1 L. Patient can get up at 1500.
--- NOTE | 2025-07-21 11:33 | PM.PROC ---
Procedure Note: Date of procedure: 07/21/25 Pre-procedure diagnosis: Worsening angina/ abnormal stress test Post-procedure diagnosis: other (Subtotal to total occlusion of proximal to mid LAD stents. Status post PCI with 3 stents.) Procedure: 99 to 100% occlusion of proximal to mid LAD with prior stents. Status post PCI with 3 stents. Left circumflex artery and RCA are patent dual antiplatelet therapy with aspirin and Plavix Performing Provider: Beny Kothari Complications: None Condition: stable Disposition: floor Coding Level of Care Code Acute Code for Alessandro Medina
--- NOTE | 2025-07-21 12:49 | P.PN_ITS ---
<Statement entered by Lon Woodard MD - 07/21/25 17:46> Patient was evaluated and cared for in conjunction with an advanced practice practitioner. I personally saw the patient and reviewed the chart and all pertinent data. I discussed the patient in detail with the advanced practice practitioner. Please see their note for complete assessment and agreed upon plan of care for the patient. Subjective 2 Subjective: She had coronary angiogram today, 3 stents to the LAD. Vitals/I&O/Wt Last Vital Signs Temp 96.9 F L 07/21/25 11:29 Pulse 69 07/21/25 12:20 Resp 15 07/21/25 11:29 BP 161/69 07/21/25 12:20 Pulse Ox 96 07/21/25 11:29 O2 Del Method Room Air 07/21/25 11:29 Weight last 48 hrs Weight 142 lb 7 oz Weight 143 lb 3 oz Weight 142 lb Physical Exam 2 Const: COMMON NORMALS: no acute distress and patient oriented x3 GENERAL APPEARANCE: cooperative ORIENTATION/CONSCIOUSNESS: Yes awake, Yes oriented to person, Yes oriented to place and Yes oriented to time Chest: COMMONS NORMALS: normal inspection of the chest and normal palpation of entire chest wall CHEST: Yes Symmetrical chest wall rise Resp: COMMON NORMALS: normal respiratory effort, No retractions, No use of accessory muscles and clear to auscultation bilaterally AUSCULTATION: clear to auscultation bilaterally Cardio: COMMON NORMALS: regular rate, regular rhythm, S1 normal heart sound present, S2 normal heart sound present, No gallops present (Cardio), No clicks present (Cardio), No murmurs present (Cardio) and No rub (Cardio) RATE: r egular rate RHYTHM: regular rhythm HEART SOUNDS: S1 normal heart sound present and S2 normal heart sound present PERIPHERAL PULSES: radial pulses present positive right 2+ and femoral pulses present positive right 2+ Neuro: COMMON NORMALS: patient oriented x3 and moves all extremities S ENSORIUM/ORIENTATION: Yes oriented to person, Yes oriented to place and Yes oriented to time Skin: WOUNDS: Yes surgical site (no hematoma palpable) Details: no odor Data 07/21/25 04:56 07/21/25 04:56 A&P Assessment and plan 1. Unstable angina: 2. CAD (coronary artery disease): 3. Mixed hyperlipidemia: Plan: Continue aspirin, Plavix, statin. Will observe overnight and recheck BMP in the morning. Possible discharge tomorrow. If blood pressure becomes hypertensive we can restart her valsartan 80 mg daily home dose. PDMP PDMP Reviewed: Not Reviewed Attestations 2 Medical Necessity Statement*: Post cath, stents to the LAD x 3 Coding Level of Care Code Acute Code for Chg Fwd Diagnoses Unstable angina I20.0 CAD (coronary artery disease) I25.10 Mixed hyperlipidemia E78.2
[2025-07-21] MEDS: ondansetron 2 mg/ML SDV 2 mL 4 MG IVP (15:20)
[2025-07-21] MEDS: pantoprazole 40 mg SDV IVP (17:16)
--- NOTE | 2025-07-21 17:48 | PC.NURSE ---
Patient's right radial TR-Band is removed. Air was slowly removed 2ml's at a time. Air is completely removed and TR-band is removed. The area is bruised but no raised hematoma is noted. A dressing of 2 x 2 and tegaderm is placed. Patient tolerated it well. Patient is reeducated that she is not to use her right wrist/hand for the first 24 hours. Patient states understanding.
--- NOTE | 2025-07-21 19:48 | PC.NURSE ---
Patient's granddaughter, Tamara Zhu called, Patient consented to staff giving information to her.
[2025-07-22] VITALS (7 sets, daily range): BP systolic 103–118; BP diastolic 42–59; PULSE 53–69; RESP 11–20; TEMP 36.2–36.7; O2SAT 93–97; BMI 25.1
[2025-07-22 06:47] LABS: Hematocrit 35.1 % (36-47); Hemoglobin 11.80 g/dL (11.27-16.99); Mean Corpuscular HGB Conc 33.6 g/dL (30-55); Mean Corpuscular Hemoglobin 29.6 pg (27-33); Mean Corpuscular Volume 88.2 fl (85-98); Nucleated Red Blood Cells % 0 %; Platelet Count 236 10^3/cmm (157-399); Red Blood Count 3.98 10^6/uL (3.85-5.65); White Blood Count 8.12 10^3/uL (3.29-11.43)
[2025-07-22 06:51] LABS: Alanine Aminotransferase 11 U/L (0-33); Albumin Level 3.7 g/dL (3.5-5.2); Alkaline Phosphatase 67 U/L (35-105); Anion Gap 15.5 (5-19); Aspartate Amino Transferase 25 U/L (0-32); Blood Urea Nitrogen 13 mg/dL (8-23); Calcium 8.5 mg/dL (8.5-10.5); Carbon Dioxide 23 mmol/L (22-29); Chloride 106 mmol/L (98-107); Globulin 2.2 g/dL (1.3-4.6); Glucose 102 mg/dL (65-115); Magnesium 2.0 mg/dL (1.7-2.3); Osmolality Calculated 290 mOsm/kg (285-295); Potassium 4.5 mmol/L (3.5-5.1); Sodium 140 mmol/L (136-145); Total Protein 5.9 g/dL (6.6-8.7)
--- NOTE | 2025-07-22 09:00 | P.DS_ITS ---
Discharge Providers Date of Admission: 07/20/25 15:33 Date of Discharge: July 22, 2025 Attending Provider at Admission: Lawson Bell MD Attending Provider at Discharge: Beth Pena NP Primary Care Provider: ANTONI Griffin Diagnoses at Discharge Discharge Diagnosis 1. Unstable angina: 2. Coronary artery disease of [place] artery [place] heart with stable angina pectoris: 3. Mixed hyperlipidemia: Reason for Visit Reason for Visit: CP and High Blood Pressure Brief History: Admission: Dai Ross is a 80 year old female with known past medical history of atherosclerotic heart disease w/PCI of left and descending artery in 2001, CAD, HTN, hyperlipidemia, hypothyroidism, DM2, and GERD. Ms. Ross presents to [facility] ED with a chief complaint of chest pain and elevated blood pressure. Patient states that she has been having chest pressure over the past few days and reports that it has been noticeably worse with exertion. She also states she has been having an increase in anxiety over the last few months. Patient states that she had severe chest pain over night and was relieved slightly with sublingual nitro. Patient currently on plavix and aspirin. Patient noted to have a positive stress test in December and was scheduled for an cardiac angiogram in 3 weeks. Patient received nitro paste, PO aspirin, and a heparin drip was started while in ED. Cardiolody consulted. CBC, Troponin, CMP,EKG obtained and reviewed. Patient to be transferred to cardiac step down unit for continued care. Hospital Course Hospital Course Interventions: Unstable Angina - Abnormal stress test 01/31, anticipated cardio angiogram in 3 weeks. - Greatly appreciate cardiology consultation and management - Status post heart catheterization with 3 stents - Cardiac monitoring, Serial troponins - As needed nitro, morphine, ordered Hypertension - Admitting blood pressure 169/80 - Resume home medications: May auto substitute losartan 25 mg daily. - As needed hydralazine for SBP greater than 160 Mixed hyperlipidemia CAD - Continue cardioprotective medication including statin, plavix, and aspirin - Lipitor increased to 80mg PO daily - Triglycerides 347, cholesterol 274, LDL 152, HDL 53 - History of cardiac stent x 3 in 2001 DM type II, [id number] - Holding home medications - History of hypoglycemia - Low-dose sliding scale insulin, POC, hypoglycemic protocols - Resume home medications at discharge Hypothyroidism - Continue home medication levothyroxine - TSH pending Anxiety/depression - Not currently on home medication history of buspirone use - As needed hydroxyzine Patient is a very pleasant 80-year-old female who was treated inpatient for unstable angina, greatly appreciate cardiology consultation and management with Dr. Kothari, patient is status post heart catheterization with 3 stents. Patient's cholesterol elevated, increased pravastatin to 80 mg p.o. daily, continues Plavix and aspirin at discharge. Comorbidities managed with home dosing medications with the exception of diabetes medications of which she was on sliding scale insulin. The patient did very well overall had no chest pain or shortness of breath at time of discharge. Patient discharge is in good stable condition in care of spouse, will follow-up with primary care provider in 1 to 3 days and cardiology at the next available appointment. All questions and concerns addressed with the patient at discharge. Physical Exam Const: COMMON NORMALS: no acute distress and patient oriented x3 GENERAL APPEARANCE: cooperative and comfortable ORIENTATION/CONSCIOUSNESS: Yes awake, Yes oriented to person, Yes oriented to place and Yes oriented to time Chest: COMMONS NORMALS: normal inspection of the chest and normal palpation of entire chest wall CHEST: Yes Symmetrical chest wall rise Resp: COMMON NORMALS: normal respiratory effort, No retractions, No use of accessory muscles and clear to auscultation bilaterally EFFORT & INSPECTION: Yes symmetric chest movement AUSCULTATION: clear to auscultation bilaterally Cardio: COMMON NORMALS: regular rate, regular rhythm, S1 normal heart sound present, S2 normal heart sound present, No gallops present (Cardio), No clicks present (Cardio), No murmurs present (Cardio) and No rub (Cardio) RATE: regular rate RHYTHM: regular rhythm HEART SOUNDS: S1 normal heart sound present and S2 normal heart sound present PERIPHERAL PULSES: radial pulses present Extremity: COMMON NORMALS: no pedal edema Neuro: COMMON NORMALS: patient oriented x3 and moves all extremities SENSORIUM/ORIENTATION: Yes oriented to person, Yes oriented to place and Yes oriented to time Discharge Data Studies Completed and Pending Completed Studies During Hospitalization Category Date Time Status XR chest 1V portable [id number] Stat Exams 07/20/25 13:10 Completed US echo complete [CV. echo complete* [id number]] Routine Ultrasound 07/20/25 17:27 Completed Pending at discharge Category Date Time Status INGOT HEADER request for service Routine Exams 07/21/25 07:27 Taken Complete Blood Count w/Auto AM LABS Lab 07/23/25 04:00 Ordered Comprehensive Metabolic Panel AM LABS Lab 07/23/25 04:00 Ordered Magnesium AM LABS Lab 07/23/25 04:00 Ordered Radiology Impressions Chest X-Ray 07/20/25 13:10 IMPRESSION: 1. Large hiatal hernia with air-fluid level. 2. No airspace disease. Laboratory Results WBC 8.12 10^3/uL (3.29-11.43) 07/22/25 05:55 RBC 3.98 10^6/uL (3.85-5.65) 07/22/25 05:55 Hgb 11.80 g/dL (11.27-16.99) 07/22/25 05:55 Hct 35.1 % (36-47) L 07/22/25 05:55 MCV 88.2 fl (85-98) 07/22/25 05:55 MCH 29.6 pg (27-33) 07/22/25 05:55 MCHC 33.6 g/dL (30-55) 07/22/25 05:55 RDW 13.3 % (12.1-15.1) 07/22/25 05:55 Plt Count 236 10^3/cmm (157-399) 07/22/25 05:55 MPV 9.2 fL (7.4-10.4) 07/22/25 05:55 Neut % (Auto) 64.5 % 07/22/25 05:55 Lymph % (Auto) 20.9 % 07/22/25 05:55 [place] % (Auto) 10.1 % 07/22/25 05:55 Eos % (Auto) 4.1 % 07/22/25 05:55 Baso % (Auto) 0.2 % 07/22/25 05:55 Neut # (Auto) 5.23 10^3/uL (1.8-7.7) 07/22/25 05:55 Lymph # (Auto) 1.7 10^3/uL (0.8-4.8) 07/22/25 05:55 [place] # (Auto) 0.8 10^3/uL (0.2-0.9) 07/22/25 05:55 Eos # (Auto) 0.3 10^3/uL (0.0-0.8) 07/22/25 05:55 Baso # (Auto) 0.0 10^3/uL (0.0-0.1) 07/22/25 05:55 Nucleated RBC % (auto) 0 % 07/22/25 05:55 Nucleated RBCs # 0.0 /100WBC 07/22/25 05:55 Sodium 140 mmol/L (136-145) 07/22/25 05:55 Sodium Cancelled 07/22/25 05:55 Potassium 4.5 mmol/L (3.5-5.1) 07/22/25 05:55 Potassium Cancelled 07/22/25 05:55 Chloride 106 mmol/L (98-107) 07/22/25 05:55 Chloride Cancelled 07/22/25 05:55 Carbon Dioxide 23 mmol/L (22-29) 07/22/25 05:55 Carbon Dioxide Cancelled 07/22/25 05:55 Anion Gap 15.5 (5-19) 07/22/25 05:55 Anion Gap Cancelled 07/22/25 05:55 BUN 13 mg/dL (8-23) 07/22/25 05:55 BUN Cancelled 07/22/25 05:55 Creatinine 0.7 mg/dL (0.5-0.9) 07/22/25 05:55 Creatinine Cancelled 07/22/25 05:55 GFR Calculation Cancelled 07/22/25 05:55 GFR Calculation Not Reportable 07/22/25 05:55 Glucose 102 mg/dL (65-115) 07/22/25 05:55 Glucose Cancelled 07/22/25 05:55 POC Glucose 103 mg/dL (70-110) 07/22/25 06:02 Estimat Average Glucose 143 07/20/25 13:40 Hemoglobin A1c 6.6 % (4.0-6.0) H 07/20/25 13:40 Calculated Osmolality 290 mOsm/kg (285-295) 07/22/25 05:55 Calculated Osmolality Cancelled 07/22/25 05:55 Calcium 8.5 mg/dL (8.5-10.5) 07/22/25 05:55 Calcium Cancelled 07/22/25 05:55 Magnesium 2.0 mg/dL (1.7-2.3) 07/22/25 05:55 Total Bilirubin 0.4 mg/dL (0.15-1.2) 07/22/25 05:55 AST 25 U/L (0-32) 07/22/25 05:55 ALT 11 U/L (0-33) 07/22/25 05:55 Alkaline Phosphatase 67 U/L (35-105) 07/22/25 05:55 Troponin T Baseline 11 ng/L (0-10) H 07/20/25 13:40 Troponin T 120 Minute 10.02 ng/L (0-10) H 07/20/25 15:27 Delta Troponin T -0.98 ABS# (0-10) L 07/20/25 15:27 Troponin T Hi Sens 6Hr 10.16 ng/L (0-10) H 07/20/25 19:55 Troponin T Hi Sens 6Hr Delta -0.84 ng/L (0-12) L 07/20/25 19:55 Total Protein 5.9 g/dL (6.6-8.7) L 07/22/25 05:55 Albumin 3.7 g/dL (3.5-5.2) 07/22/25 05:55 Globulin 2.2 g/dL (1.3-4.6) 07/22/25 05:55 Triglycerides 347 mg/dL (0-150) H 07/20/25 13:40 Cholesterol 274 mg/dL (0-200) H 07/20/25 13:40 LDL Cholesterol, Calc 152 mg/dL (50-129) H 07/20/25 13:40 HDL Cholesterol 53 mg/dL (60-100) L 07/20/25 13:40 LDL/HDL Ratio 2.87 RATIO (0.00-3.22) 07/20/25 13:40 Cholesterol/HDL Ratio 5.17 mg/dL (0.0-4.40) H 07/20/25 13:40 TSH 4.34 uIU/mL (0.27-4.20) H 07/20/25 13:40 Vitals Last Vital Signs Temp 98.0 F 07/22/25 07:39 Pulse 66 07/22/25 07:39 Resp 20 H 07/22/25 07:39 BP 103/45 07/22/25 07:39 Pulse Ox 97 07/22/25 07:39 O2 Del Method Room Air 07/22/25 04:00 Discharge Plan Discharge Patient Disposition: Home Condition: Stable Prescriptions: New aspirin 81 mg Tablet,Delayed Release (Dr/Ec) 81 mg PO DAILY 90 Days Qty: 90 0RF clopidogrel 75 mg Tablet 75 mg PO DAILY 90 Days Qty: 90 0RF atorvastatin 40 mg Tablet 80 mg PO DAILY 90 Days Qty: 90 0RF Continued estradiol 0.01 % (0.1 mg/gram) cream See Rx Instructions .ROUTE .COMPLEX Qty: 42.5 3RF Dose Instruction: APPLY 1 APPLICATORFUL VAGINALLY DAILY FOR 14 DAYS, THEN 1 APPLICATORFUL TWICE WEEKLY Rx Instructions: APPLY 1 APPLICATORFUL VAGINALLY DAILY FOR 14 DAYS, THEN 1 APPLICATORFUL TWICE WEEKLY NEEDED. (DME) blood sugar diagnostic Strip See Rx Instructions .Route Qty: 50 5RF Rx Instructions: As directed (DME) blood-glucose meter Kit See Rx Instructions .Route Qty: 1 0RF Rx Instructions: As directed (DME) Chava Aerosol [place] Enhancer Spacer See Rx Instructions .Route Qty: 1 0RF Rx Instructions: As directed nitroglycerin 0.4 mg tablet, sublingual 0.4 mg sublingual Q5M PRN (Reason: chest pain) Qty: 25 2RF Rx Instructions: do not exceed 3 doses per episode (DME) OneTouch Verio test strips Strip See Rx Instructions .ROUTE .COMPLEX Qty: 50 5RF Dose Instruction: USE 1 STRIP TO CHECK GLUCOSE ONCE DAILY Rx Instructions: USE 1 STRIP TO CHECK GLUCOSE ONCE DAILY valsartan 80 mg tablet 80 mg PO DAILY 30 Days Qty: 30 1RF levothyroxine 25 mcg tablet 25 mcg PO QAM Januvia 25 mg tablet 25 mg PO DAILY levocetirizine 5 mg tablet 5 mg PO DAILY PRN (Reason: allergies) Discontinued pravastatin 80 mg tablet 80 mg PO DAILY Qty: 90 3RF clopidogrel 75 mg tablet See Rx Instructions .ROUTE .COMPLEX Qty: 30 2RF Dose Instruction: Take 1 tablet by mouth once daily Rx Instructions: Take 1 tablet by mouth once daily Referrals: SANJAY Frye FNP [Primary Care Provider, Family Practice] - 07/29/25 1:45 pm Sammie Tovar FNP [Nurse Practitioner, Cardiology] - 08/10/25 4:00 pm Patient Instructions: Angina, Aspirin (By mouth), Atorvastatin (By mouth), Clopidogrel (By mouth), Hypothyroidism, Coronary Angioplasty (DC), Opioid Safety, Patient Portal & Dotty Instructions Discharge Attestations Time Spent in Discharge Care*: greater than 30 min Quality Metrics Clinical Quality Measures [ No reported AMI, CVA or VTE this stay] Coding Level of Care Code 66216 Diagnoses Unstable angina I20.0 Coronary artery disease of [place] artery of [place] heart with stable angina pectoris I25.118 Associated angina: with stable angina Coronary Disease-Associated Artery/Lesion type: [place] artery [place] vs. transplanted heart: [place] heart Mixed hyperlipidemia E78.2
--- NOTE | 2025-07-22 09:29 | P.PN_ITS ---
<Statement entered by Lon Woodard MD - 07/22/25 17:39> Patient was evaluated and cared for in conjunction with an advanced practice practitioner. I personally saw the patient and reviewed the chart and all pertinent data. I discussed the patient in detail with the advanced practice practitioner. Please see their note for complete assessment and agreed upon plan of care for the patient. Subjective 2 Subjective: She has done well overnight, status post stents x 3 to the LAD. No chest pain or shortness of breath. No complications with right femoral cath site. She has been ambulating without difficulty. She can discharge home today. Vitals/I&O/Wt Last Vital Signs Temp 98.0 F 07/22/25 07:39 Pulse 64 07/22/25 08:00 Resp 20 H 07/22/25 07:39 BP 109/47 07/22/25 08:00 Pulse Ox 97 07/22/25 07:39 O2 Del Method Room Air 07/22/25 04:00 07/21/25 07/22/25 07/22/25 22:59 06:59 14:59 Intake Total 1000 / 1000 Balance 1000 / 1000 Weight last 48 hrs Weight 146 lb 9.718 oz Weight 142 lb 7 oz Weight 143 lb 3 oz Weight 142 lb Physical Exam 2 Const: COMMON NORMALS: no acute distress and patient oriented x3 GENERAL APPEARANCE: cooperative ORIENTATION/CONSCIOUSNESS: Yes awake, Yes oriented to person, Yes oriented to place and Yes oriented to time Chest: COMMONS NORMALS: normal inspection of the chest and normal palpation of entire chest wall CHEST: Yes Symmetrical chest wall rise Resp: COMMON NORMALS: normal respiratory effort, No retractions, No use of accessory muscles and clear to auscultation bilaterally AUSCULTATION: clear to auscultation bilaterally Cardio: COMMON NORMALS: regular rate, regular rhythm, S1 normal heart sound present, S2 normal heart sound present, No gallops present (Cardio), No clicks present (Cardio), No murmurs present (Cardio) and No rub (Cardio) RATE: r egular rate RHYTHM: regular rhythm HEART SOUNDS: S1 normal heart sound present and S2 normal heart sound present PERIPHERAL PULSES: radial pulses present positive right 2+ and femoral pulses present positive right 2+ Neuro: COMMON NORMALS: patient oriented x3 and moves all extremities S ENSORIUM/ORIENTATION: Yes oriented to person, Yes oriented to place and Yes oriented to time Skin: WOUNDS: Yes surgical site (no hematoma palpable) Details: no odor Data 07/22/25 05:55 07/22/25 05:55 A&P Assessment and plan 1. Unstable angina: 2. CAD (coronary artery disease): 3. Mixed hyperlipidemia: Plan: Discharge home today on aspirin, Plavix, atorvastatin, valsartan, and her other home medications. Follow-up in the cardiology clinic in 2 weeks. PDMP PDMP Reviewed: Not Reviewed Attestations 2 Medical Necessity Statement*: dc today Coding Level of Care Code Acute Code for Chg Fwd Diagnoses Unstable angina I20.0 CAD (coronary artery disease) I25.10 Mixed hyperlipidemia E78.2
--- NOTE | 2025-07-22 10:25 | PC.CHAP ---
Pastoral Care Encounter/Spiritual Assessment Type of Contact [] Declined coke handling supervisor visit [] Patient/Family/Request visit [] Outpatient visit [] Follow-up visit [] Physician referral [] Code/Alert [x] Routine visit [] Staff referral [] Actively dying [] Patient sleeping [] Family support [] [] Out of room [] Palliative care [] [] Receiving care in room [] Pre-surgical visit [] Trauma [] Long length of stay [] ICU visit [] Other: Relational/Emotional Strength [x] Patient feels connected with others/family/visitors/staff [] Distress [] Loneliness/isolation [] Abandonment Spirituality of Patient [x] Person of Elizabeth [] Attends Zoroastrianism of their Elizabeth [x] Believes in Prayer [] Reads Bible or Mormonism materials [] There are Spiritual issues to be addressed Microcomputer Technician Interventions [x] Prayer [x] Active listening [] Non-anxious presence [x] Spiritual/emotional support [] Crisis/trauma care [] Spiritual counseling [] Bereavement support [] Provided bereavement packet [] Provided Bible/devotional materials [] Provided toy/stuffed animal, coloring book to patient or family member [] Provided Communion [] Anointing/[place] [] Salvation [x] Completed spiritual assessment [] Other: Impact on Illness or Injury [] Angry [] Fearful [] Anxious [] Often cries [] Exhaustion [] Unable to work [] Unable to attend holiness [] Unable to walk/stand [] Unable to read [] Unable to drive [] Unable to eat/drink [] Unable to sleep [] Unable to be with family [] Patient intubated [] Other: Summary Time spent with patient 5 min
--- OUTSIDE RECORDS SUMMARY | 2025-07-28 15:59 | XMS_ITS | Encounter Summary ---
Author Organization [facility] Address [address] [place] [address] Care Team Providers Care Publishing Agent Name Role Phone Be Frye APRN Primary Care Provider [phone] Encounter Details Date Type Department Care Team (Latest Contact Info) Description 07/10/2002 Outpatient Historical [facility] [address] [place] [address] Non-Staff, Physician NO ADDRESS ON FILE DIZZINESS AND GIDDINESS (Primary Dx) Social History Tobacco Use Types Packs/Day Years Used Date Smoking Tobacco: Never Assessed Comments Unknown Sex and Gender Information Value Date Recorded Sex Assigned at Not on file Legal Sex Female 6:10 AM DIRECTOR AGENCY & STRATEGIC PARTNERSHIPS Gender Identity Not on file Sexual Orientation Not on file documented as of this encounter Plan of Treatment Not on file documented as of this encounter Visit Diagnoses Diagnosis Dizziness and giddiness- Primary documented in this encounter Care Teams Publishing Agent Relationship Specialty Start Date End Date Be Frye APRN PCP - General Nurse Practitioner Family 05/09/19 documented as of this encounter
--- OUTSIDE RECORDS SUMMARY | 2025-07-28 15:59 | XMS_ITS | Clinical Summary ---
Author Organization [facility] Address [address] [facility] [address] [place] [address] Phone Care Team Providers Care Tobacco Grower Name Role Phone Uday Be MURDOCK Primary Care Provider [phone] Allergies Active Allergy Reactions Criticality Noted Date Comments Penicillins Anaphylaxis High 03/25/2013 Medications clopidogrel (PLAVIX) 75 mg Oral Tab Take 75 mg by mouth daily. Active levothyroxine 50 mcg Oral tablet Take 50 mcg by mouth daily compound mixer. Active aspirin (ECOTRIN EC) 81 mg Tablet, [...] insulin 01/26/2017 Mixed hyperlipidemia 01/26/2017 Atherosclerosis of [place] co ronary artery of [place] heart with unstable angina pectoris 01/26/2017 Acquired hypothyroidism 01/26/2017 Social History Tobacco Use Types Packs/Day Years Used Date Smoking Tobacco: Never Smokeless Tobacco: Never Alcohol Use Standard Drinks/Week Comments No 0 (1 standard drink = 0.6 oz pur e alcohol) Comments No Sex and Gender Information Value Date Recorded Sex Assigned at Not on file Legal Sex Female 6:10 AM RADIOCHEMICAL TECHNICIAN Gender Identity Not on file Sexual Orientation [...] INFLUENZA VACCINE (#1) 2025 Insurance DUAL COMPLETE Advance Directives For more information, please contact: [phone] * Full Code (Latest Code Status on File) Date Activated Date Inactivated Comments 01/26/2017 4:09 PM 01/27/2017 7:22 PM Care Teams Tobacco Grower Relationship Specialty Start Date End Date Be Frye APRN PCP - General Nurse Practitioner Family 05/09/19
== END 2025-07-22 10:43 | disposition home or self-care (01) ==
LOC: ER 13:51 → CSU 16:03
PROVIDERS: Internal Medicine; Admitting Provider Family Medicine; Emergency Provider Family Medicine; PCP Nurse Practitioner Family; Visit Provider Registered Nurse
DX: I25.118 Atherosclerotic heart disease of native coronary artery with other forms of angina pectoris (principal); I25.82 Chronic total occlusion of coronary artery; E78.2 Mixed hyperlipidemia; E11.59 Type 2 diabetes mellitus with other circulatory complications; Z79.02 Long term (current) use of antithrombotics/antiplatelets; E11.9 Type 2 diabetes mellitus without complications; I10 Essential (primary) hypertension; F41.8 Other specified anxiety disorders; E03.9 Hypothyroidism, unspecified; Z95.5 Presence of coronary angioplasty implant and graft
CPT/HCPCS: 36415; 36416; 71045; 80053; 80061; 82962; 83036; 83735; 84443; 84484; 85025; 85347; 92978; 93005; 93306; 93454; 96372; 99152; 99153; 99285; C1725; C1753; C1760; C1769; C1874; C1887; C1894; C9600; G0269; G0378; J1644; J1650; J1815; J2250; J2405; J2470; J3010; J3490; J7030; J9999; Q0163; Q9967

== ENCOUNTER 2025-07-27 10:32 | Observation (INO) | payer MEDICARE, SELFPAY ==
--- OUTSIDE RECORDS SUMMARY | 2025-07-24 14:43 | XMS_ITS | Encounter Summary ---
Author Organization [facility] Address [address] [place] [address] Care Team Providers Care Kennel Staff Member Name Role Phone Be Frye APRN Primary Care Provider [phone] Reason for Visit * Reason Comments Chest Pain Encounter Details Date Type Department Care Team (Late st Contact Info) Description 07/24/2025 2:43 PM [facility] - 07/24/2025 6:06 PM [facility] Emergency [facility] Emergency Medicine [address] [place] [address] Wyatt Salinas, [address] [place] [id number] Chest pain, unspecified type (Primary Dx) Discharge Disposition: Home or Self Care Social History Tobacco Use Types Packs/Day Years Used Date Smoking Tobacco: Never Smokeless Tobacco: Never Alcohol Use Standard Drinks/Week Comments No 0 (1 standard drink = 0.6 oz pur e alcohol) Food Insecurity Answer Date Recorded Do you find you are eating l ess than you should because you can t pay for food? No 07/24/2025 Transportation Needs Answer Date Record ed Have you gone without health care because you didn t have a way to get there? Or worry about transportation for future doctor visits, picker tender helper medication, etc.? No 2024 Housing Stability Answer Date Recorded Do you worry you won t have a steady place to sleep or struggle to pay rent or mortgage? No 07/24/2025 Utility Needs Answer Date Recorded Do you have difficulty payin g for utility costs (electric, water or gas bills)? No 07/24/2025 Medication Needs Answer Date Recorded Have you skipped taking medi cation due to cost or worry you can t afford new medications? No 07/24/2025 Feeling Safe Answer Date Recorded Are you in a relationship wi th someone who hurts you emotionally and/or physically? No 07/24/2025 Comments No Sex and Gender Information Value Date Recorded Sex Assigned at Not on file Legal Sex Female 11:31 AM [facility] Gender Identity Not on file Sexual Orientation Not on file documented as of this encounter Last Filed Vital Signs Vital Sign Reading Time Taken Comments Blood Pressure 102/56 07/24/2025 5:30 PM [facility] Pulse 62 07/24/2025 5:30 PM [facility] Temperature 36.3 C (97.3 F) 07/24/2025 2:43 PM [facility] Respiratory Rate 18 07/24/2025 5:30 PM [facility] Oxygen Saturation 97% 07/24/2025 5:30 PM [facility] Inhaled Oxygen Concentration - - Weight 65.1 kg (143 lb 9.6 oz) 07/24/2025 2:43 P M [facility] Height 162.6 cm (5' 4 ) 07/24/2025 2:43 PM [facility] Body Mass Index 24.65 07/24/2025 2:43 PM [facility] documented in this encounter Discharge Instructions * Discharge Instructions* Wyatt Salinas DO - 07/24/2025 5:45 PM [facility] You were evaluated today in the ER for your chest pain. Your lab work was unremarkable as well as your EKG did not show any acute signs of cardiac dysfunction. Please continue to take your Plavix andaspirin as previously directed. Please follow-up with your family practice physician and/or cardiolo gist within next 7 days as needed, if your chest pain returns please feel free to return to the ER. [facility] * Attachments The following attachments cannot be sent through Care Everywhere. * Chest Pain (Turkmen) documented in this encounter Medications at Time of Discharge aspirin (ANKITA CHEWABLE) 81 mg Tablet, Chewable Take 81 mg by mouth daily. SITagliptin phosphate (JANUVIA) 25 mg Tablet Take 25 mg by mouth daily with breakfast. valsartan (DIOVAN) 160 mg tablet Take 80 mg by mouth daily. pantoprazole sodium (PROTONIX ORAL) Take by mouth. pravastatin (PRAVACHOL) 80 mg tablet Take 80 mg by mouth daily with supper. clopidogreL (PLAVIX) 75 mg Tablet Take 75 mg by mouth daily. levothyroxine 50 mcg tablet Take 50 mcg by mouth daily in the morning. documented as of this encounter Progress Notes * Russ Matos RCP - 07/24/2025 3:00 PM CST EKG completed. Results given to Dr. Salinas and scanned into [employer]. [facility] documented in this encounter ED Notes * Mi Flood RN - 07/24/2025 2:43 PM CST Patient arrives by private vehicle. Ambulates slowly into room. 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 Patient complains of mid sternal chest pressure with no radiation. States started at 1245 today while walking [employer] shopping. Patient states that she did get slightly short of breath and diaphoretic with thechest pain but no nausea. Patient takes an aspirin 81 mg and plavix 75 mg daily and has had a dose today. States she has chest pressure episodes for awhile now resulting in getting 3 heart stents on Saturday at [facility] by Cardiology DR Kothari. Patient states she had 3 heart stents in the same place 20 years ago. [facility] * Mi Flood RN - 07/24/2025 2:43 PM CST RT at bedside [facility] * Wyatt Salinas DO - 07/24/2025 2:40 PM CSTAssociated Order(s): EKG 07/24/25 2:58 PM HISTORY OF PRESENT ILLNESS History of Present Illness The patient presents for evaluation of chest pressure. She experienced an episode of chest pressure and near syncope today, which prompted her to seek emergency care. She has a history of cardiac stent placement, with the most recent procedure performed by Dr. Kothari at [place]. The initial plan was to have the stents placed on 08/10/2025, but dueto the unavailability of the physician, and the patient experienced chest pain she was seen in the ER at [place] the procedure was expedited. Patient says she did not have a heart attack however her enzymes were elevated despite the absence of a myocardial infarction, as per the medical team, she suspects otherwise due to elevated blood levels. She also reports widespread bruising. Additionally, she has a history of three other stents placed approximately 20 years ago. Patient does take an 81 mg aspirin and a 75 mg Plavix daily. PAST SURGICAL HISTORY: - Cardiac stent placement approximately 20 years ago - Recent cardiac stent placement on 08/2025 PAST MEDICAL HISTORY REVIEWED MEDICAL: Patient has a past medical history of Anxiety, CAD (coronary artery disease), Diabetes mellitus (CMS/HCC), HTN (hypertension), Hyperlipidemia, and Hypothyroidism. SURGICAL: Patient has a past surgical history that includes coronary stent placement (2005); hysterectomy; hemorrhoidectomy; tonsillectomy; appendectomy; pr xcapsl ctrc rmvl insj io lens prosth w/o ecp (Right,11/22/2021); pr xcapsl ctrc rmvl insj io lens prosth w/o ecp (Left, 12/27/2021); and ptca. ALLERGIES Penicillins PHYSICAL EXAM INITIAL VS BP: (!) 197/88 (07/24/25 144), Heart Rate: 91 bpm (07/24/25 144), Resp: 20 (07/24/251442), Pulse: 91 (07/24/25 144), Temp: 97.3 ??F (36.3 ??C) (07/24/251442), Temp src: Temporal (07/24/251442),SpO2: 99 % (07/24/251442), Height: 5' 4 (162.6 cm) (07/24/251442), Weight: 65.1 kg (143 lb 9.6 oz) (07/24/25 144), BMI (Calculated): 24.62 (07/24/251442) No LMP recorded. Patient is postmenopausal. Blood pressure 136/65, pulse 60, temperature 97.3 ??F (36.3 ??C), temperature source Temporal, resp. rate 14, height 5' 4 (1.626 m), weight 65.1 kg (143 lb 9.6 oz), SpO2 99%, not currently . Physical Exam Vitals and nursing note reviewed. Constitutional: Appearance: Normal appearance. She is normal weight. HENT: Head: Normocephalic and atraumatic. Nose: Nose normal. Mouth/Throat: Mouth: Mucous membranes are moist. Pharynx: Oropharynx is clear. No oropharyngeal exudate or posterior oropharyngeal erythema. Eyes: Extraocular Movements: Extraocular movements intact. Conjunctiva/sclera: Conjunctivae normal. Pupils: Pupils are equal, round, and reactive to light. Cardiovascular: Rate and Rhythm: Normal rate and regular rhythm. Heart sounds: No murmur heard. No friction rub. No gallop. Pulmonary: Effort: Pulmonary effort is normal. No respiratory distress. Breath sounds: No wheezing, rhonchi or rales. Abdominal: General: Abdomen is flat. There is no distension. Palpations: Abdomen is soft. There is no mass. Tenderness: There is no abdominal tenderness. There is no guarding. Musculoskeletal: General: Normal range of motion. Cervical back: Normal range of motion and neck supple. No rigidity or tenderness. Lymphadenopathy: Cervical: No cervical adenopathy. Skin: General: Skin is warm and dry. Neurological: General: No focal deficit present. Mental Status: She is alert and oriented to person, place, and time. Psychiatric: Mood and Affect: Mood normal. Behavior: Behavior normal. Thought Content: Thought content normal. Physical Exam Other: Blood pressure is 102/56. DIAGNOSTICS LAB: TROPONIN BASELINE, 5TH GEN - Abnormal Result Value TROPONIN T, BASELINE 5TH GEN 280 (*) TROPONIN 2 HR, 5TH GEN - Abnormal TROPONIN T, 2 HR 5TH GEN 279 (*) DELTA 2HR TROPONIN T % 0 CBC WITH DIFFERENTIAL - Abnormal WBC 6.7 RBC 4.40 HEMOGLOBIN 13.2 HEMATOCRIT 37.8 MCV 85.9 MCH 30.0 MCHC 34.9 RDW 13.2 RDW-STDEV 41.1 PLATELETS 258 MPV 9.0 (*) NEUTROPHILS 65 LYMPHOCYTES 18 (*) MONOCYTES 9 EOSINOPHILS 7 (*) BASOPHILS 1 IMMATURE GRANULOCYTES 1 NEUTROPHIL ABSOLUTE 4.37 LYMPHOCYTE ABSOLUTE 1.21 MONOCYTE ABSOLUTE 0.63 (*) EOSINOPHIL ABSOLUTE 0.44 (*) BASOPHILS ABSOLUTE 0.05 IMMATURE GRANULOCYTES ABSOLUTE 0.04 COMPREHENSIVE METABOLIC PANEL - Abnormal SODIUM 138 POTASSIUM 3.7 CHLORIDE 101 CO2 25 CALCIUM 9.9 BUN 17 CREATININE 0.94 GLUCOSE 158 (*) TOTAL PROTEIN 7.4 ALBUMIN 4.5 BILIRUBIN TOTAL 0.5 ALKALINE PHOSPHATASE 87 AST 27 ALT 18 GFR >60 ANION GAP 12 EXTRA TUBE EXTRA TUBE (BLUE) RADIOLOGY: No orders to display EKG: Results Diagnostic Testing - EKG: Normal Results independently interpreted by Wyatt Salinas DO PROCEDURES EKG Date/Time: 07/24/2025 2:47 PM Performed by: Wyatt Salinas DO Authorized by: Wyatt Salinas DO Rate: ECG rate: 85 ECG rate assessment: age appropriate Rhythm: Rhythm Origin: sinus Rhythm morphology: narrow [place]: QRS axis: Normal Intervals: normal QRSTT: QRSTT changes: No MEDICAL DECISION MAKING AND PLAN OF CARE Assessment & Plan 1. Chest pressure: - Experienced chest pressure and near syncope on Saturday. History of stent placements, with the most recent ones done at the emergency room due to worsening symptoms. - EKG results are within normal limits. - A comprehensive workup will be conducted to evaluate her current condition, including checking ifthe blood levels are still high post-stent placement. - If the levels remain high, it may not necessarily indicate a bad outcome, but if they are increasing, it could be a concern. Medical Decision Making Medical Decision Making: Summary: Patient presents to the ER complaining of chest pressure with exertion while shopping. Upon arrival here the pressure had went away but patient has had 3 stents [address] Becker andJulian Tom. EKG was normal sinus rhythm with no ST changes, initial troponin was 280 but 2-hour troponin was 279. Patient remained chest pain-free. Patient will be discharged home and is to return if she has more chest pressure or is to follow-up with her family practice doctor or surgical scrub technologist within the next 7 days as needed. Differential diagnosis includes, but is not limited to, chest pain,. By virtue of history and physical, some of these diagnoses can be excluded. Imaging was interpreted by me and notable none Non-ED notes reviewed: None Additional information obtained from independent historian, None, none. The following social determinants of health potentially complicated the patient's course and were considered in my plan of care: None. Amount and/or Complexity of Data Reviewed Labs: ordered. Details: Initial troponin 289, 2-hour troponin, 279, otherwise unremarkable ECG/medicine tests: ordered and independent interpretation performed. Details: Normal sinus rhythm Risk Prescription drug management. Clinical Scoring & Consults Medications Administered During the ED Stay from 07/24/2025 1441 to 07/24/2025 1746 Date/Time Order Dose Route Action 07/24/2025 1500 C[facility] sodium chloride flush injection 10 mL 10 mL IV Given 07/24/2025 1515 CUT [facility] metoprolol (LOPRESSOR) 5 mg/5 mL injection 5 mg 5 mg IV Not Given . New Prescriptions for this Encounter LAST VS BP: 136/65 (07/24/25 170), Heart Rate: 62 bpm (07/24/251699), Resp: 14 (07/24/251699), Pulse: 60(07/24/25 170), Temp: 97.3 ??F (36.3 ??C) (07/24/251442), Temp src: Temporal (07/24/251442), SpO2: 99 % (07/24/251699) CLINICAL IMPRESSION Diagnosis Diagnosis Comment Added By Time Added Chest pain, unspecified type [R07.9] Wyatt Salinas DO 07/24/2025 5:45 PM DISPOSITION, EDUCATION AND MEDICATION RECONCILIATION Medications reconciled. See after visit summary for patient education on discharged patients. ED Disposition ED Disposition Discharge Condition Stable User Wyatt Salinas DO Date/Time Sat Jul 24, 2025 5:44 PM Comment -- [facility] documented in this encounter Plan of Treatment Not on file documented as of this encounter Procedures Procedure Name Priority Date/Time Associated Diagnosis Comments TELEMETRY REPORT 07/26/2025 12:1 7 PM C[facility] TROPONIN 2 HR, 5TH GEN Timed Study 07/24/2025 4:50 PM [facility] EXTRA TUBE (BLUE) Stat 07/24/2025 3:0 0 PM C[facility] EXTRA TUBE Stat 07/24/2025 3:00 PM C[facility] TROPONIN BASELINE, 5TH GEN Stat 07/24/2025 3:00 PM C[facility] CBC WITH DIFFERENTIAL Stat 07/24/2025 3:00 PM C[facility] COMPREHENSIVE METABOLIC PANEL Stat 07/24/2025 3:00 PM [facility] EKG 12-LEAD Stat 07/24/2025 2:47 PM [facility] OXYGEN VIA DEVICE TO KEEP O2 SAT ABOVE Stat 07/24/2025 2:43 PM C[facility] documented in this encounter Results * TELEMETRY REPORT (07/26/2025 12:17 PM CUT [facility]) us Provider Scanning ECG ORDERABLES Final Result * (ABNORMAL) TROPONIN 2 HR, 5TH GEN (07/24/2025 4:50 PM CUT [facility]) TROPONIN T, 2 HR 5TH GEN 279(HH) <=10 ng/L 07/24/2025 5:20 PM C[facility] DELTA 2HR TROPONIN T % 0 See Interp. % 07/24/2025 5:20 PM C[facility] Blood Venipuncture / Unknown 07/24/2025 4:50 PM [facility] 07/24/2025 4:58 PM C[facility] Narrative [facility] - 07/24/2025 5:20 PM C[facility] Troponin elevated. Delta not changing. us Wyatt Salinas DO CHEMISTRY ORDERABLES Final Resul t [facility] CLIA # [id number] [address] [place] [id number] * EXTRA TUBE (BLUE) (07/24/2025 3:00 PM C[facility]) Blood Venipuncture / Unknown 07/24/2025 3:00 PM [facility] 07/24/2025 3:04 PM C[facility] us Wyatt Salinas DO HEMATOLOGY ORDERABLES Final Resu lt [facility] CLIA # [id number] [address] [place] [address] [phone] * (ABNORMAL) COMPREHENSIVE METABOLIC PANEL (07/24/2025 3:00 PM CUT [facility]) SODIUM 138 136 - 145 mmol/L 07/24/2025 3:26 PM [facility] POTASSIUM 3.7 3.5 - 5.1 mmol/L 07/24/2025 3:26 PM [facility] CHLORIDE 101 98 - 107 mmol/L 07/24/2025 3:26 PM [facility] CO2 25 22 - 29 mmol/L 07/24/2025 3:26 PM [facility] CALCIUM 9.9 8.8 - 10.2 mg/dL 07/24/2025 3:26 PM [facility] BUN 17 8 - 23 mg/dL 07/24/2025 3:26 PM [facility] CREATININE 0.94 0.51 - 0.95 mg/dL 07/24/2025 3:26 PM [facility] Comment:The GFR result is no t clinically significant on patients <18 or >70 years of age. GLUCOSE 158(H) 74 - 99 mg/dL 07/24/2025 3:26 PM [facility] TOTAL PROTEIN 7.4 6.6 - 8.7 g/dL 07/24/2025 3:26 PM [facility] ALBUMIN 4.5 3.5 - 5.2 g/dL 07/24/2025 3:26 PM [facility] BILIRUBIN TOTAL 0.5 0.0 - 1.2 mg/dL 07/24/2025 3:26 PM [facility] ALKALINE PHOSPHATASE 87 35 - 104 U/L 07/24/2025 3:26 PM [facility] AST 27 0 - 35 U/L 07/24/2025 3:26 PM [facility] ALT 18 0 - 35 U/L 07/24/2025 3:26 PM [facility] GFR >60 mL/min/1.7 3 sq meter 07/24/2025 3:26 PM [facility] Comment:eGFR calculated with 2020 CKD-EPI equation. Vegetarian diet, extremely high or low muscle mass, and may affect results. Cystatin C with Glomerular Filtration Rate is a suitable alternative for these patients. ANION GAP 12 5 - 20 mmol/L 07/24/2025 3:26 PM [facility] Blood Venipuncture / Unknown 07/24/2025 3:00 PM [facility] 07/24/2025 3:04 PM CUT [facility] us Wyatt Salinas DO CHEMISTRY ORDERABLES Final Resul t [facility] CLIA # [id number] [address] [place] [address] [phone] * (ABNORMAL) CBC WITH DIFFERENTIAL (07/24/2025 3:00 PM CUT [facility]) WBC 6.7 4.0 - 10.0 K/uL 07/24/2025 3:12 PM [facility] RBC 4.40 3.93 - 5.22 M/uL 07/24/2025 3:12 PM [facility] HEMOGLOBIN 13.2 11.2 - 15.7 g/dL 07/24/2025 3:12 PM [facility] HEMATOCRIT 37.8 34.1 - 44.9 % 07/24/2025 3:12 PM [facility] MCV 85.9 79.4 - 94.8 fL 07/24/2025 3:12 PM [facility] MCH 30.0 25.6 - 32.2 pg 07/24/2025 3:12 PM [facility] MCHC 34.9 32.2 - 35.5 g/dL 07/24/2025 3:12 PM [facility] RDW 13.2 11.0 - 14.5 % 07/24/2025 3:12 PM [facility] RDW-STDEV 41.1 36.9 - 56.9 fL 07/24/2025 3:12 PM [facility] PLATELETS 258 163 - 337 K/uL 07/24/2025 3:12 PM [facility] MPV 9.0(L) 10.0 - 14.8 fL 07/24/2025 3:12 PM [facility] NEUTROPHILS 65 34 - 71 % 07/24/2025 3:12 PM [facility] LYMPHOCYTES 18(L) 19 - 52 % 07/24/2025 3:12 PM [facility] MONOCYTES 9 5 - 13 % 07/24/2025 3:12 PM [facility] EOSINOPHILS 7(H) 1 - 6 % 07/24/2025 3:12 PM [facility] BASOPHILS 1 0 - 1 % 07/24/2025 3:12 PM [facility] IMMATURE GRANULOCYTES 1 % 07/24/2025 3:12 PM [facility] NEUTROPHIL ABSOLUTE 4.37 1.56 - 6.13 K/uL 07/24/2025 3:12 PM [facility] LYMPHOCYTE ABSOLUTE 1.21 1.20 - 3.40 K/uL 07/24/2025 3:12 PM [facility] MONOCYTE ABSOLUTE 0.63(H) 0.24 - 0.36 K/uL 07/24/2025 3:12 PM [facility] EOSINOPHIL ABSOLUTE 0.44(H) 0.04 - 0.36 K/uL 07/24/2025 3:12 PM [facility] BASOPHILS ABSOLUTE 0.05 0.01 - 0.08 K/uL 07/24/2025 3:12 PM [facility] IMMATURE GRANULOCYTES ABSOLUTE 0.04 K/uL 07/24/2025 3:12 PM [facility] Blood Venipuncture / Unknown 07/24/2025 3:00 PM [facility] 07/24/2025 3:04 PM C[facility] us Wyatt Salinas DO HEMATOLOGY ORDERABLES Final Resu lt [facility] CLIA # [id number] [address] [place] [phone] * (ABNORMAL) TROPONIN BASELINE, 5TH GEN (07/24/2025 3:00 PM CUT [facility]) TROPONIN T, BASELINE 5TH GEN 280(HH) <=10 ng/L 07/24/2025 3:27 PM C[facility] Blood Venipuncture / Unknown 07/24/2025 3:00 PM C[facility] 07/24/2025 3:04 PM C[facility] Narrative [facility] - 07/24/2025 3:27 PM CUT [facility] Troponin elevated. Wyatt Salinas DO CHEMISTRY ORDERABLES Final Resul t [facility] CLIA # [id number] [address] [place] [id number] * EKG (07/24/2025 2:47 PM CUT [facility]) Narrative Wyatt Salinas DO - 07/24/2025 2:47 PM CUT [facility] Wyatt Salinas DO 07/24/2025 5:46 PM EKG Date/Time: 07/24/2025 2:47 PM Performed by: Wyatt Salinas DO Authorized by: Wyatt Salinas DO Rate: ECG rate: 85 ECG rate assessment: age appropriate Rhythm: Rhythm Origin: sinus Rhythm morphology: narrow [place]: QRS axis: Normal Intervals: normal QRSTT: QRSTT changes: No Wyatt Salinas DO ECG ORDERABLES Final Result documented in this encounter Visit Diagnoses Diagnosis Chest pain, unspecified type- Primary documented in this encounter Administered Medications Inactive Administered Medications - up to 3 most recent administrations Medication Order MAR Action Action Date Dose Rate Site sodium chloride flush injection 10 mL 10 mL, IV, SEE ADMIN INSTRUCTIONS, Starting on 07/24/25 at 1443, Until 07/24/25 at 2009, Stat Given 07/24/2025 3:00 PM CUT [facility] 10 mL documented in this encounter Active and Recently Administered Medications Times are shown in CUT [facility]. Scheduled Medication Order 07/22/2025 07/23/2025 07/24/2025 metoprolol (LOPRESSOR) 5 mg/5 mL injection 5 mg 5 mg, IV, ONE TIME ONLY, 1 dose, On 07/24/25 at 1515, Stat 1515 (Not Given - Pr ovider: Mi Flood RN - Reason: Other - See Comment - Comment: blood pressure 143/71. DR Salinas notified and to hold metoprolol) sodium chloride flush injection 10 mL 10 mL, IV, SEE ADMIN INSTRUCTIONS, Starting on 07/24/25 at 1443, Until 07/24/25 at 2009, Stat 1500 (Given - Provid er: Mi Flood, KRISTIN) documented in this encounter Care Teams Kennel Staff Member Relationship Specialty Start Date End Date Be Frye APRN PCP - General Nurse Practitioner Family 05/09/19 documented as of this encounter
[2025-07-27] VITALS (11 sets, daily range): BP systolic 101–175; BP diastolic 47–83; PULSE 61–75; RESP 13–22; TEMP 36.4–36.8; O2SAT 97–100; BMI 25.0
--- NOTE | 2025-07-27 10:37 | XR_ITS ---
WS: [id number] XR chest 1V portable [id number] REASON FOR EXAM: dyspnea/cough FINDINGS: The chest is unchanged compared to 07/20/2025. Moderate tortuosity and ectasia of the ascending and descending thoracic aorta with calcification of the aortic arch. Large hiatal hernia. No significant cardiomegaly. Coronary artery stent. Calcified granulomas disease bilaterally. No acute pulmonary parenchymal or pleural abnormality is identified. XR/XR chest 1V portable [id number] IMPRESSION: Stable chest with no acute abnormality.
--- NOTE | 2025-07-27 10:41 | ECG_ITS ---
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 Measurements Intervals [place] Rate: 69 P: 30 ND: 164 QRS: 31 QRSD: 83 T: 69 QT: 320 QTc: 343 Interpretive Statements SINUS RHYTHM NONSPECIFIC T-WAVE ABNORMALITY Compared to ECG 07/20/2025 20:23:45 T-wave abnormality now present Electronically Signed On 07-28-2025 08:52:24 HEAD OF HISTORY by Rambo Pete M.D. [email or web address]
--- NOTE | 2025-07-27 10:49 | W.ED.CHESTPA ---
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 She has been taking her clopidogrel regularly. No fever sweats or chills. Associated symptoms: Deny abdominal pain, dyspnea or fever(s) Related Data Home Medications ?Medication ?Instructions ?Recorded ?Confirmed levocetirizine 5 mg tablet 5 mg PO DAILY PRN allergies 07/20/25 07/29/25 levothyroxine 25 mcg tablet 25 mcg PO QAM 07/20/25 07/29/25 sitagliptin phosphate 25 mg tablet 25 mg PO DAILY 07/20/25 07/29/25 (Januvia) atorvastatin 80 mg tablet 80 mg PO QDAY 07/29/25 07/29/25 valsartan 80 mg tablet mg PO 07/29/25 07/29/25 Previous Rx's ?Medication ?Instructions ?Recorded blood sugar diagnostic #50 ea 04/17/22 blood-glucose meter #1 ea 04/17/22 inhalational spacing device (Chava #1 ea 10/04/23 Aerosol [place] Enhancer spacer) blood sugar diagnostic (OneTouch #50 ea 04/06/25 Verio test strips) estradiol 0.01% (0.1 mg/gram) See Rx Instructions .Route 06/28/25 vaginal cream .COMPLEX #42.5 grams nitroglycerin 0.4 mg sublingual 0.4 mg sublingual Q5M PRN chest 07/15/25 tablet pain #25 tabs aspirin 81 mg tablet,delayed 81 mg PO DAILY 90 days #90 tabs 07/22/25 release clopidogrel 75 mg tablet 75 mg PO DAILY 90 days #90 tabs 07/22/25 alprazolam 0.25 mg tablet 0.25 mg PO BID PRN anxiety 30 days 07/29/25 #60 tabs Allergies Allergy/AdvReac Type Severity Reaction Status Date / Time erythromycin base Allergy Mild RASH Verified 07/29/25 14:02 Penicillins Allergy Mild rash Verified 07/29/25 14:02 Review of Systems Const: Denies: fever(s) or chills Card: Denies: chest pain Resp: Denies: dyspnea GI: Denies: abdominal pain : Denies: dysuria, urinary frequency or urinary urgency Musc: Denies: neck pain or back pain Skin/Breast: Denies: rash PFSH ED PFSH: Medical History Otitis media Symptoms of urinary tract infection Disorder of right eustachian tube Bronchitis Enrolled in chronic care management Influenza vaccine needed Pharyngitis Chest pressure Recurrent cold sores Nasal sore Large hiatal hernia Hyperemia Pelvic pain History of treatment for tuberculosis Post-menopausal Weakness Palpitations Generalized weakness Chronic back pain Compression fracture of thoracic vertebra Deformity of toenail Allergic conjunctivitis Wheezing Lower respiratory infection Upper respiratory infection Sensation of pressure in bladder area Acute bacterial sinusitis Anxiety about health Sleep apnea Tick bite Tick bite Oral herpes simplex infection Chronic sinusitis Syrinx of spinal cord Chest pain CAD (coronary artery disease) 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 Type 2 diabetes mellitus with other circulatory complication, without long-term current use of insulin Mixed hyperlipidemia Patient has CAD and history of elevated lipids. She is taking medications as ordered. Arteriosclerotic heart disease Hypothyroidism, unspecified type Hiatal hernia Essential hypertension Anxiety and depression (~04/10/24) Surgical History History of cataract surgery Status post cataract surgery History of colonoscopy S/P tonsillectomy S/P hysterectomy S/P hemorrhoidectomy H/O heart artery stent Angioplasty with placement of 3 stents in the mid and left anterior descending. Family History Mother Diabetes Hypertension Father Hypertension Other Cancer H/O heart artery stent Social History Smoking and tobacco/nicotine status: former use of tobacco/nicotine Physical Exam Const: GENERAL APPEARANCE: cooperative ORIENTATION/CONSCIOUSNESS: Yes awake, Yes oriented to person, Yes oriented to place and Yes oriented to time HENMT: COMMON NORMALS: normocephalic, atraumatic and hearing grossly normal bilaterally HEAD & SCALP: normocephalic and atraumatic Resp: COMMON NORMALS: normal respiratory effort, No retractions, No use of accessory muscles and clear to auscultation bilaterally AUSCULTATION: clear to auscultation bilaterally Cardio: COMMON NORMALS: regular rate, regular rhythm and No murmurs present (Cardio) RATE: regular rate RHYTHM: regular rhythm GI: COMMON NORMALS: Soft to palpation and No hepatosplenomegaly present AUSCULTATION: Yes normoactive bowel sounds PALPATION: Yes Soft to palpation, No Tenderness to palpation present (GI), No Guarding due to palpation present (GI) and Yes No hepatosplenomegaly present Extremity: COMMON NORMALS: normal to inspection, capillary refill normal, no clubbing, cyanosis or edema, no calf tenderness and no pedal edema Neuro: SENSORIUM/ORIENTATION: Yes oriented to person, Yes oriented to place and Yes oriented to time Skin: COMMON NORMALS: no rashes or lesions noted GENERAL SKIN EXAM: no rashes or lesions noted Course Vital Signs: Vital signs: Vital Signs Temperature 98.0 F 07/28/25 08:00 Pulse Rate 54 L 07/28/25 10:50 Respiratory Rate 18 07/28/25 10:50 Blood Pressure 137/45 07/28/25 10:50 Pulse Oximetry 99 07/28/25 10:50 Oxygen Delivery Me thod Room Air 07/27/25 16:00 MDM - Chest Pain Medical Decision Making Elevated troponin recent stents patient having pain that is persisting although very low-grade. Patient started on heparin admit consult cardiology. Labs and imaging reviewed as found in chart. Discussed with patient. Medical Records I reviewed the patient's medical records. Lab Data I reviewed the patient's lab results. 07/28/25 03:30 07/28/25 03:30 Radiology Impressions Chest X-Ray 07/27/25 10:37 IMPRESSION: Stable chest with no acute abnormality. Laboratory Results WBC 8.19 10^3/uL (3.29-11.43) 07/27/25 10:45 RBC 4.74 10^6/uL (3.85-5.65) 07/27/25 10:45 Hgb 14.30 g/dL (11.27-16.99) 07/27/25 10:45 Hct 42.8 % (36-47) 07/27/25 10:45 MCV 90.3 fl (85-98) 07/27/25 10:45 MCH 30.2 pg (27-33) 07/27/25 10:45 MCHC 33.4 g/dL (30-55) 07/27/25 10:45 RDW 13.3 % (12.1-15.1) 07/27/25 10:45 Plt Count 251 10^3/cmm (157-399) 07/27/25 10:45 MPV 10.4 fL (7.4-10.4) 07/27/25 10:45 Neut % (Auto) 70.1 % 07/27/25 10:45 Lymph % (Auto) 15.1 % 07/27/25 10:45 [place] % (Auto) 8.2 % 07/27/25 10:45 Eos % (Auto) 5.5 % 07/27/25 10:45 Baso % (Auto) 0.7 % 07/27/25 10:45 Neut # (Auto) 5.74 10^3/uL (1.8-7.7) 07/27/25 10:45 Lymph # (Auto) 1.2 10^3/uL (0.8-4.8) 07/27/25 10:45 [place] # (Auto) 0.7 10^3/uL (0.2-0.9) 07/27/25 10:45 Eos # (Auto) 0.5 10^3/uL (0.0-0.8) 07/27/25 10:45 Baso # (Auto) 0.1 10^3/uL (0.0-0.1) 07/27/25 10:45 Nucleated RBC % (auto) 0 % 07/27/25 10:45 Nucleated RBCs # 0.0 /100WBC 07/27/25 10:45 Sodium 136 mmol/L (136-145) 07/27/25 11:17 Potassium 4.3 mmol/L (3.5-5.1) 07/27/25 11:17 Chloride 103 mmol/L (98-107) 07/27/25 11:17 Carbon Dioxide 23 mmol/L (22-29) 07/27/25 11:17 Anion Gap 14.3 (5-19) 07/27/25 11:17 BUN 17 mg/dL (8-23) 07/27/25 11:17 Creatinine 0.8 mg/dL (0.5-0.9) 07/27/25 11:17 GFR Calculation Not Reportable 07/27/25 11:17 Glucose 154 mg/dL (65-115) H 07/27/25 11:17 Calculated Osmolality 287 mOsm/kg (285-295) 07/27/25 11:17 Calcium 9.2 mg/dL (8.5-10.5) 07/27/25 11:17 Total Bilirubin 0.5 mg/dL (0.15-1.2) 07/27/25 11:17 AST 24 U/L (0-32) 07/27/25 11:17 ALT 25 U/L (0-33) 07/27/25 11:17 Alkaline Phosphatase 86 U/L (35-105) 07/27/25 11:17 Troponin T Baseline 160 ng/L (0-10) H* 07/27/25 10:45 Troponin T 120 Minute 147.5 ng/L (0-10) H 07/27/25 12:19 Delta Troponin T -12.5 ABS# (0-10) L 07/27/25 12:19 Total Protein 7.1 g/dL (6.6-8.7) 07/27/25 11:17 Albumin 4.2 g/dL (3.5-5.2) 07/27/25 11:17 Globulin 2.9 g/dL (1.3-4.6) 07/27/25 11:17 Lipase 51 U/L (13-60) 07/27/25 11:17 All radiology interpretation(s) finalized by discharge EKG Data EKG 1: I personally reviewed and interpreted this EKG as follows: Interpretation: EKG 07/27/2025 1041 sinus rhythm rate of 69 MI interval 164 QTc [address] changes noted compared to EKG 07/20/2025 no significant change EKG 2: I personally reviewed and interpreted this EKG as follows: Interpretation: EKG 07/27/2025 1253 sinus rhythm rate of 66 MI interval 172 QTc [address] changes noted compared to EKG done earlier same day no significant change Discharge Plan Discharge Patient Disposition: Admitted As Inpatient Admit Provider: Lawson Bell Clinical Impression: Elevated troponin, Chest pain, Coronary artery disease, History of coronary angioplasty with insertion of stent Condition: Stable Discharge Diet: Cardiac Discharge Activity: Resume usual activity Coding Level of Care Code 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
[2025-07-27 10:57] LABS: Hematocrit 42.8 % (36-47); Hemoglobin 14.30 g/dL (11.27-16.99); Mean Corpuscular HGB Conc 33.4 g/dL (30-55); Mean Corpuscular Hemoglobin 30.2 pg (27-33); Mean Corpuscular Volume 90.3 fl (85-98); Nucleated Red Blood Cells % 0 %; Platelet Count 251 10^3/cmm (157-399); Red Blood Count 4.74 10^6/uL (3.85-5.65); White Blood Count 8.19 10^3/uL (3.29-11.43)
[2025-07-27 11:19] LABS: Troponin(5th) Baseline 160 ng/L (0-10)
[2025-07-27] MEDS: heparin 5,000 unit/mL INJ 1 mL IVP (11:47)
[2025-07-27] MEDS: heparin drip 25,000 UNIT/500 ML PREMIX 18.04 UNIT IV (11:49)
--- NOTE | 2025-07-27 11:50 | PC.NURSE ---
Charge nurse linh started this pts heparin drip
[2025-07-27 12:00] LABS: Alanine Aminotransferase 25 U/L (0-33); Albumin Level 4.2 g/dL (3.5-5.2); Alkaline Phosphatase 86 U/L (35-105); Anion Gap 14.3 (5-19); Aspartate Amino Transferase 24 U/L (0-32); Blood Urea Nitrogen 17 mg/dL (8-23); Calcium 9.2 mg/dL (8.5-10.5); Carbon Dioxide 23 mmol/L (22-29); Chloride 103 mmol/L (98-107); Creatinine Clr Calc Pharmacy 53.6003; Globulin 2.9 g/dL (1.3-4.6); Glucose 154 mg/dL (65-115); Lipase 51 U/L (13-60); Osmolality Calculated 287 mOsm/kg (285-295); Potassium 4.3 mmol/L (3.5-5.1); Sodium 136 mmol/L (136-145); Total Protein 7.1 g/dL (6.6-8.7)
--- NOTE | 2025-07-27 12:48 | P.CONIM_ITS ---
Providers/Reason For Consult 2 Consulting Physician/Specialty*: GUS Pete MD/cardiology Reason for Consult*: Patient with a chest pain, elevated troponin T, recent PCI Primary Care Provider: ANTONI Griffin History of Present Illness History of Present Illness Dai Ross is a 80 year old female, is admitted to hospital through the emergency room where she presented with complaints of chest tightness, shortness of breath and generalized weakness. This patient apparently was discharged from the hospital on the of this month where she was admitted with unstable anginal symptoms. She underwent a cardiac catheterization and was found to have subtotal occlusion of the proximal to the mid LAD. She underwent PCI with 3 stents on the and was discharged home on the . According the patient, she continued to have the chest tightness/heaviness, shortness of breath and occasional dizziness. She might have had some improvement of the chest pains. Her blood pressure has been fluctuating. Because of the persistence of the symptoms, she was brought back to the hospital. She has a history of hypertension, type 2 diabetes, dyslipidemia and hypothyroidism. Her blood sugar has been fairly under control. She is denies any fever, chills or cough. She had the initial PCI in 2001. She denies any smoking abuse or any substance abuse. Her 2 sisters, brother and both parents had coronary interventions. She has been compliant with her medications. Review of Systems 2 Narrative: CONSTITUTIONAL: Has feeling of weakness/dizziness EYES: No blurring of vision or other visual disturbances lately. ENT: No hoarseness of voice, auditory disturbances or sore throat. CARDIOVASCULAR: As mentioned above. RESPIRATORY: No significant cough. GASTROINTESTINAL: No hematemesis or melena. GENITOURINARY: No dysuria or hematuria. INTEGUMENTARY: No skin rashes or history of skin cancer. NEURO: No transient ischemic attacks or amaurosis. PSYCHIATRIC: Patient has a history of anxiety disorder HEMATOLOGIC: No bleeding disorders or significant anemia. ENDOCRINE: Type 2 diabetes as mentioned above MUSCULOSKELETAL: No recent joint pain or swelling. ALLERGY/IMMUNOLOGY: As mentioned above. Medications/Allergies Home Medications ?Medication ?Instructions ?Recorded ?Confirmed ?Last Taken ?Type blood sugar diagnostic #50 ea 04/17/22 07/27/25 Unk nown Rx blood-glucose meter #1 ea 04/17/22 07/27/25 Unkn own Rx inhalational spacing device (Chava #1 ea 10/04/23 Unknown Rx Aerosol [place] Enhancer spacer) blood sugar diagnostic (OneTouch #50 ea 04/06/2507/27 Unknown Rx Verio test strips) estradiol 0.01% (0.1 mg/gram) See Rx Instructions .Rou te 06/28/25 07/27/25 Unknown Rx vaginal cream .COMPLEX #42.5 grams nitroglycerin 0.4 mg sublingual 0.4 mg sublingual Q5M PRN chest 07/15/25 07/27/25 Unknown Rx tablet pain #25 tabs levocetirizine 5 mg tablet 5 mg PO DAILY PRN allergies 07/20/25 07/27/25 07/26/25 History levothyroxine 25 mcg tablet 25 mcg PO QAM 07/20/2507/27/25 History sitagliptin phosphate 25 mg tablet 25 mg PO DAILY 07/1007/27/25 07/26/25 History (Januvia) aspirin 81 mg tablet,delayed 81 mg PO DAILY 90 days #9 0 tabs 07/22/25 07/27/25 07/26/25 Rx release atorvastatin 40 mg tablet 80 mg (2 x 40 mg) PO DAILY 9 0 days 07/22/25 07/27/25 07/26/25 Rx #90 tabs clopidogrel 75 mg tablet 75 mg PO DAILY 90 days #90 t abs 07/22/25 07/27/25 07/27/25 Rx Allergies Allergy/AdvReac Type Severity Reaction Status Date / Time erythromycin base Allergy Mild RASH Verified 07/20/25 13:24 Penicillins Allergy Mild rash Verified 07/20/25 13:24 Current Medications Generic Name Dose Route Start Last Admin Trade Name Freq PRN Reason Stop Dose Admin Heparin Sodium/Sodium Chloride 25,000 unit in 500 mls @ 0 mls/hr 07/27/25 11:45 07/27/25 11:49 Heparin Drip IV 14 unit/kg/hr CONT PRAVIN 18.04 mls/hr Protocol Administration Per Protocol PFSH Acute 2 PFSH: Medical History Otitis media Symptoms of urinary tract infection Disorder of right eustachian tube Bronchitis Enrolled in chronic care management Influenza vaccine needed Pharyngitis Chest pressure Recurrent cold sores Nasal sore Large hiatal hernia Hyperemia Pelvic pain History of treatment for tuberculosis Post-menopausal Weakness Palpitations Generalized weakness Chronic back pain Compression fracture of thoracic vertebra Deformity of toenail Allergic conjunctivitis Wheezing Lower respiratory infection Upper respiratory infection Sensation of pressure in bladder area Acute bacterial sinusitis Anxiety about health Sleep apnea Tick bite Tick bite Oral herpes simplex infection Chronic sinusitis Syrinx of spinal cord Chest pain CAD (coronary artery disease) 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 Type 2 diabetes mellitus with other circulatory complication, without long-term current use of insulin Mixed hyperlipidemia Patient has CAD and history of elevated lipids. She is taking medications as ordered. Arteriosclerotic heart disease Hypothyroidism, unspecified type Hiatal hernia Essential hypertension Anxiety and depression (~04/10/24) Surgical History History of cataract surgery Status post cataract surgery History of colonoscopy S/P tonsillectomy S/P hysterectomy S/P hemorrhoidectomy H/O heart artery stent Angioplasty with placement of 3 stents in the mid and left anterior descending. Family History Mother Diabetes Hypertension Father Hypertension Other Cancer H/O heart artery stent Social History Smoking and tobacco/nicotine status: former use of tobacco/nicotine Vitals/I&O/Wt Last Vital Signs Temp 98.0 F 07/27/25 10:36 Pulse 62 07/27/25 12:06 Resp 16 07/27/25 12:06 BP 158/66 07/27/25 12:06 Pulse Ox 98 07/27/25 12:06 O2 Del Method Room Air 07/27/25 12:06 Weight last 48 hrs Weight 142 lb Physical Exam 2 Narrative: GENERAL: The patient is alert and oriented times three. Not in any acute distress. HEENT: No significant pallor, icterus or lymphadenopathy.Oral cavity: There are no mucous membrane lesions. NECK: Trachea appears to be central. No masses noted. No JVD or thyromegaly appreciated. RESPIRATORY: Chest is symmetrical. No intercostals muscle retraction or any accessory muscle activation. There is no chest wall tenderness. Breath sounds are heard bilaterally. No rales or rhonchi heard. No evidence of any consolidation. BREASTS: Deferred. HEART: The heart sounds are normal. No S3 or S4. No significant murmurs. No pericardial rub ABDOMEN: No vessel pulsations or distention. No tenderness. No organomegaly appreciated. Bowel sounds are normally heard. : Deferred. RECTAL: Deferred. LYMPHATIC: No lymphadenopathy noted in the neck. EXTREMITIES: No edema or cyanosis. No clubbing. MUSCULOSKELETAL: No acute joint deformities or swelling SKIN: There are no significant rashes or ecchymosis NEUROPSYCHIATRIC: The patient is alert and oriented x3. Appears to be in a good mood. No tremors or rigidity noted. Data 07/27/25 10:45 07/27/25 11:17 Other Labs: Laboratory Last Values WBC 8.19 10^3/uL (3.29-11.43) 07/27/25 10:45 RBC 4.74 10^6/uL (3.85-5.65) 07/27/25 10:45 Hgb 14.30 g/dL (11.27-16.99) 07/27/25 10:45 Hct 42.8 % (36-47) 07/27/25 10:45 MCV 90.3 fl (85-98) 07/27/25 10:45 MCH 30.2 pg (27-33) 07/27/25 10:45 MCHC 33.4 g/dL (30-55) 07/27/25 10:45 RDW 13.3 % (12.1-15.1) 07/27/25 10:45 Plt Count 251 10^3/cmm (157-399) 07/27/25 10:45 MPV 10.4 fL (7.4-10.4) 07/27/25 10:45 Neut % (Auto) 70.1 % 07/27/25 10:45 Lymph % (Auto) 15.1 % 07/27/25 10:45 [place] % (Auto) 8.2 % 07/27/25 10:45 Eos % (Auto) 5.5 % 07/27/25 10:45 Baso % (Auto) 0.7 % 07/27/25 10:45 Neut # (Auto) 5.74 10^3/uL (1.8-7.7) 07/27/25 10:45 Lymph # (Auto) 1.2 10^3/uL (0.8-4.8) 07/27/25 10:45 [place] # (Auto) 0.7 10^3/uL (0.2-0.9) 07/27/25 10:45 Eos # (Auto) 0.5 10^3/uL (0.0-0.8) 07/27/25 10:45 Baso # (Auto) 0.1 10^3/uL (0.0-0.1) 07/27/25 10:45 Nucleated RBC % (auto) 0 % 07/27/25 10:45 Nucleated RBCs # 0.0 /100WBC 07/27/25 10:45 APTT 219.6 SECONDS (23.9-36.7) H* 07/27/25 16:56 Sodium 136 mmol/L (136-145) 07/27/25 11:17 Potassium 4.3 mmol/L (3.5-5.1) 07/27/25 11:17 Chloride 103 mmol/L (98-107) 07/27/25 11:17 Carbon Dioxide 23 mmol/L (22-29) 07/27/25 11:17 Anion Gap 14.3 (5-19) 07/27/25 11:17 BUN 17 mg/dL (8-23) 07/27/25 11:17 Creatinine 0.8 mg/dL (0.5-0.9) 07/27/25 11:17 GFR Calculation Not Reportable 07/27/25 11:17 Glucose 154 mg/dL (65-115) H 07/27/25 11:17 POC Glucose 129 mg/dL (70-110) H 07/27/25 17:07 Calculated Osmolality 287 mOsm/kg (285-295) 07/27/25 11:17 Calcium 9.2 mg/dL (8.5-10.5) 07/27/25 11:17 Total Bilirubin 0.5 mg/dL (0.15-1.2) 07/27/25 11:17 AST 24 U/L (0-32) 07/27/25 11:17 ALT 25 U/L (0-33) 07/27/25 11:17 Alkaline Phosphatase 86 U/L (35-105) 07/27/25 11:17 Troponin T Baseline 160 ng/L (0-10) H* 07/27/25 10:45 Troponin T 120 Minute 147.5 ng/L (0-10) H 07/27/25 12:19 Delta Troponin T -12.5 ABS# (0-10) L 07/27/25 12:19 Troponin T Hi Sens 6Hr 158.4 ng/L (0-10) H 07/27/25 16:56 Troponin T Hi Sens 6Hr Delta -1.6 ng/L (0-12) L 07/27/25 16:56 Total Protein 7.1 g/dL (6.6-8.7) 07/27/25 11:17 Albumin 4.2 g/dL (3.5-5.2) 07/27/25 11:17 Globulin 2.9 g/dL (1.3-4.6) 07/27/25 11:17 Lipase 51 U/L (13-60) 07/27/25 11:17 Other data: The EKG showed sinus bradycardia with a rate of 57 bpm. Diffuse T wave changes. Poor R wave progression. A&P Assessment and plan 1. Atherosclerotic heart disease of [place] coronary artery with other forms of angina pectoris: Patient seems to have no significant improvement of the symptoms even after the PCI. Possibility of stent occlusion cannot be excluded. The EKG changes appears to be new. Her anxiety/depressive illness could be contributing factor. An echocardiogram would be helpful to evaluate the LV function and rule out any other pathology. 2. Elevated troponin: It could be from the recent PCI. Possibility of a non-ST elevation myocardial infarction cannot be excluded. 3. Type 2 diabetes mellitus with other circulatory complication, without long- term current use of insulin: Her blood sugar need to be closely monitored. Aggressive diabetes control would be appropriate 4. Hypothyroidism, unspecified type: May continue other current medications. 5. Essential hypertension: The blood pressure seems to be slowly getting under control. 6. Mixed hyperlipidemia: May continue on her current medications. Plan: Limited 2D echocardiogram. May continue other current medications for the time being. The echocardiogram was reviewed. Patient was found to have mild LVH. LV ejection fraction was normal. No pericardial effusion or any LV systolic dysfunction. To further evaluate the patient's symptoms, a Myocardial perfusion imaging would be appropriate. I may go ahead and schedule this patient for a Lexiscan/sestamibi/sestamibi stress test, if the 6-hour delta also is unremarkable Based on the clinical progress on the results of the above, further recommendations will be made. 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
[2025-07-27 12:51] LABS: Troponin 5 2HR 147.5 ng/L (0-10); Troponin 5 2HR Delta -12.5 ABS# (0-10)
--- NOTE | 2025-07-27 12:53 | ECG_ITS ---
[facility] Date: 2025-07-27 Pat Name: Dai Ross Department: Room: Gender: Female [employer]ability [employer]: : 1945 Requested By: Tyree Martin Order Number: [id number] Twila MD: Rambo Pete M.D. Measurements Intervals [place] Rate: 66 P: 50 AL: 172 QRS: 34 QRSD: 81 T: 105 QT: 360 QTc: 379 Interpretive Statements SINUS RHYTHM NONSPECIFIC T-WAVE ABNORMALITY Compared to ECG 07/27/2025 10:41:01 No significant changes Electronically Signed On 07-29-2025 00:11:17 GRADES 1 THROUGH 6 TEACHER by Rambo Pete M.D. [email or web address]
--- NOTE | 2025-07-27 14:10 | PM.HP ---
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 On 07/20/25, had a cardiac catheterization with stents x3 to the proximal - mid LAD. Since her procedure, she reports she has episodes of chest pressure with associated sweating, palpitations, nausea, and anxiety. Denies focal weakness with exception of known left lower arm numbness from carpal tunnel, per patient. Today, symptoms persisted and she was so nauseous she could not take her morning medications. She was concerned for cardiac event versus recurrent anxiety. She drove herself here by private vehicle. Family, including sister at bedside. In the ED, BP 136/70, vitals otherwise unremarkable. WBC 8.19, Hgb 14.3, PLT 251. Glucose 154. Troponin 160. Bun and creatinine WNL. AST/ALT WNL. CXR; stable chest with no acute abnormality. Will admit to the hospitalist service for further evaluation and treatment. Cardiology consulted, recommendations appreciated. Review of Systems Const: Denies: fever(s) or chills Card: Reports: chest pain, lightheadedness, pre-syncope and other (diaphoresis) Resp: Reports: dyspnea GI: Reports: nausea; Denies: abdominal pain : Denies: dysuria, urinary frequency or urinary urgency Musc: Denies: neck pain or back pain Skin/Breast: Denies: rash Neuro: Reports: numbness in extremities (left wrist numbness s/t carpal tunnel - per patient ) Psych: Reports: anxiety Medications/Allergies Home Medications ?Medication ?Instructions ?Recorded ?Confirmed ?Last Taken ?Type blood sugar diagnostic #50 ea 04/17/22 07/27/25 Unknown Rx blood-glucose meter #1 ea 04/17/22 07/27/25 Unknown Rx inhalational spacing device (Chava #1 ea 10/04/23 07/27/25 Unknown Rx Aerosol Spink Enhancer spacer) blood sugar diagnostic (OneTouch #50 ea 04/06/25 07/27/25 Unknown Rx Verio test strips) estradiol 0.01% (0.1 mg/gram) See Rx Instructions .Route 06/28/25 07/27/25 Unknown Rx vaginal cream .COMPLEX #42.5 grams nitroglycerin 0.4 mg sublingual 0.4 mg sublingual Q5M PRN chest 07/15/25 07/27/25 Unknown Rx tablet pain #25 tabs levocetirizine 5 mg tablet 5 mg PO DAILY PRN allergies 07/20/25 07/27/25 07/26/25 History levothyroxine 25 mcg tablet 25 mcg PO QAM 07/20/25 07/27/25 07/27/25 History sitagliptin phosphate 25 mg tablet 25 mg PO DAILY 07/20/25 07/27/25 07/26/25 History (Januvia) aspirin 81 mg tablet,delayed 81 mg PO DAILY 90 days #90 tabs 07/22/25 07/27/25 07/26/25 Rx release atorvastatin 40 mg tablet 80 mg (2 x 40 mg) PO DAILY 90 days 07/22/25 07/27/25 07/26/25 Rx #90 tabs clopidogrel 75 mg tablet 75 mg PO DAILY 90 days #90 tabs 07/22/25 07/27/25 07/27/25 Rx Allergies Allergy/AdvReac Type Severity Reaction Status Date / Time erythromycin base Allergy Mild RASH Verified 07/20/25 13:24 Penicillins Allergy Mild rash Verified 07/20/25 13:24 PFSH Acute PFSH: Medical History (Reviewed 07/27/25 @ 16:11 by Lauren Perez, [employer]ER, STENOTYPE OPERATOR) Otitis media Symptoms of urinary tract infection Disorder of right eustachian tube Bronchitis Enrolled in chronic care management Influenza vaccine needed Pharyngitis Chest pressure Recurrent cold sores Nasal sore Large hiatal hernia Hyperemia Pelvic pain History of treatment for tuberculosis Post-menopausal Weakness Palpitations Generalized weakness Chronic back pain Compression fracture of thoracic vertebra Deformity of toenail Allergic conjunctivitis Wheezing Lower respiratory infection Upper respiratory infection Sensation of pressure in bladder area Acute bacterial sinusitis Anxiety about health Sleep apnea Tick bite Tick bite Oral herpes simplex infection Chronic sinusitis Syrinx of spinal cord Chest pain CAD (coronary artery disease) 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 Type 2 diabetes mellitus with other circulatory complication, without long-term current use of insulin Mixed hyperlipidemia Patient has CAD and history of elevated lipids. She is taking medications as ordered. Arteriosclerotic heart disease Hypothyroidism, unspecified type Hiatal hernia Essential hypertension Anxiety and depression (~04/10/24) Surgical History History of cataract surgery Status post cataract surgery History of colonoscopy S/P tonsillectomy S/P hysterectomy S/P hemorrhoidectomy H/O heart artery stent Angioplasty with placement of 3 stents in the mid and left anterior descending. Family History Mother Diabetes Hypertension Father Hypertension Other Cancer H/O heart artery stent Social History Smoking and tobacco/nicotine status: former use of tobacco/nicotine Vitals/I&O/Wt Last Vital Signs Temp 97.9 F 07/27/25 16:00 Pulse 70 07/27/25 16:00 Resp 22 H 07/27/25 16:00 BP 117/62 07/27/25 16:00 Pulse Ox 97 07/27/25 16:00 O2 Del Method Room Air 07/27/25 16:00 Weight last 48 hrs Weight 66 kg Weight 64.41 kg Physical Exam Const: COMMON NORMALS: no acute distress and patient oriented x3 GENERAL APPEARANCE: cooperative ORIENTATION/CONSCIOUSNESS: Yes awake, Yes oriented to person, Yes oriented to place and Yes oriented to time Chest: COMMONS NORMALS: normal inspection of the chest and normal palpation of entire chest wall CHEST: Yes Symmetrical chest wall rise Resp: COMMON NORMALS: normal respiratory effort, No retractions, No use of accessory muscles and clear to auscultation bilaterally AUSCULTATION: clear to auscultation bilaterally Cardio: COMMON NORMALS: regular rate and regular rhythm RATE: regular rate RHYTHM: regular rhythm PERIPHERAL PULSES: femoral pulses present Neuro: COMMON NORMALS: patient oriented x3 and moves all extremities SENSORIUM/ORIENTATION: Yes alert OTHER: AAOx4 Skin: WOUNDS: Yes surgical site (no hematoma palpable) Details: no odor Data 07/27/25 10:45 07/27/25 11:17 A&P Assessment and plan 1. Chest pressure: Troponin 160 Serial troponins Heparin drip started in ED EKG Telemetry Cardiology consulted, recommendations appreciated Admit to observation PT/OT N.p.o. at midnight 2. Mixed hyperlipidemia: Continue home medications 3. Type 2 diabetes mellitus with other circulatory complication, without long-term current use of insulin: Glucose 154 A1c Last was yesterday Monitor glucose 4. Essential hypertension: BP 150/70 > 175/83 BP monitoring 5. Anxiety and depression: Continue home regimen 6. Hypothyroidism, unspecified type: Continue levothyroxine Plan: Discharge home today on aspirin, Plavix, atorvastatin, valsartan, and her other home medications. Follow-up in the cardiology clinic in 2 weeks. PDMP PDMP Reviewed: Not Reviewed Attestations Medical Necessity Statement*: Initial hospitalization for at least one midnight for recurrent chest pain after discharge from interventional cardiac procedure. Diagnoses Chest pressure R07.89 Mixed hyperlipidemia E78.2 Type 2 diabetes mellitus with other circulatory complication, without long-term current use of insulin E11.59 Diabetes mellitus complication detail: with other circulatory complications Diabetes mellitus complication status: with circulatory complication Diabetes mellitus retirement insulin use: without center director use Essential hypertension I10 Anxiety and depression F41.9; F32.A Hypothyroidism, unspecified type E03.9 Hypothyroidism type: unspecified Time Spent (min) 70
--- NOTE | 2025-07-27 14:43 | PC.NURSE ---
patient refused. patient is ambulatory
--- NOTE | 2025-07-27 16:37 | ECG_ITS ---
[employer] Test Date: 2025-07-27 Pat Name: Dai Ross Department: Room: 105 Gender: Female Voice Over Artist: : 1945 Requested By: Tyree Martin Order Number: [id number] Twila MD: Rambo Pete M.D. Measurements Intervals [place] Rate: 57 P: 51 LA: 173 QRS: 28 QRSD: 86 T: 115 QT: 394 QTc: 386 Interpretive Statements SINUS BRADYCARDIA NONSPECIFIC T-WAVE ABNORMALITY Compared to ECG 07/27/2025 12:53:55 Sinus rhythm no longer present T-wave abnormality still present Electronically Signed On 07-29-2025 00:09:03 RAILCAR CARPENTER by Rambo Pete M.D. [email or web address]
[2025-07-27 18:03] LABS: Troponin 5 6HR 158.4 ng/L (0-10); Troponin 5 6HR Delta -1.6 ng/L (0-12)
[2025-07-27 18:13] LABS: Partial Thromboplastin Time 219.6 SECONDS (23.9-36.7)
--- NOTE | 2025-07-27 20:24 | USCV_ITS ---
Dai Ross Age: 80 Gender: F : 1945 Exam Date: 07/27/2025 20:32 Ordering Phys: Rambo Pete MD ([email or web address]) Technologist: MAGUI Exam Location: [facility] [place] Indication: chest pain, elevated troponi, History of recent cardiac cath s/p 3 coronary stents, History of HTN, YASH, DM, anxiety, palps. BP: 117 / 60 HR: 61 Rhythm: Sinus Technical Quality: Adequate MEASUREMENTS (Male / Female) Normal Values 2D ECHO LV Diastolic Diameter PLAX 3.5 cm 4.2 - 5.9 / 3.9 - 5.3 cm IVS Diastolic Thickness 1.7 cm 0.6 - 1.0 / 0.6 - 0.9 cm IVS Systolic Thickness 1.6 cm LVPW Diastolic Thickness 1.1 cm 0.6 - 1.0 / 0.6 - 0.9 cm LVPW Systolic Thickness 1.4 cm LVOT Diameter 1.7 cm LV Ejection Fraction 2D Teich 68.2 % LV Ejection Fraction MOD 4C 69.4 % LV Ejection Fraction MOD 2C 84.0 % LV Ejection Fraction 2C AL 84.7 % LA Diameter 3.3 cm Aorta at Sinotubular Diameter 2.4 cm IVC Diameter 1.0 cm M-MODE LA Ao Ratio MM 1.5 AV Cusp Separation MM 1.7 cm DOPPLER AV Peak Velocity 146.0 cm/s LVOT Peak Velocity 90.0 cm/s AV Area Cont Eq vti 1.7 cm squared AV Area Cont Eq pk 1.4 cm squared MV Peak Velocity 105.0 cm/s MV Area PHT 4.2 cm squared Mitral E to A Ratio 0.8 TV Peak E Velocity 43.0 cm/s PV Peak Velocity 86.0 cm/s FINDINGS Left Ventricle Normal left ventricular size and systolic function, EF 69%. Mild left ventricular hypertrophy. No regional wall motion abnormalities. Grade I/IV diastolic dysfunction (abnormal relaxation filling pattern), normal to mildly elevated filling pressures. Right Ventricle Normal right ventricular size and systolic function. Right Atrium Normal right atrial size. Left Atrium Mildly increased left atrial size. IA Septum Normal interatrial septum. Mitral Valve Trace mitral valve regurgitation. Aortic Valve Thickened aortic valve. Tricuspid Valve Trace tricuspid valve regurgitation. Pulmonic Valve Structurally normal pulmonic valve. Pericardium No pericardial effusion. Aorta Normal aortic annulus size. IVC Normal inferior vena cava. CONCLUSIONS Normal left ventricular size and systolic function, EF 69%. Mild left ventricular hypertrophy. No regional wall motion abnormalities. Grade I/IV diastolic dysfunction (abnormal relaxation filling pattern), normal to mildly elevated filling pressures. Thickened aortic valve. Trace mitral valve regurgitation. Mildly increased left atrial size. Trace tricuspid valve regurgitation. There is no pericardial effusion. There are no intracardiac masses. Compared to the study from 07/20/2025, there may not be a significant change Dr Rambo Pete MD FAC (Electronically Signed) Final Date: 27 July 2025 23:32 S
[2025-07-27 22:54] LABS: Partial Thromboplastin Time 30.5 SECONDS (23.9-36.7)
[2025-07-28] VITALS: BP 127/56; PULSE 62; RESP 15; TEMP 36.7; O2SAT 97
--- NOTE | 2025-07-28 00:14 | NMCV_ITS ---
NM darby perf SPECT r/s* [id number] Dai Ross Age: 80 Gender: F : 1945 Exam Date: 07/28/2025 06:42 Ordering Phys: Rambo Pete MD ([email or web address]) Technologist: FLORY Ribeiro Exam Location: [facility] Indications: CP STRESS TEST Please see separate stress test report in [facility] for full findings IMAGE PROTOCOL Rest/Stress 1 isc Radiopharmaceutical Dose (mCi) Administration Site Administered by Rest: Tc-99m 10.6 IV FLORY Mueller Sestamibi Stress:Tc-99m 32.9 IV FLORY Ribeiro Sestamiandrae Rest: 28-Jul-2025 60 Discovery 630 Stress: 28-Jul-2025 30 Discovery 630 SPECT RESULTS Technical Quality: Good Raw Data Analysis: Normal Image Corrections: No attenuation or motion correction applied Summed Stress Score: 2 Summed Rest Score: 0 Summed Difference Score: 2 PERFUSION FINDINGS The small area of moderately decreased tracer uptake was noted in the mid inferolateral segment with complete reversibility FUNCTIONAL RESULTS (calculated via Gated SPECT) Stress Image LV EF (%): 93 Stress EDV (mL):41 TID: 0.71 Stress ESV (mL):3 FUNCTIONAL FINDINGS: Segmental wall motion analysis revealing no gross wall motion abnormalities IMPRESSIONS 1. MPI revealed a small area of moderate reversibility in the mid inferolateral region, suggestive of ischemia in the distribution of the left circumflex artery. 2. Normal LV ejection fraction of 93%. 3. LV wall motion analysis revealing no gross wall motion abnormalities. 4. Normal LV volume Compared to the study from 01/15/2025, the area of ischemia appears to be new Dr Rambo Pete MD [facility] (Electronically Signed) Final Date: 28 July 2025 08:22 S
[2025-07-28 04:25] LABS: Hematocrit 39.0 % (36-47); Hemoglobin 13.10 g/dL (11.27-16.99); Mean Corpuscular HGB Conc 33.6 g/dL (30-55); Mean Corpuscular Hemoglobin 29.6 pg (27-33); Mean Corpuscular Volume 88.2 fl (85-98); Nucleated Red Blood Cells % 0 %; Platelet Count 273 10^3/cmm (157-399); Red Blood Count 4.42 10^6/uL (3.85-5.65); White Blood Count 6.01 10^3/uL (3.29-11.43)
[2025-07-28 04:35] VITALS: BP 127/60; PULSE 58; RESP 12; O2SAT 98
[2025-07-28 04:48] LABS: Anion Gap 15.0 (5-19); Blood Urea Nitrogen 13 mg/dL (8-23); Calcium 9.1 mg/dL (8.5-10.5); Carbon Dioxide 24 mmol/L (22-29); Chloride 103 mmol/L (98-107); Glucose 126 mg/dL (65-115); Osmolality Calculated 288 mOsm/kg (285-295); Partial Thromboplastin Time 194.2 SECONDS (23.9-36.7); Potassium 4.0 mmol/L (3.5-5.1); Sodium 138 mmol/L (136-145)
[2025-07-28 05:04] LABS: Estmated Average Glucose 134; Hemoglobin A1C 6.3 % (4.0-6.0)
[2025-07-28 06:00] VITALS: BMI 24.8
[2025-07-28 06:28] LABS: Partial Thromboplastin Time 122.5 SECONDS (23.9-36.7)
--- NOTE | 2025-07-28 06:44 | PC.NURSE ---
Patient ptt came back elevated at 122.5, Dr Gamboa notified and new orders were placed.
--- NOTE | 2025-07-28 07:28 | P.PN_ITS ---
Subjective 2 Subjective: Patient is a very pleasant 80-year-old female seen and examined at bedside on hospital rounds today. Patient sitting up in bedside chair stating that she has left-sided chest pain with movement. Was able to palpate and recreate chest pain, atypical most likely not cardiac related. Patient does state that she is very tired, gets winded with any type of movement and feels worse than she did before having her 3 stents. Currently awaiting stress test. Spoke with Dr. Pete who defers to Dr. Kothari on plan going forward. Vital signs remained stable. Will continue current interventions and further workup and management, all questions and concerns addressed the patient at the bedside today. Vitals/I&O/Wt Last Vital Signs Temp 98.1 F 07/28/25 00:00 Pulse 58 L 07/28/25 04:35 Resp 12 07/28/25 04:35 BP 127/60 07/28/25 04:35 Pulse Ox 98 07/28/25 04:35 O2 Del Method Room Air 07/27/25 16:00 07/27/25 07/28/25 07/28/25 22:59 06:59 14:59 Intake Total 357.861 / 357.861 117.333 / 475.194 Balance 357.861 / 357.861 117.333 / 475.194 Weight last 48 hrs Weight 65.6 kg Weight 66 kg Weight 64.41 kg Physical Exam 2 Const: COMMON NORMALS: no acute distress, patient oriented x3 and alert G ENERAL APPEARANCE: cooperative ORIENTATION/CONSCIOUSNESS: Yes awake, Yes oriented to person, Yes oriented to place and Yes oriented to time Chest: CHEST: Yes Symmetrical chest wall rise OTHER: Reproducible left-sided chest pain with palpation Resp: COMMON NORMALS: normal respiratory effort, No retractions, No use of accessory muscles and clear to auscultation bilaterally AUSCULTATION: clear to auscultation bilaterally Cardio: COMMON NORMALS: regular rate and regular rhythm RATE: regular rate RHYTHM: regular rhythm PERIPHERAL PULSES: femoral pulses present Neuro: COMMON NORMALS: patient oriented x3 and moves all extremities S ENSORIUM/ORIENTATION: Yes alert, Yes oriented to person, Yes oriented to place and Yes oriented to time OTHER: AAOx4 Skin: WOUNDS: Yes surgical site (no hematoma palpable) Details: no odor Data 07/28/25 03:30 07/28/25 03:30 A&P Assessment and plan 1. Chest pressure: Troponin 160--<147.5--<158.4 Heparin drip started in ED, held currently Telemetry Greatly appreciate cardiology consultation and recommendations PT/OT Stress test pending 2. Mixed hyperlipidemia: Continue home medications 3. Type 2 diabetes mellitus with other circulatory complication, without long- term current use of insulin: Glucose 154 A1c Last was yesterday Monitor glucose 4. Essential hypertension: Better controlled, blood pressure 127/60 BP monitoring 5. Anxiety and depression: Continue home regimen 6. Hypothyroidism, unspecified type: Continue levothyroxine Plan: 07/28/2025 Await stress test results. Pending physical therapy and Occupational Therapy evaluation and recommendations. Pain reproducible left-sided chest, patient denies recent falls or injuries. Will continue treatment and observation, pending cardiology recommendations. PDMP PDMP Reviewed: Not Reviewed Attestations 2 Medical Necessity Statement*: Initial hospitalization for at least one midnight for recurrent chest pain after discharge from interventional cardiac procedure, continued cardiology consultation, pending stress test, may need further interventions. Coding Level of Care Code 96179 Diagnoses Chest pressure R07.89 Mixed hyperlipidemia E78.2 Type 2 diabetes mellitus with other circulatory complication, without long-term current use of insulin E11.59 Diabetes mellitus complication detail: with other circulatory complications Diabetes mellitus complication status: with circulatory complication Diabetes mellitus residential insulin use: without marine oil terminal superintendent use Essential hypertension I10 Anxiety and depression F41.9; F32.A Hypothyroidism, unspecified type E03.9 Hypothyroidism type: unspecified
--- NOTE | 2025-07-28 07:36 | PC.NURSE ---
Intra Lexiscan stress test During recovery phase in stress test the computer monitor went black, monitor shortly came back on and screen was frozen. Unable to save EKG stress test portion as PDF due to screen frozen. All intra stress test data lost. Pt tolerated stress test well. No complaints of chest pain. BP remained 130/140's systolic. No EKG arrythmias observed. [email or web address] notified of event. Dr. Pete notified all data lost.
[2025-07-28 08:00] VITALS: BP 137/75; PULSE 63; RESP 19; TEMP 36.7; O2SAT 99
--- NOTE | 2025-07-28 08:07 | PC.NURSE ---
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 Patient denies chest pain but c/o moderate pain to shoulders post stress. Dr Pete and KECIA Campos into see patient. Received instruction from Dr Pete to hold heparin drip until after stress results.
[2025-07-28 08:36] LABS: Partial Thromboplastin Time 34.1 SECONDS (23.9-36.7)
--- NOTE | 2025-07-28 09:07 | P.PN_ITS ---
Subjective 2 Subjective: Chest pressure has resolved, stress test was normal no ischemia in the LAD distribution. She did not tolerate Imdur, we discussed options for medical management. She would like to wait 1 to 2 weeks to see if symptoms return, if they do she would like to try Ranexa. She can discharge home today. Vitals/I&O/Wt Last Vital Signs Temp 98.1 F 07/28/25 00:00 Pulse 58 L 07/28/25 04:35 Resp 12 07/28/25 04:35 BP 127/60 07/28/25 04:35 Pulse Ox 98 07/28/25 04:35 O2 Del Method Room Air 07/27/25 16:00 07/27/25 07/28/25 07/28/25 22:59 06:59 14:59 Intake Total 357.861 / 475.194 117.333 / 475.194 Balance 357.861 / 475.194 117.333 / 475.194 Weight last 48 hrs Weight 144 lb 9.972 oz Weight 145 lb 8.081 oz Weight 142 lb Physical Exam 2 Const: COMMON NORMALS: no acute distress and patient oriented x3 GENERAL APPEARANCE: cooperative and comfortable ORIENTATION/CONSCIOUSNESS: Yes awake, Yes oriented to person, Yes oriented to place and Yes oriented to time Chest: COMMONS NORMALS: normal inspection of the chest and normal palpation of entire chest wall CHEST: Yes Symmetrical chest wall rise Resp: COMMON NORMALS: normal respiratory effort, No retractions, No use of accessory muscles and clear to auscultation bilaterally EFFORT & INSPECTION: Yes symmetric chest movement AUSCULTATION: clear to auscultation bilaterally Cardio: COMMON NORMALS: regular rate, regular rhythm, S1 normal heart sound present, S2 normal heart sound present, No gallops present (Cardio), No clicks present (Cardio), No murmurs present (Cardio) and No rub (Cardio) RATE: r egular rate RHYTHM: regular rhythm HEART SOUNDS: S1 normal heart sound present and S2 normal heart sound present PERIPHERAL PULSES: radial pulses present Extremity: COMMON NORMALS: no pedal edema Neuro: COMMON NORMALS: patient oriented x3 and moves all extremities S ENSORIUM/ORIENTATION: Yes oriented to person, Yes oriented to place and Yes oriented to time Data 07/28/25 03:30 07/28/25 03:30 A&P Assessment and plan 1. CAD (coronary artery disease): 2. HTN, goal below 130/80: 3. Mixed hyperlipidemia: Plan: No concerns for reocclusion of the recently placed LAD stents. She is chest pain-free currently. She notes large hiatal hernia which could be contributing to her symptoms. She will monitor symptoms at home and if she desires we will start Ranexa 500 twice daily as an outpatient. Follow-up in cardiology clinic 08/10/25 as scheduled. PDMP PDMP Reviewed: Not Reviewed Attestations 2 Medical Necessity Statement*: Discharge home Coding Level of Care Code Acute Code for [facility] Fwd Diagnoses CAD (coronary artery disease) I25.10 HTN, goal below 130/80 I10 Mixed hyperlipidemia E78.2
--- NOTE | 2025-07-28 09:17 | P.DS_ITS ---
Discharge Providers Date of Admission: 07/27/25 13:30 Date of Discharge: July 28, 2025 Attending Provider at Admission: Lawson Bell MD Attending Provider at Discharge: Beth Pena NP Primary Care Provider: ANTONI Griffin Diagnoses at Discharge Discharge Diagnosis 1. Coronary artery disease of [place] artery of [place] heart with stable angina pectoris: 2. HTN, goal below 130/80: 3. 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 On 07/20/25, had a cardiac catheterization with stents x3 to the proximal - mid LAD. Since her procedure, she reports she has episodes of chest pressure with associated sweating, palpitations, nausea, and anxiety. Denies focal weakness with exception of known left lower arm numbness from carpal tunnel, per patient. Today, symptoms persisted and she was so nauseous she could not take her morning medications. She was concerned for cardiac event versus recurrent anxiety. She drove herself here by private vehicle. Family, including sister at bedside. In the ED, BP 136/70, vitals otherwise unremarkable. WBC 8.19, Hgb 14.3, PLT 251. Glucose 154. Troponin 160. Bun and creatinine WNL. AST/ALT WNL. CXR; stable chest with no acute abnormality. Will admit to the hospitalist service for further evaluation and treatment. Cardiology consulted, recommendations appreciated. Hospital Course Hospital Course 1. Chest pressure: Troponin 160--<147.5--<158.4 Heparin drip started in ED, held currently Telemetry Greatly appreciate cardiology consultation and recommendations PT/OT Stress test pending 2. Mixed hyperlipidemia: Continue home medications 3. Type 2 diabetes mellitus with other circulatory complication, without long- term current use of insulin: Glucose 154 A1c Last was yesterday Monitor glucose 4. Essential hypertension: Better controlled, blood pressure 127/60 BP monitoring 5. Anxiety and depression: Continue home regimen 6. Hypothyroidism, unspecified type: Continue levothyroxine Per Cardiology: No concerns for reocclusion of the recently placed LAD stents. She is chest pain-free currently. She notes large hiatal hernia which could be contributing to her symptoms. She will monitor symptoms at home and if she desires we will start Ranexa 500 twice daily as an outpatient. Follow-up in cardiology clinic 08/10/25 as scheduled. ECHO results: Normal left ventricular size and systolic function, EF 69%. Mild left ventricular hypertrophy. No regional wall motion abnormalities. Grade I/IV diastolic dysfunction (abnormal relaxation filling pattern), normal to mildly elevated filling pressures. Thickened aortic valve. Trace mitral valve regurgitation. Mildly increased left atrial size. Trace tricuspid valve regurgitation. There is no pericardial effusion. There are no intracardiac masses. Compared to the study from 07/20/2025, there may not be a significant change Stress test results: 1. MPI revealed a small area of moderate reversibility in the mid inferolateral region, suggestive of ischemia in the distribution of the left circumflex artery. 2. Normal LV ejection fraction of 93%. 3. LV wall motion analysis revealing no gross wall motion abnormalities. 4. Normal LV volume Compared to the study from 01/15/2025, the area of ischemia appears to be new Cardiology states the stress test results are okay to discharge - just artifact. Patient has opted to discharge home, discharge is home in stable condition with no chest pain. Continue home medications as previously prescribed, follow cardiology's recommendation, follow strict cardiac diet. Patient is advised to follow-up with primary care in 1 to 2 days and keep her follow-up appointment with cardiology on August 10. All questions and concerns addressed with the patient prior to discharge. Physical Exam Const: COMMON NORMALS: no acute distress, patient oriented x3 and alert GENERAL APPEARANCE: cooperative ORIENTATION/CONSCIOUSNESS: Yes awake, Yes oriented to person, Yes oriented to place and Yes oriented to time Chest: CHEST: Yes Symmetrical chest wall rise Resp: COMMON NORMALS: normal respiratory effort, No retractions, No use of accessory muscles and clear to auscultation bilaterally AUSCULTATION: clear to auscultation bilaterally Cardio: COMMON NORMALS: regular rate and regular rhythm RATE: regular rate RHYTHM: regular rhythm PERIPHERAL PULSES: femoral pulses present Neuro: COMMON NORMALS: patient oriented x3 and moves all extremities SENSORIUM/ORIENTATION: Yes alert, Yes oriented to person, Yes oriented to place and Yes oriented to time OTHER: AAOx4 Skin: WOUNDS: Yes surgical site (no hematoma palpable) Details: no odor Discharge Data Studies Completed and Pending Completed Studies During Hospitalization Category Date Time Status XR chest 1V portable [id number] Stat Exams 07/27/25 10:37 Completed NM darby perf SPECT r/s* [id number] Routine Nuc Med 07/28/25 00:14 Completed US echo limited [CV. echo limited [id number]] Routine Ultrasound 07/27/25 20:24 Completed Pending at discharge Category Date Time Status Cardiac Stress Test MIBI [Sestamibi Stress Test Request Exams 07/28/25 00:14 Ordered ] Routine Platelet Count Q2D Lab 07/29/25 04:00 Ordered Platelet Count Q2D Lab 07/31/25 04:00 Ordered Radiology Impressions Chest X-Ray 07/27/25 10:37 IMPRESSION: Stable chest with no acute abnormality. Laboratory Results WBC 6.01 10^3/uL (3.29-11.43) 07/28/25 03:30 RBC 4.42 10^6/uL (3.85-5.65) 07/28/25 03:30 Hgb 13.10 g/dL (11.27-16.99) 07/28/25 03:30 Hct 39.0 % (36-47) 07/28/25 03:30 MCV 88.2 fl (85-98) 07/28/25 03:30 MCH 29.6 pg (27-33) 07/28/25 03:30 MCHC 33.6 g/dL (30-55) 07/28/25 03:30 RDW 13.2 % (12.1-15.1) 07/28/25 03:30 Plt Count 273 10^3/cmm (157-399) 07/28/25 03:30 MPV 9.4 fL (7.4-10.4) 07/28/25 03:30 Neut % (Auto) 56.7 % 07/28/25 03:30 Lymph % (Auto) 23.5 % 07/28/25 03:30 [place] % (Auto) 11.1 % 07/28/25 03:30 Eos % (Auto) 7.5 % 07/28/25 03:30 Baso % (Auto) 0.7 % 07/28/25 03:30 Neut # (Auto) 3.41 10^3/uL (1.8-7.7) 07/28/25 03:30 Lymph # (Auto) 1.4 10^3/uL (0.8-4.8) 07/28/25 03:30 [place] # (Auto) 0.7 10^3/uL (0.2-0.9) 07/28/25 03:30 Eos # (Auto) 0.5 10^3/uL (0.0-0.8) 07/28/25 03:30 Baso # (Auto) 0.0 10^3/uL (0.0-0.1) 07/28/25 03:30 Nucleated RBC % (auto) 0 % 07/28/25 03:30 Nucleated RBCs # 0.0 /100WBC 07/28/25 03:30 APTT 34.1 SECONDS (23.9-36.7) D 07/28/25 08:04 Sodium 138 mmol/L (136-145) 07/28/25 03:30 Potassium 4.0 mmol/L (3.5-5.1) 07/28/25 03:30 Chloride 103 mmol/L (98-107) 07/28/25 03:30 Carbon Dioxide 24 mmol/L (22-29) 07/28/25 03:30 Anion Gap 15.0 (5-19) 07/28/25 03:30 BUN 13 mg/dL (8-23) 07/28/25 03:30 Creatinine 0.7 mg/dL (0.5-0.9) 07/28/25 03:30 GFR Calculation Not Reportable 07/28/25 03:30 Glucose 126 mg/dL (65-115) H 07/28/25 03:30 POC Glucose 104 mg/dL (70-110) 07/28/25 06:34 Estimat Average Glucose 134 07/28/25 03:30 Hemoglobin A1c 6.3 % (4.0-6.0) H 07/28/25 03:30 Calculated Osmolality 288 mOsm/kg (285-295) 07/28/25 03:30 Calcium 9.1 mg/dL (8.5-10.5) 07/28/25 03:30 Total Bilirubin 0.5 mg/dL (0.15-1.2) 07/27/25 11:17 AST 24 U/L (0-32) 07/27/25 11:17 ALT 25 U/L (0-33) 07/27/25 11:17 Alkaline Phosphatase 86 U/L (35-105) 07/27/25 11:17 Troponin T Baseline 160 ng/L (0-10) H* 07/27/25 10:45 Troponin T 120 Minute 147.5 ng/L (0-10) H 07/27/25 12:19 Delta Troponin T -12.5 ABS# (0-10) L 07/27/25 12:19 Troponin T Hi Sens 6Hr 158.4 ng/L (0-10) H 07/27/25 16:56 Troponin T Hi Sens 6Hr Delta -1.6 ng/L (0-12) L 07/27/25 16:56 Total Protein 7.1 g/dL (6.6-8.7) 07/27/25 11:17 Albumin 4.2 g/dL (3.5-5.2) 07/27/25 11:17 Globulin 2.9 g/dL (1.3-4.6) 07/27/25 11:17 Lipase 51 U/L (13-60) 07/27/25 11:17 Vitals Last Vital Signs Temp 98.1 F 07/28/25 00:00 Pulse 58 L 07/28/25 04:35 Resp 12 07/28/25 04:35 BP 127/60 07/28/25 04:35 Pulse Ox 98 07/28/25 04:35 O2 Del Method Room Air 07/27/25 16:00 Discharge Plan Discharge Patient Disposition: Home Condition: Stable Prescriptions: Continued estradiol 0.01 % (0.1 mg/gram) cream See Rx Instructions .ROUTE .COMPLEX Qty: 42.5 3RF Dose Instruction: APPLY 1 APPLICATORFUL VAGINALLY DAILY FOR 14 DAYS, THEN 1 APPLICATORFUL TWICE WEEKLY Rx Instructions: APPLY 1 APPLICATORFUL VAGINALLY DAILY FOR 14 DAYS, THEN 1 APPLICATORFUL TWICE WEEKLY NEEDED. (DME) blood sugar diagnostic Strip See Rx Instructions .Route Qty: 50 5RF Rx Instructions: As directed (DME) blood-glucose meter Kit See Rx Instructions .Route Qty: 1 0RF Rx Instructions: As directed (DME) Chava Aerosol [place] Enhancer Spacer See Rx Instructions .Route Qty: 1 0RF Rx Instructions: As directed nitroglycerin 0.4 mg tablet, sublingual 0.4 mg sublingual Q5M PRN (Reason: chest pain) Qty: 25 2RF Rx Instructions: do not exceed 3 doses per episode (DME) OneTouch Verio test strips Strip See Rx Instructions .ROUTE .COMPLEX Qty: 50 5RF Dose Instruction: USE 1 STRIP TO CHECK GLUCOSE ONCE DAILY Rx Instructions: USE 1 STRIP TO CHECK GLUCOSE ONCE DAILY levothyroxine 25 mcg tablet 25 mcg PO QAM Januvia 25 mg tablet 25 mg PO DAILY levocetirizine 5 mg tablet 5 mg PO DAILY PRN (Reason: allergies) aspirin 81 mg Tablet,Delayed Release (Dr/Ec) 81 mg PO DAILY 90 Days Qty: 90 0RF atorvastatin 40 mg Tablet 80 mg PO DAILY 90 Days Qty: 90 0RF clopidogrel 75 mg Tablet 75 mg PO DAILY 90 Days Qty: 90 0RF Discharge Order = DC NOW: Discharge Order (Routine); Ordered 07/28/25 Ordered By: Beth Pena Referrals: SANJAY Frye, TRANSPORTATION WORKER [Primary Care Provider, [facility]] Discharge Diet: Cardiac Discharge Activity: Resume usual activity Patient Instructions: Opioid Safety, Patient Portal & Dotty Instructions Discharge Attestations Time Spent in Discharge Care*: greater than 30 min Quality Metrics Clinical Quality Measures [ No reported AMI, CVA or VTE this stay] Coding Level of Care Code 14625 Diagnoses Coronary artery disease of [place] artery of [place] heart with stable angina pectoris I25.118 Coronary Disease-Associated Artery/Lesion type: [place] artery [place] vs. transplanted heart: [place] heart Associated angina: with stable angina HTN, goal below 130/80 I10 Mixed hyperlipidemia E78.2
--- NOTE | 2025-07-28 09:28 | PC.CHAP ---
Pastoral Care Encounter/Spiritual Assessment Type of Contact [] Declined pharmacist aide visit [] Patient/Family/Request visit [] Outpatient visit [] Follow-up visit [] Physician referral [] Code/Alert [x] Routine visit [] Staff referral [] Actively dying [] Patient sleeping [] Family support [] [] Out of room [] Palliative care [] [] Receiving care in room [] Pre-surgical visit [] Trauma [] Long length of stay [] ICU visit [] Other: Relational/Emotional Strength [x] Patient feels connected with others/family/visitors/staff [] Distress [] Loneliness/isolation [] Abandonment Spirituality of Patient [x] Person of Elizabeth [] Attends Rastafarian of their Elizabeth [x] Believes in Prayer [] Reads Bible or Yazidism materials [] There are Spiritual issues to be addressed Folder Machine Adjuster Interventions [x] Prayer [x] Active listening [] Non-anxious presence [x] Spiritual/emotional support [] Crisis/trauma care [] Spiritual counseling [] Bereavement support [] Provided bereavement packet [] Provided Bible/devotional materials [] Provided toy/stuffed animal, coloring book to patient or family member [] Provided Communion [] Anointing/[place] [] Salvation [x] Completed spiritual assessment [] Other: Impact on Illness or Injury [] Angry [] Fearful [] Anxious [] Often cries [] Exhaustion [] Unable to work [] Unable to attend spiritism [] Unable to walk/stand [] Unable to read [] Unable to drive [] Unable to eat/drink [] Unable to sleep [] Unable to be with family [] Patient intubated [] Other: Summary Time spent with patient 5 min
--- NOTE | 2025-07-28 10:48 | PC.NURSE ---
Patient discharged to home. Instruction provided regarding follow up appointments and need for cardiac rehab. No medication changes. Patient verbalized complete understanding. Patient taken by wheelchair to private vehicle with family by side.
[2025-07-28 10:50] VITALS: BP 137/45; PULSE 54; RESP 18; O2SAT 99
--- OUTSIDE RECORDS SUMMARY | 2025-07-28 12:26 | XMS_ITS | Encounter Summary ---
Author Organization [facility] Address [address] [place] [address] Care Team Providers Care Steel Rule Die Maker Apprentice Name Role Phone Be Frye TILER Primary Care Provider Encounter Details Date Type Department Care Team (Late st Contact Info) Description 07/27/2025 External Device Data [place] ABSTRACTION Provider, Abstract NO ADDRESS ON FILE Social History Tobacco Use Types Packs/Day Years [...] worry about transportation for future doctor visits, leaf size picker medication, etc.? 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
--- OUTSIDE RECORDS SUMMARY | 2025-07-28 12:26 | XMS_ITS | Encounter Summary ---
Author Organization [facility] Address [address] [place] [address] Care Team Providers Care Veterinary Technician Name Role Phone Be Frye APRN Primary Care Provider [phone] Encounter Details Date Type Department Care Team (Latest Contact Info) Description 07/10/2002 Outpatient Historical [facility] [address] [place] [address] Non-Staff, Physician NO ADDRESS ON FILE DIZZINESS AND GIDDINESS (Primary Dx) Social History Tobacco Use Types Packs/Day Years Used Date Smoking Tobacco: Never Assessed Comments Unknown Sex and Gender Information Value Date Recorded Sex Assigned at Not on file Legal Sex Female 6:10 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
--- OUTSIDE RECORDS SUMMARY | 2025-07-28 12:26 | XMS_ITS | Clinical Summary ---
Author Organization [facility] Address [address] [facility] [address] [place] [address] Phone Care Team Providers Care Exceptional Children Teacher Name Role Phone Uday Be MURDOCK Primary Care Provider [phone] Allergies Active Allergy Reactions Criticality Noted Date Comments Penicillins Anaphylaxis High 03/25/2013 Medications clopidogrel (PLAVIX) 75 mg Oral Tab Take 75 mg by mouth daily. Active levothyroxine 50 mcg Oral tablet Take 50 mcg by mouth daily early childhood aide classroom. 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
--- OUTSIDE RECORDS SUMMARY | 2025-07-28 12:26 | XMS_ITS | Clinical Summary ---
Author Organization [facility] Address [address] [address] Phone Care Team Providers Care Airline Managerial Supervisor Name Role Phone Uday Be MURDOCK Primary Care Provider Allergies Active Allergy Reactions Criticality Noted Date [...] Active valsartan (DIOVAN) 160 mg tablet Take 80 mg by mouth daily. 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 No 2024 Housing Stability [...] on file Legal Sex Female 11:31 AM FUR VAULT ATTENDANT Gender Identity Not on file Sexual Orientation Not on file Last Filed Vital Signs Vital Sign Reading Time Taken Comments Blood Pressure 102/56 07/24/2025 5:30 PM FUR VAULT ATTENDANT Pulse 62 07/24/2025 5:30 PM FUR VAULT ATTENDANT Temperature 36.3 C (97.3 F) 07/24/2025 2:43 PM FUR VAULT ATTENDANT Respiratory Rate 18 07/24/2025 5:30 PM FUR VAULT ATTENDANT Oxygen Saturation 97% 07/24/2025 5:30 PM FUR VAULT ATTENDANT Inhaled Oxygen Concentration - - Weight 65.1 kg (143 lb 9.6 oz) 07/24/2025 2:43 P M FUR VAULT ATTENDANT Height 162.6 cm (5' 4 ) 07/24/2025 2:43 PM FUR VAULT ATTENDANT Body Mass Index 24.65 07/24/2025 2:43 PM FUR VAULT ATTENDANT Plan of Treatment Health Maintenance Due Date [...] VACCINE (#1) 2025 09/18/2023, 2021 COVID-19 Vaccine ( - season) 2025, 11/23/2020 Medical Devices Implanted Type Area Refrigeration Service Technician Device Identifier Shelf Expiration Date Model / Serial / Lot Iol Tecnix Eyhance 17.5/Bcnvx Hdrphb Acrl Hill Edge Implanted:Qty: 1 on 11/22/2021 by Lion Soto MD at [facility] Lens Right: Posterior Chamber 03/03/2024 [id number] / [id number] / Description:[facility] Tecnis Eyhance IOL with Tecnis Simplicity Delivery System. DIB00. [employer] Iol Tecnis Eyhance 18.0/ Bcnvx Hdrphb Acrl [place] Edge Implanted:Qty: 1 on 12/27/2021 by Lion Soto MD at [facility] Lens Left: Eye 07/06/2024 / [id number] / Description:IOL TECNIS EYHAN CE 26.5/ BCNVX HDRPHB ACRL HILL EDGE/MODEL DIB00/MANUFACTURED BY [employer] VISION/DIOPTER +[id number] Stent Stent Heart Procedures Procedure Name Priority Date/Time Associated Diagnosis Comments TELEMETRY REPORT 07/26/2025 12:1 7 PM FUR VAULT ATTENDANT TROPONIN 2 HR, 5TH GEN Timed Study 07/24/2025 4:50 PM FUR VAULT ATTENDANT EXTRA TUBE (BLUE) Stat 07/24/2025 3:0 0 PM FUR VAULT ATTENDANT EXTRA TUBE Stat 07/24/2025 3:00 PM FUR VAULT ATTENDANT COMPREHENSIVE METABOLIC PANEL Stat 07/24/2025 3:00 PM FUR VAULT ATTENDANT CBC WITH DIFFERENTIAL Stat 07/24/2025 3:00 PM FUR VAULT ATTENDANT TROPONIN BASELINE, 5TH GEN Stat 07/24/2025 3:00 PM FUR VAULT ATTENDANT EKG 12-LEAD Stat 07/24/2025 2:47 PM FUR VAULT ATTENDANT OXYGEN VIA DEVICE TO KEEP O2 SAT ABOVE Stat 07/24/2025 2:43 PM FUR VAULT ATTENDANT from Last 3 Months Results * TELEMETRY REPORT (07/26/2025 12:17 PM FUR VAULT ATTENDANT) us Provider Scanning ECG ORDERABLES Final Result * (ABNORMAL) TROPONIN 2 HR, 5TH GEN (07/24/2025 4:50 PM FUR VAULT ATTENDANT) TROPONIN T, 2 HR 5TH GEN 279(HH) <=10 ng/L 07/24/2025 5:20 PM FUR VAULT ATTENDANT [facility] DELTA 2HR TROPONIN T % 0 See Interp. % 07/24/2025 5:20 PM FUR VAULT ATTENDANT [facility] Blood Venipuncture / Unknown 07/24/2025 4:50 PM FUR VAULT ATTENDANT 07/24/2025 4:58 PM FUR VAULT ATTENDANT Narrative [facility] - 07/24/2025 5:20 PM FUR VAULT ATTENDANT Troponin elevated. Delta not changing. us Wyatt Salinas DO CHEMISTRY ORDERABLES Final Resul t [facility] CLIA # [id number] [address] [place] [address] * EXTRA TUBE (BLUE) (07/24/2025 3:00 PM FUR VAULT ATTENDANT) Blood Venipuncture / Unknown 07/24/2025 3:00 PM FUR VAULT ATTENDANT 07/24/2025 3:04 PM FUR VAULT ATTENDANT Wyatt Salinas DO HEMATOLOGY ORDERABLES Final Resu lt [facility] CLIA # [id number] [address] [place] [address] * (ABNORMAL) TROPONIN BASELINE, 5TH GEN (07/24/2025 3:00 PM FUR VAULT ATTENDANT) TROPONIN T, BASELINE 5TH GEN 280(HH) <=10 ng/L 07/24/2025 3:27 PM FUR VAULT ATTENDANT [facility] Blood Venipuncture / Unknown 07/24/2025 3:00 PM FUR VAULT ATTENDANT 07/24/2025 3:04 PM FUR VAULT ATTENDANT Narrative [facility] - 07/24/2025 3:27 PM FUR VAULT ATTENDANT Troponin elevated. [employer] Techn[employer] DO CHEMISTRY ORDERABLES Final Resul t Performing Organization Address City/[facility] [address]/ZIP Co de Phone Number [facility] CLIA # [id number] [address] [place] [address] * (ABNORMAL) CBC WITH DIFFERENTIAL (07/24/2025 3:00 PM FUR VAULT ATTENDANT) WBC 6.7 4.0 - 10.0 K/uL 07/24/2025 3:12 PM [facility] RBC 4.40 3.93 - 5.22 M/uL 07/24/2025 3:12 PM [facility] HEMOGLOBIN 13.2 11.2 - 15.7 g/dL 07/24/2025 3:12 PM [facility] HEMATOCRIT 37.8 34.1 - 44.9 % 07/24/2025 3:12 PM [facility] MCV 85.9 79.4 - 94.8 fL 07/24/2025 3:12 PM [facility] MCH 30.0 25.6 - 32.2 pg 07/24/2025 3:12 PM [facility] MCHC 34.9 32.2 - 35.5 g/dL 07/24/2025 3:12 PM [facility] RDW 13.2 11.0 - 14.5 % 07/24/2025 3:12 PM [facility] RDW-STDEV 41.1 36.9 - 56.9 fL 07/24/2025 3:12 PM [facility] PLATELETS 258 163 - 337 K/uL 07/24/2025 3:12 PM [facility] MPV 9.0(L) 10.0 - 14.8 fL 07/24/2025 3:12 PM [facility] NEUTROPHILS 65 34 - 71 % 07/24/2025 3:12 PM [facility] LYMPHOCYTES 18(L) 19 - 52 % 07/24/2025 3:12 PM [facility] MONOCYTES 9 5 - 13 % 07/24/2025 3:12 PM [facility] EOSINOPHILS 7(H) 1 - 6 % 07/24/2025 3:12 PM [facility] BASOPHILS 1 0 - 1 % 07/24/2025 3:12 PM [facility] IMMATURE GRANULOCYTES 1 % 07/24/2025 3:12 PM [facility] NEUTROPHIL ABSOLUTE 4.37 1.56 - 6.13 K/uL 07/24/2025 3:12 PM [facility] LYMPHOCYTE ABSOLUTE 1.21 1.20 - 3.40 K/uL 07/24/2025 3:12 PM [facility] MONOCYTE ABSOLUTE 0.63(H) 0.24 - 0.36 K/uL 07/24/2025 3:12 PM [facility] EOSINOPHIL ABSOLUTE 0.44(H) 0.04 - 0.36 K/uL 07/24/2025 3:12 PM [facility] BASOPHILS ABSOLUTE 0.05 0.01 - 0.08 K/uL 07/24/2025 3:12 PM [facility] IMMATURE GRANULOCYTES ABSOLUTE 0.04 K/uL 07/24/2025 3:12 PM [facility] Blood Venipuncture / Unknown 07/24/2025 3:00 PM FUR VAULT ATTENDANT 07/24/2025 3:04 PM FUR VAULT ATTENDANT us Wyatt Salinas DO HEMATOLOGY ORDERABLES Final Resu lt [facility] CLIA # [id number] [address] [place] [address] * (ABNORMAL) COMPREHENSIVE METABOLIC PANEL (07/24/2025 3:00 PM FUR VAULT ATTENDANT) SODIUM 138 136 - 145 mmol/L 07/24/2025 3:26 PM [facility] POTASSIUM 3.7 3.5 - 5.1 mmol/L 07/24/2025 3:26 PM [facility] CHLORIDE 101 98 - 107 mmol/L 07/24/2025 3:26 PM [facility] CO2 25 22 - 29 mmol/L 07/24/2025 3:26 PM [facility] CALCIUM 9.9 8.8 - 10.2 mg/dL 07/24/2025 3:26 PM [facility] BUN 17 8 - 23 mg/dL 07/24/2025 3:26 PM [facility] CREATININE 0.94 0.51 - 0.95 mg/dL 07/24/2025 3:26 PM [facility] Comment:The GFR result is no t clinically significant on patients <18 or >70 years of age. GLUCOSE 158(H) 74 - 99 mg/dL 07/24/2025 3:26 PM [facility] TOTAL PROTEIN 7.4 6.6 - 8.7 g/dL 07/24/2025 3:26 PM [facility] ALBUMIN 4.5 3.5 - 5.2 g/dL 07/24/2025 3:26 PM [facility] BILIRUBIN TOTAL 0.5 0.0 - 1.2 mg/dL 07/24/2025 3:26 PM [facility] ALKALINE PHOSPHATASE 87 35 - 104 U/L 07/24/2025 3:26 PM FUR VAULT ATTENDANT [facility] AST 27 0 - 35 U/L 07/24/2025 3:26 PM FUR VAULT ATTENDANT [facility] ALT 18 0 - 35 U/L 07/24/2025 3:26 PM [facility] GFR >60 mL/min/1.7 3 sq meter 07/24/2025 3:26 PM [facility] Comment:eGFR calculated with 2020 CKD-EPI equation. Vegetarian diet, extremely high or low muscle mass, and may affect results. Cystatin C with Glomerular Filtration Rate is a suitable alternative for these patients. ANION GAP 12 5 - 20 mmol/L 07/24/2025 3:26 PM [facility] Blood Venipuncture / Unknown 07/24/2025 3:00 PM FUR VAULT ATTENDANT 07/24/2025 3:04 PM FUR VAULT ATTENDANT us Wyatt Salinas DO CHEMISTRY ORDERABLES Final Resul t [facility] CLIA # [id number] [address] [place] [address] * EKG (07/24/2025 2:47 PM FUR VAULT ATTENDANT) Narrative Wyatt Salinas DO - 07/24/2025 2:47 PM FUR VAULT ATTENDANT Wyatt Salinas DO 07/24/2025 5:46 PM EKG Date/Time: 07/24/2025 2:47 PM Performed by: Wyatt Salinas DO Authorized by: Wyatt Salinas DO Rate: ECG rate: 85 ECG rate assessment: age appropriate Rhythm: Rhythm Origin: sinus Rhythm morphology: narrow [place]: QRS axis: Normal Intervals: normal QRSTT: QRSTT changes: No us Wyatt Salinas DO ECG ORDERABLES Final Result from Last [address] [place] [address] [facility] MEDICARE HMO Advance Directives For more information, please contact: [phone] * Full Code (Latest Code Status on File) Date Activated Date Inactivated Comments 12/27/2021 1:26 PM 12/27/2021 5:16 PM * Full Code Date Activated Date Inactivated Comments 11/22/2021 9:45 AM 11/22/2021 2:08 PM Care Teams Airline Managerial Supervisor Relationship Specialty Start Date End Date Be Frye APRN PCP - General Nurse Practitioner Family 05/09/19
--- OUTSIDE RECORDS SUMMARY | 2025-07-28 12:26 | XMS_ITS | Encounter Summary ---
Author Organization [facility] Address [address] [place] [address] Care Team Providers Care Movement Assembly Final Inspector Name Role Phone Be Frye APRN Primary Care Provider [phone] Encounter Details Date Type Department Care Team (Late st Contact Info) Description 09/11/2023 Telephone [facility] Neurology [address] [place] [address] Terrance Pal MD [address] [place] [address] Social History Tobacco Use Types Packs/Day Years Used Date Smoking Tobacco: Never Smokeless Tobacco: Never Alcohol Use Standard Drinks/Week Comments No 0 (1 standard drink = 0.6 oz pur e alcohol) Comments Unknown Sex and Gender Information Value Date Recorded Sex Assigned at Not on file Legal Sex Female 11:31 AM DENTAL OFFICE MANAGER Gender Identity Not on file Sexual Orientation Not on file documented as of this encounter Plan of Treatment Not on file documented as of this encounter Visit Diagnoses Not on filedocumented in this encounter Care Teams Movement Assembly Final Inspector Relationship Specialty Start Date End Date Be Frye APRN PCP - General Nurse Practitioner Family 05/09/19 documented as of this encounter
== END 2025-07-28 10:00 | disposition home or self-care (01) ==
LOC: ER 13:29 → CSU 14:27
PROVIDERS: Clinical Nurse Specialist Acute Care; Internal Medicine Cardiovascular Disease; Admitting Provider Family Medicine; Emergency Provider Family Medicine; PCP Nurse Practitioner Family; Visit Provider Registered Nurse
DX: I25.118 Atherosclerotic heart disease of native coronary artery with other forms of angina pectoris (principal); E11.9 Type 2 diabetes mellitus without complications; I10 Essential (primary) hypertension; E78.2 Mixed hyperlipidemia; Z79.02 Long term (current) use of antithrombotics/antiplatelets; Z79.82 Long term (current) use of aspirin; Z95.5 Presence of coronary angioplasty implant and graft; E03.9 Hypothyroidism, unspecified; R00.2 Palpitations; G47.30 Sleep apnea, unspecified; F41.8 Other specified anxiety disorders; Z87.891 Personal history of nicotine dependence; Z82.49 Family history of ischemic heart disease and other diseases of the circulatory system
CPT/HCPCS: 36415; 36416; 71045; 78452; 80048; 80053; 82962; 83036; 83690; 84484; 85025; 85730; 93005; 93017; 93308; 96365; 96366; 96375; 97165; 99285; A9500; G0378; J1644; J2785; J9999

== ENCOUNTER → 2025-07-29 14:33 | Outpatient (BNVA) | payer MEDICARE, SELFPAY | PROVIDERS: PCP Nurse Practitioner Family; Visit Provider Nurse Practitioner Family | DX: E11.59 Type 2 diabetes mellitus with other circulatory complications (principal) | CPT/HCPCS: 82962 ==

== ENCOUNTER → 2025-08-10 15:24 | Outpatient (BNVA) | payer MEDICARE, SELFPAY | PROVIDERS: PCP Nurse Practitioner Family; Visit Provider Nurse Practitioner Family | DX: I25.10 Atherosclerotic heart disease of native coronary artery without angina pectoris (principal); I10 Essential (primary) hypertension; Z95.5 Presence of coronary angioplasty implant and graft; R07.89 Other chest pain | CPT/HCPCS: 99214 ==